=== PATIENT | female | born 1940 | race Caucasian/White ===

== ENCOUNTER 2017-10-24 15:51 | Observation (INO) | payer MEDICARE, OTHER, SELFPAY ==
[2017-10-24] VITALS (10 sets, daily range): BP systolic 126–168; BP diastolic 61–71; PULSE 57–72; RESP 14–22; TEMP 35.6–36.6; O2SAT 94–98; BMI 30.9; BMI 30.5
--- NOTE | 2017-10-24 16:08 | ED.VISSUMM ---
- ER Visit Summary Date of Service: 10/24/17 Chief Complaint: Chest pain History of Present Illness: The patient is a 76 F with left-sided chest pain. The pain has been going on for several days. It is associated with a backache. The patient thought this was her normal muscular pain, as she typically has back pain from time to time, but the chest pain is new. It feels like an ache. Nothing seems to make it worse. No change with exertion. No other associated symptoms like nausea, vomiting, shortness of breath. Patient has a history of hypertension, thyroid cancer, MVP, skipped heartbeats, and osteoarthritis. No history of heart disease, DVT, PE, or aortic disease. Physical Examination: Afebrile and vital signs unremarkable. Patient sitting upright and appears in no acute distress. Speaking in breathing comfortably. Skin is normal color without diaphoresis or pallor. Heart regular rate and rhythm. Lungs clear. Abdomen soft. Extremities unremarkable. Good pulses. Test Results: EKG shows sinus rhythm at a rate of 67. No sign of acute ischemia or infarction pattern. Laboratory studies and chest x-ray are pending. Emergency Department Course and Treatment: Patient treated with aspirin and placed on a monitor. Workup was unremarkable. The patient has a heart score of 4. She is currently pain-free. She was discussed with the hospitalist and will be admitted for observation in the PCU. Treatment Plan: As above Disposition: Admission Impression: 1. Chest pain This note was generated with [employer] dictation software. It may contain incorrect words, spelling, and punctuation that were not noted in review of the chart prior to signing ED Disposition - Plan for ED Patient: Chief Complaint: Chest Pain Referrals: Ly Ledbetter MD [Primary Care Provider] -
[2017-10-24] MEDS: Aspirin 81 MG TAB.CHEW 324 MG PO (16:12)
[2017-10-24 16:24] LABS: Absolute Lymphocyte Count 2.23 X10^3/ul (0.83-4.51); Absolute Neutrophil Count 2.6 X10^3/uL (2.0-7.7); Basophil# 0.02 X10^3/uL; Basophil% 0.3 % (0-1); Eosinophils% 3.4 % (0-5); Hematocrit 43.3 % (37-47); Lymphocyte # 2.23 X10^3/ul (4.0); Lymphocyte % 38.4 % (19-41); Mean Corp Hgb Conc 32.3 g/gl (32-36); Mean Corpuscular Hgb 32.3 pg (27.0-32.0); Mean Corpuscular Volume 99.8 fL (81-99); Mean Platelet Vol. 9.9 fl (6.2-12.0); Monocyte# 0.75 X10^3/uL; Monocyte% 12.9 % (0-10); Neutrophil % 44.8 % (47-70); POSITIVE COUNT NO; POSITIVE DIFFERENTIAL NO; POSITIVE MORPHOLOGY NO; Platelet Count 288 K/mm3 (150-450); RBC Distribution Width CV 12.9 % (11.6-14.6); RBC Distribution Width SD 47.6 fl (35.1-43.9); Red Blood Count 4.34 M/mm3 (4.2-5.4); White Blood Count 5.8 K/mm3 (4.4-11.0)
[2017-10-24 16:33] LABS: Anion Gap 7 (5-15); BUN 20 mg/dL (7-18); Calcium,Total 8.6 mg/dL (8.5-10.1); Chloride 107 mmol/L (98-107); EST Glomerular Filtration Rate 57 mL/min (>60); Est Glom Filt Rate - Afr Amer 69 mL/min (>60); Estimated Creatinine Clearance 40.04 ml/min; Glucose 114 mg/dL (74-106); Potassium 3.8 mmol/L (3.5-5.1); Sodium Level 140 mmol/L (136-145)
--- NOTE | 2017-10-24 19:21 | PCM.HP.STD ---
Problem List (1) Chest pain Status: Acute Qualifiers: Chest pain type: unspecified Qualified Code(s): R07.9 - Chest pain, unspecified (2) HTN (hypertension) Status: Chronic Qualifiers: Hypertension type: essential hypertension Qualified Code(s): I10 - Essential (primary) hypertension (3) Hypothyroidism Status: Chronic Qualifiers: Hypothyroidism type: unspecified Qualified Code(s): E03.9 - Hypothyroidism, unspecified (4) History of thyroid cancer Status: Chronic (5) Anxiety and depression Status: Chronic History of Present Illness Date of Admission: 10/24/17 Chief Complaint: Chest pain The patient is a 76 y/o F w/ PMHx: HTN, Hypothyroidism, Hx Thyroid CA s/p resection, Obesity, Anxiety and Depression, Chronic back discomfort who presents to the [facility] ED on 10/24/17 with history of onset chest pain, left sided, described as an ache, rated at its maximum discomfort 3/10, notes some radiation toward her right back however she does have chronic discomfort in the region and follows w/ massage therapies, noted to be intermittent without associated dyspnea, nausea, emesis, diaphoresis x 3 days. She denies any recent increased activity. She notes prior history of difficulty performing exercise stress testing secondary to her legs giving out but also notes severe anxiety with chemical stress testing. She denies any recent increased stress. She upon exam in the ED does have reproducible discomfort to the region she notes having chest discomfort. She does have a paternal family history of aortic aneurysm but states that she has been screened for this and testing has been unremarkable. In the ED work-up included AF, HR 62, BP 126/71, RR 14, 95% on RA, CBC w/ WBC 5.8, Hgb 14, Plts 288 without left shift, BMP with glucose 114, trop < 0.015, EKG with SR with no acute findings, CXR unremarkable. In the ED patient administered ASA 324 mg po x 1. Past Medical History Past Medical History (Chronic Problems): Chronic Problems HTN (hypertension) (Chronic) Hypothyroidism (Chronic) History of thyroid cancer (Chronic) Anxiety and depression (Chronic) Allergies lisinopril Allergy (Verified 10/24/17 16:06) Other COUGH morphine Allergy (Verified 10/24/17 16:06) Other DELIRIUM quinapril [From Accupril] Allergy (Verified 10/24/17 16:06) Other COUGH naproxen [From Naprosyn] Adverse Reaction (Verified 10/24/17 16:06) Nausea rofecoxib [From Vioxx] Adverse Reaction (Verified 10/24/17 16:06) Nausea Sulfa (Sulfonamide Antibiotics) Adverse Reaction (Verified 10/24/17 16:06) Nausea Home Medications: Ambulatory Orders Medication Instructions Recorded ALPRAZolam [Xanax] 0.125 mg PO BID PRN PRN 11/18/16 Cholecalciferol (Vitamin D3) 2,000 unit PO PETERSEN 11/18/16 [Vitamin D3] Diltiazem CD [Cardizem CD] 120 mg PO DAILY 11/18/16 Levothyroxine Sodium [Levoxyl] 100 mcg PO DAILY 11/18/16 Paroxetine HCl [Paxil] 20 mg PO DAILY 11/18/16 Spironolactone [Aldactone] 25 mg PO DAILY 11/18/16 Ibuprofen 400 mg PO PRN PRN 10/24/17 Optive 1 drop EACH EYE BID 10/24/17 Vitamin E 400 unit PO DAILY 10/24/17 Surgical History: - - Thyroid resection, cholecystectomy, hysterectomy, bilateral tubal ligation, bilateral partial knee replacement, bilateral carpal tunnel surgery, appendectomy, left foot surgery. 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 Tobacco Use: Non-smoker Alcohol: Occasional - Patient notes 1-2 glasses of white wine per day. Drugs: None - *Family History Maternal History Items: - - Patient notes a maternal family history of diabetes with mother passing at age 92. Paternal History Items: - - Patient notes a paternal family history of aortic aneurysm, passing in his 60s. Review of Systems Constitutional: Reports: Fatigue. Denies: Chills, Fever, Weight Change HEENT: Denies: Head Aches, Sinus Congestion, Sinus Drainage Cardiovascular: Reports: Chest Pain. Denies: Chest Pressure, Chest Tightness, Heaviness, Light Headedness, Orthopnea, Palpitations, Syncope Respiratory: Denies: Cough, Shortness of Breath, Shortness of breath at rest, Shortness of breath upon exertion, Sputum production Gastrointestinal: Denies: Abdominal Pain, Nausea, Vomiting Genitourinary: Denies: Dysuria Musculoskeletal: Reports: Back Pain. Denies: Joint Pain, Joint Tenderness Skin: Denies: Rash, Wounds Neurological: Denies: Numbness, Tingling, Focal weakness Psychiatric: Reports: Anxiety, Depression. Denies: Homicidal Ideations, Suicidal Ideations Hematologic/ Lymphatic: Denies: Easy Bruising, Easy Bleeding VTE Information - Inpt Only VTE Present on Admission: No VTE Mechan Device Prophylaxis: SCD's VTE Pharm Prophylaxis ordered?: Yes Patient Problems: Active and Suspected Problems Chest pain (Acute) Subjective: Seated upright in the ED bed, no acute distress, no current chest discomfort but is reproducible on examination. Objective: Physical Examination: General: awake, alert, oriented x 3 and cooperative, seated upright in the ED bed in no apparent distress. Skin: normal color, turgor, no icterus, cyanosis. HEENT: AT/NC, EOMI, PERRLA, MMM, no carotid bruits or JVD noted. Lungs: CTA bilaterally, moderate effort, mild decrease BL bases, no rales, ronchi or wheezing. Heart: Regular rate and rhythm; no gallop, rub audible, reproducible left-sided chest discomfort with palpation. Abdomen: soft, obese, NTTP, ND, normal BS, no HSM. Extremities: no cyanosis, clubbing, or edema. Neurological: patient awake, alert, oriented x 3; cognitive function intact; pupils equally reactive to light and accomodation; cranial nerves II-XII grossly normal, moving all 4 extremities, no focal deficits, strength globally decreased. Psychiatric: affect appears mildly anxious and asking several questions regarding stress testing, no acute evidence of depressive feelings. - Physical Exam Vital Signs Temp Pulse Resp BP Pulse Ox 96.1 F L 57 L 17 156/61 H 95 10/24/17 15:52 10/24/17 19:04 10/24/17 19:04 10/24/17 19:04 10/24/17 19:04 Oxygen Delivery Method Room Air Weight: 179 lb 14.355 oz Body Mass Index (BMI) 30.9 Laboratory Tests Past 24 Hrs 10/24/17 10/24/17 16:05 16:05 WBC 5.8 RBC 4.34 Hgb 14.0 Hct 43.3 MCV 99.8 H MCH 32.3 H MCHC 32.3 RDW 12.9 RDW Differential 47.6 H Plt Count 288 MPV 9.9 Immature Gran % (Auto) 0.200 Neut % (Auto) 44.8 L Lymph % (Auto) 38.4 [place] % (Auto) 12.9 H Eos % (Auto) 3.4 Baso % (Auto) 0.3 Absolute Neuts (auto) 2.6 Absolute Lymphs (auto) 2.23 Total Counted Not Reportable Sodium 140 Potassium 3.8 Chloride 107 Carbon Dioxide 26.0 Anion Gap 7 BUN 20 H Creatinine 1.00 Estim Creat Clear Calc 40.04 Est GFR (MDRD) Af Amer 69 Est GFR (MDRD) Non-Af 57 L BUN/Creatinine Ratio 20.0 Glucose 114 H Calcium 8.6 Troponin I < 0.015 Assessment/Plan All Active Problems Chest pain (Acute) The patient is a 76 y/o F w/ PMHx: HTN, Hypothyroidism, Hx Thyroid CA s/p resection, Obesity, Anxiety and Depression, Chronic back discomfort who presents to the [facility] ED on 10/24/17 with history of onset chest pain, left sided, described as an ache, rated at its maximum discomfort 3/10, notes some radiation toward her right back however she does have chronic discomfort in the region and follows w/ massage therapies, noted to be intermittent without associated dyspnea, nausea, emesis, diaphoresis x 3 days. (1) Atypical Chest Pain: Suspect likely musculoskeletal; however, not certain. EKG in ED SR without acute evidence of ischemia, CXR w/ no acute findings, initial trop <0.015. Will admit to PCU, place on a monitored bed to assure no acute myocardial infarction with serial cardiac enzymes and EKGs. Patient is unable to perform exercise thus will proceed with AM nuclear stress testing. ASA, NG, morphine. FLP in AM. Mag pending. (2) Hypothyroidism w/ Hx Thyroid CA: s/p resection. Continue home synthroid regimen, TSH and FT4 pending. (3) Anxiety and Depression: Likely contributing to acute presentation with prior history of unremarkable stress testing. Continue home low-dose Xanax and fluoxetine regimen. (4) Hypertension: Continue home regimen including Cardizem, spironolactone, PRN hydralazine. (5) Obesity: Weight loss and lifestyle changes encouraged. (6) DVT prophylaxis: SCD, Lovenox. Code Visit OBSV E&M: 29033 Initial observation care L3
--- NOTE | 2017-10-24 20:02 | NURSING ---
Called [facility] charge nur[facility]iel to send patient to the floor.
[2017-10-24 21:49] LABS: Magnesium 2.2 mg/dL (1.6-2.6); T4 Free Direct 1.26 ng/dL (0.76-1.46); Thyroid Stim Hormone (TSH) 0.78 uIU/mL (0.358-3.74)
[2017-10-24] MEDS: ALPRAZolam 0.25 MG Tablet 0.125 MG PO (22:36)
[2017-10-25] VITALS (7 sets, daily range): BP systolic 108–113; BP diastolic 57–78; PULSE 54–65; RESP 16–18; TEMP 36.2–36.6; O2SAT 94–97
[2017-10-25] MEDS: 0.9% Normal Saline 1,000 ML 100 ML IV (00:16)
[2017-10-25 02:24] LABS: Hematocrit 40.6 % (37-47); Hemoglobin 13.2 g/dl (12.0-15.0); Mean Corp Hgb Conc 32.5 g/gl (32-36); Mean Corpuscular Hgb 32.4 pg (27.0-32.0); Mean Corpuscular Volume 99.5 fL (81-99); Mean Platelet Vol. 10.1 fl (6.2-12.0); Platelet Count 275 K/mm3 (150-450); RBC Distribution Width CV 13.1 % (11.6-14.6); Red Blood Count 4.08 M/mm3 (4.2-5.4); White Blood Count 5.4 K/mm3 (4.4-11.0)
[2017-10-25 02:25] LABS: Scan Indicated on CBC? Y/N NO
[2017-10-25 02:29] LABS: Prothrombin Time (Protime)PT. 13.2 SECONDS (11.7-14.9)
[2017-10-25 02:30] LABS: Partial Thromboplast Time 31.2 Seconds (24.1-36.2)
[2017-10-25 02:42] LABS: ALB/GLOB Ratio 1.1 RATIO (0.9-2.4); AST(SGOT) 14 U/L (15-37); Alanine Aminotransfer ALT/SGPT 27 U/L (13-56); Albumin, Serum 3.4 g/dL (3.2-5.0); Alkaline Phosphatase 91 U/L (45-117); Anion Gap 7 (5-15); BUN 16 mg/dL (7-18); BUN/Creat Ratio 17.6 RATIO (10-20); Calcium,Total 8.6 mg/dL (8.5-10.1); Chloride 110 mmol/L (98-107); Cholesterol 180 mg/dL (200); Creatinine, Serum 0.91 mg/dL (0.55-1.02); EST Glomerular Filtration Rate 64 mL/min (>60); Est Glom Filt Rate - Afr Amer 77 mL/min (>60); Globulin 3.2 g/dL (2.2-4.2); Glucose 110 mg/dL (74-106); High Density Lipoprotein 52 mg/dL; Protein, Total 6.6 g/dL (6.4-8.2); Sodium Level 144 mmol/L (136-145); Triglycerides 101 mg/dL; Very Low Density Lipoprotein 20 mg/dL (5-40)
[2017-10-25] MEDS: Levothyroxine 100 MCG Tablet PO (06:11)
[2017-10-25] MEDS: Aspirin E.C. 81 MG Tablet PO (06:11)
[2017-10-25] MEDS: Spironolactone 25 MG Tablet PO (11:56)
[2017-10-25] MEDS: dilTIAZem CD 120 MG Capsule PO (11:56)
--- NOTE | 2017-10-25 13:13 | STRESSREP ---
Stress Test Report Pharmacologic myocardial perfusion stress test. 76-year-old lady with a history of chest pain. Medications aspirin, Cardizem, Pepcid. Stress protocol: Resting EKG demonstrates normal sinus rhythm with a rate of 63 bpm normal intervals and noted resting blood pressures 150/84 mmHg. 0.4 mg regadenoson was infused per usual protocol followed by Intravenous saline flush injection continuous EKG monitoring was performed. The maximum heart rate attained was 88 bpm which was 61% of maximum predicted heart rate maximum workload was 1 metabolic equivalent. Patient maintained sinus rhythm throughout the recording at rest were no ST or T-wave changes noted suggest abnormal flow reserve. Myocardial perfusion protocol. 11.6 mCi of technetium 99m sestamibi was injected at rest. 0.4 mg regadenoson was infused per usual protocol peak infusion 34.4 mCi of technetium 99m sestamibi was injected stress images were obtained stress and rest images were reconstructed and compared in the short axis vertical long and horizontal long axis. Gated images were also obtained Perfusion SPECT analysis: Review of the stress images demonstrate normal uptake of tracer noted in all areas of the myocardium. The resting images similarly demonstrate normal uptake of tracer noted in all areas of the myocardium. No areas of reversibility are noted suggest ischemia and no previous infarct is noted. Gated SPECT analysis: The gated ejection fraction is noted to be 83%. Conclusion: Normal pharmacologic myocardial perfusion stress test. Preserved ejection fraction.
--- NOTE | 2017-10-25 14:57 | PCM.DC ---
- Discharge Diagnoses Current Active Problems: Current Active and Chronic Problems HTN (hypertension) (Chronic) Hypothyroidism (Chronic) History of thyroid cancer (Chronic) Anxiety and depression (Chronic) Chest pain (Acute) You will use the following diet at home:: Cardiac Your food should be the consistency of: Regular Your liquids should be the consistency of: Regular/Thin Discharge Activity: Return to Normal Activity Allergies/Adverse Reactions: Allergies lisinopril Allergy (Verified 10/24/17 19:48) cough COUGH quinapril [From Accupril] Allergy (Verified 10/24/17 19:48) cough COUGH morphine Adverse Reaction (Verified 10/24/17 19:49) delirium DELIRIUM naproxen [From Naprosyn] Adverse Reaction (Verified 10/24/17 16:06) Nausea rofecoxib [From Vioxx] Adverse Reaction (Verified 10/24/17 16:06) Nausea Sulfa (Sulfonamide Antibiotics) Adverse Reaction (Verified 10/24/17 16:06) Nausea Medications to take at Discharge ALPRAZolam [Xanax] 0.125 mg PO BID PRN PRN 11/18/16 Cholecalciferol (Vitamin D3) [Vitamin D3] 2,000 unit PO PETRESEN 11/18/16 Diltiazem CD [Cardizem CD] 120 mg PO DAILY 11/18/16 Levothyroxine Sodium [Levoxyl] 100 mcg PO DAILY 11/18/16 Paroxetine HCl [Paxil] 20 mg PO DAILY 11/18/16 Spironolactone [Aldactone] 25 mg PO DAILY 11/18/16 Ibuprofen 400 mg PO PRN PRN 10/24/17 Optive 1 drop EACH EYE BID 10/24/17 Vitamin E 400 unit PO DAILY 10/24/17 Primary Care Physician: Ly Ledbetter MD [Primary Care Provider] - Please follow up with your Primary Care Physician in: 1-2 weeks Test Results: Test results from this visit will be discussed in further detail at your follow-up appointment, if applicable. Proposed Discharge Date: 10/25/17
--- NOTE | 2017-10-25 15:00 | PCM.DC.SUM ---
<Dima Gaines - Last Filed: 10/25/17 15:02> Discharge Date and Diagnosis - Problem List Patient Problems: Active and Suspected Problems Chest pain (Acute) Date of Admission: 10/24/17 Date of Discharge: 10/25/17 - Primary Discharge Diagnosis Active and Suspected Problems Chest pain (Acute), musculoskeletal HTN hypothyroidism obesity - Secondary Discharge Diagnosis Chronic Problems HTN (hypertension) (Chronic) Hypothyroidism (Chronic) History of thyroid cancer (Chronic) Anxiety and depression (Chronic) Hospital Course and Treatment Imaging Results: RAD/Chest 1 View (Portable) IMPRESSION: Normal x-ray examination of the chest. Stress test: Conclusion: Normal pharmacologic myocardial perfusion stress test. Preserved ejection fraction. Operations: None Procedures: Stress test Summary of Care Provided: Physical exam on day of discharge: General: Resting comfortably NAD Psych: A/Ox3 normal affect HEENT: PEARRLA AT NC Neck: Supple NT CV: RRR no m/t/r/g/h Resp: CTA Abd: [id number] Soft NT no guarding or rigidity Ext: DP2+= no edema Skin: W/D normal turgor Lymph/Heme: No active bleeding or adenopathy Neuro: CN2-12 intact Hospital course: The patient is a 76 year old F with a history of hypertension, anxiety depression, obesity, hypothyroidism, who presented to the emergency room with chief complaint of chest pain described as a 3 out of 10 left-sided achiness radiating towards her back with occasional palpitations. In the emergency room she had a negative chest x-ray, negative EKG, negative troponin. She was admitted to the PCU on telemetry for chest pain workup. She underwent a stress test following morning which was negative. She had negative troponin ?3, negative repeat EKGs, negative telemetry overnight. TSH and free T4 were normal. LDL was 108. Blood pressure was initially elevated at the time of admission however trended down without any further intervention. She is discharged home in stable condition and will need follow-up with her PCP in 1-2 weeks. This patient was seen by Dima Gaines PA-C under the supervision of Doctor Alvarez. [] Discharge Diet: Low fat/ Low Cholesterol, 2000 mg Sodium Diet Discharge Activity: Return to Normal Activity Home Medications: Medications to take at Discharge ALPRAZolam [Xanax] 0.125 mg PO BID PRN PRN 11/18/16 Cholecalciferol (Vitamin D3) [Vitamin D3] 2,000 unit PO PETERSEN 11/18/16 Diltiazem CD [Cardizem CD] 120 mg PO DAILY 11/18/16 Levothyroxine Sodium [Levoxyl] 100 mcg PO DAILY 11/18/16 Paroxetine HCl [Paxil] 20 mg PO DAILY 11/18/16 Spironolactone [Aldactone] 25 mg PO DAILY 11/18/16 Ibuprofen 400 mg PO PRN PRN 10/24/17 Optive 1 drop EACH EYE BID 10/24/17 Vitamin E 400 unit PO DAILY 10/24/17 Primary Care Physician: Ly Ledbetter MD [Primary Care Provider] - Please follow up with your Primary Care Physician in: 1-2 weeks Disposition: Home Minutes spent on discharge:: 35 Patient Condition:: Stable Medical Necessity - Tobacco Use Smoking Status: Never smoker - Did note history of secondhand smoke exposure from spouse but this was approximately 30 years prior. Tobacco Use: Non-smoker Meaningful Use Info Meaningful Use Diagnoses (Choose all that apply): None applicable <Lalito Alvarez - Last Filed: 10/25/17 15:16> Discharge Date and Diagnosis - Primary Discharge Diagnosis Active and Suspected Problems Chest pain (Acute) - Secondary Discharge Diagnosis Chronic Problems HTN (hypertension) (Chronic) Hypothyroidism (Chronic) History of thyroid cancer (Chronic) Anxiety and depression (Chronic) Hospital Course and Treatment Summary of Care Provided: The patient is a 76 year old F medical comorbidities include hypertension hypothyroidism obesity with BMI of 30.6 admitted with chest pain. Patient was placed on an monitored bed did rule out [place] with serial cardiac enzymes subsequently underwent a nuclear stress test which is negative for stress-induced ischemia. Patient was discharged and instructed to follow-up with PCP Hospital course: As elicited above by Dima Gaines Code Visit OBSV E&M: 65913 Observation care discharge
== END 2017-10-25 14:59 | disposition home or self-care (01) ==
LOC: ED 16:43 → PCU 19:54
PROVIDERS: Admitting Provider Family Medicine; Emergency Provider Emergency Medicine; Family Provider Internal Medicine; PCP Internal Medicine; Visit Provider Internal Medicine
DX: R07.89 Other chest pain (principal); M54.9 Dorsalgia, unspecified; I10 Essential (primary) hypertension; M19.90 Unspecified osteoarthritis, unspecified site; Z85.850 Personal history of malignant neoplasm of thyroid; E03.9 Hypothyroidism, unspecified; Z79.899 Other long term (current) drug therapy; F41.9 Anxiety disorder, unspecified; F32.9 Major depressive disorder, single episode, unspecified; E66.9 Obesity, unspecified; Z68.30 Body mass index [BMI] 30.0-30.9, adult; Z71.3 Dietary counseling and surveillance
CPT/HCPCS: 36415; 71045; 78452; 80048; 80053; 80061; 83735; 84439; 84443; 84484; 85025; 85027; 85610; 85730; 93005; 93017; 96360; 96361; 99218; 99283; A9500; J7030; A4216; G0378; J2785

== ENCOUNTER 2018-04-03 06:18 | Day surgery (SDC) | payer MEDICARE, OTHER, SELFPAY ==
[2018-04-03 06:40] VITALS: BP 147/66; PULSE 61; RESP 14; TEMP 36.4; O2SAT 96; BMI 30.7
--- NOTE | 2018-04-03 07:15 | GASB_PTH ---
PATIENT: RAYMOND LEDESMA LOC: EN U#:[id number] AGE/SX: 77/F ROOM: RE04/03/[address]: Dr. Kyle Roland MD : 1940 BED: DIS: 04/03/2018 SPEC #: [id number] RECD: 04/03/18 08:16 STATUS: KAREEN TOÑITO #: [id number] NEHEMIAS: 04/03/18 07:[address]: Kyle Roland DEPT: SURGICAL PATHOLOGY RECD BY: Cristofer James ENTERED: 04/03/18 10:27 SP TYPE: Gastric Bx OTHR DR: Dr. Ly Ledbetter MD Tissues: A - Gastric mucous membrane B - Gastric mucous membrane C - Esophagus, NOS Procedures: Special Stain Group II Surgery Specimen Level IV Alcian Blue/PAS (control) HEADER OPERATION: EGD (MOD) PRE-OP DIAGNOSIS: Abdominal pain TISSUE SUBMITTED: A - Duodenal biopsy, B - Antral biopsy for H. pylori and pathology, C - Distal esophageal biopsies MICROSCOPIC DIAGNOSIS A. Duodenum, biopsy: Focal nonspecific chronic inflammation. See comment. B. Gastric antrum, biopsy: Mild chronic gastritis. See comment. C. Distal esophagus, biopsy: Focal changes of reflux. Gastroesophageal junctional mucosa with chronic and mild acute inflammation. No evidence of intestinal metaplasia. See comment. AM:[email or web address] 04/04/18 COMMENT A. No significant flattening of villi is seen and the submucosa is not expanded by inflammatory cells. Clinical correlation is suggested. B. The results of immunohistochemistry for Helicobacter pylori will be reported separately ([id number]). C. Alcian blue/PAS stain with matched control supports the above diagnosis. MICROSCOPIC DESCRIPTION Slides are reviewed. GROSS DESCRIPTION A - Received in fixative is one container labeled with the patient's name and designated duodenal biopsy. The specimen consists of one irregular fragment of light desai soft tissue that measures 0.6 x 0.2 x 0.1 cm. The specimen is totally submitted in one cassette. B - Received in fixative is one container labeled with the patient's name and designated antral biopsy. The specimen consists of one irregular fragment of light desai soft tissue that measures 0.5 x 0.2 x 0.1 cm. The specimen is totally submitted in one cassette. C - Received in fixative is one container labeled with the patient's name and designated distal esophagus biopsy. The specimen consists of two irregular fragments of light desai soft tissue that in aggregate measure 0.5 x 0.3 x 0.1 cm. The specimen is totally submitted in one cassette. / AM:fabrizio 04/03/18 TC:3 CPT: 64620 x3, 41673
--- NOTE | 2018-04-03 07:15 | IMM_PTH ---
PATIENT: RAYMOND LEDESMA LOC: EN U#:[id number] AGE/SX: 77/F ROOM: RE04/03/[address]: Dr. Kyle Roland MD : 1940 BED: DIS: 04/03/2018 SPEC #: [id number] RECD: 04/03/18 10:39 STATUS: KAREEN REFlor #: [id number] NEHEMIAS: 04/03/18 07:[address]: Kyle Roland DEPT: IMMUNOHISTOCHEMISTRY RECD BY: Cassie Fuller ENTERED: 04/03/18 10:40 SP TYPE: IMMUNO OTHR DR: Dr. Ly Ledbetter MD Tissues: B - Stomach, NOS Procedures: H Pylori (initial) PHYSICIAN & INSTITUTION [place] [id number] SPECIMEN INFORMATION: Tissue Source: B - Antral biopsy Clinical Info: Abdominal pain Specimen Number: [id number] CPT code: 62317 METHODOLOGY: Deparaffinized sections of prefer/formalin-fixed tissue or PAP/DQ stained slides are incubated with monoclonal/polyclonal antibodies/oligonucleotide probes. Localization is made via biotin free immunoperoxidase method. Appropriate controls are performed and reacted as expected. Results on target cell population are indicated in the following table: RESULTS: ANTIBODY / CLONE RESULT Block B H Pylori (polyclonal) negative These tests were developed and their performance characteristics determined by [facility]. They may not have been cleared or approved by the [place]. Food and Drug Administration. The FDA has determined that such clearance or approval is not necessary. INTERPRETATION: B. Antral biopsy: Negative for Helicobacter pylori organisms. AM:fabrizio 04/04/18
[2018-04-03 07:45] VITALS: BP 126/59; BP 147/66; PULSE 63; RESP 16; TEMP 36.2; O2SAT 95
--- NOTE | 2018-04-03 07:48 | OP.ENDO_ITS ---
Patient Name: Evelyn Cintron Procedure Date: 04/03/2018 7:22 AM Date of : 1940 Age: 77 Procedure: Upper GI endoscopy Indications: Epigastric abdominal pain Providers: Kyle Roland MD Medicines: Midazolam 1.5 mg IV, Meperidine 50 mg IV Complications: No immediate complications. Procedure: Pre-Anesthesia Assessment: - Prior to the procedure, a History and Physical was performed, and patient medications and allergies were reviewed. The patient's tolerance of previous anesthesia was also reviewed. The risks and benefits of the procedure and the sedation options and risks were discussed with the patient. All questions were answered, and informed consent was obtained. Prior Anticoagulants: The patient has taken no previous anticoagulant or antiplatelet agents. ASA Grade Assessment: II - A patient with mild systemic disease. After reviewing the risks and benefits, the patient was deemed in satisfactory condition to undergo the procedure. After obtaining informed consent, the endoscope was passed under direct vision. Throughout the procedure, the patient's blood pressure, pulse, and oxygen saturations were monitored continuously. The gastroscope was introduced through the mouth, and advanced to the second part of duodenum. The upper GI endoscopy was accomplished without difficulty. The patient tolerated the procedure well. Moderate Sedation: Moderate (conscious) sedation was personally administered by the endoscopist. The following parameters were monitored: oxygen saturation, heart rate, blood pressure, and response to care. Total physician intraservice time was 10 minutes. Scope In: 7:36:36 AM Scope Out: 7:41:34 AM Total Procedure Duration Time 0 hours 4 minutes 58 seconds Findings: Esophagitis with no bleeding was found 40 cm from the incisors. Biopsies were taken with a cold forceps for histology. A 1 cm hiatal hernia was present. Diffuse mildly erythematous mucosa without bleeding was found in the gastric antrum. Biopsies were taken with a cold forceps for histology. Diffuse mildly erythematous mucosa without active bleeding and with no stigmata of bleeding was found in the duodenal bulb. Biopsies were taken with a cold forceps for histology. Impression: - Reflux esophagitis. Biopsied. - 1 cm hiatal hernia. - Erythematous mucosa in the antrum. Biopsied. - Erythematous duodenopathy. Biopsied. Findings would suggest that gastritis and reflux esophagitis are consistent with patient's complaint of epigastric pain and treatment has already been initiated with a proton pump inhibitor Recommendation: - Discharge patient to home. - Resume previous diet. - Continue present medications. - Telephone my office for pathology results in 1 week. Patient may travel as her plans are currently scheduled Procedure Code(s): --- Professional --- 55495, Esophagogastroduodenoscopy, flexible, transoral; with biopsy, single or multiple 19958, 59, Moderate sedation services provided by the same physician or other qualified health plant care worker performing the diagnostic or therapeutic service that the sedation supports, requiring the presence of an independent trained observer to assist in the monitoring of the patient's level of consciousness and physiological status; initial 15 minutes of intraservice time, patient age 5 years or older Diagnosis Code(s): --- Professional --- K21.0, Gastro-esophageal reflux disease with esophagitis K44.9, Diaphragmatic hernia without obstruction or gangrene K31.89, Other diseases of stomach and duodenum R10.13, Epigastric pain CPT copyright 2017 [employer]. All rights reserved. The codes documented in this report are preliminary and upon medical biller/coder review may be revised to meet current compliance requirements. Kyle Roland MD 04/03/2018 7:47:25 AM This report has been signed electronically. Number of Addenda: 0 Note Initiated On: 04/03/2018 7:22 AM
[2018-04-03 07:50] VITALS: BP 114/51; BP 136/62; BP 147/66; BP 149/63; BP 154/68; PULSE 58; RESP 16; O2SAT 95; O2SAT 97; O2SAT 98; O2SAT 99
[2018-04-03 07:55] VITALS: BP 127/56; BP 147/66; PULSE 59; RESP 16; O2SAT 93
[2018-04-03 08:00] VITALS: BP 124/57; BP 147/66; PULSE 59; RESP 16; TEMP 36.1; O2SAT 92
[2018-04-03 08:11] VITALS: BP 147/66
== END 2018-04-03 08:28 | disposition home or self-care (01) ==
LOC: EN 06:20 → AC 06:22
PROVIDERS: Family Provider Internal Medicine; PCP Internal Medicine; Referring Provider Surgery; Visit Provider Surgery
PROC: (CPT 43239; principal; 2018-04-03 07:10)
DX: K29.50 Unspecified chronic gastritis without bleeding (principal); K21.0 Gastro-esophageal reflux disease with esophagitis; K44.9 Diaphragmatic hernia without obstruction or gangrene; F34.1 Dysthymic disorder; R00.2 Palpitations; I05.9 Rheumatic mitral valve disease, unspecified; E66.3 Overweight; Z68.30 Body mass index [BMI] 30.0-30.9, adult; Z79.899 Other long term (current) drug therapy
CPT/HCPCS: 43239; 88305; 88313; 88342; 99152; J7120; J0290

== ENCOUNTER 2018-06-14 11:30 | Outpatient (RCR) | payer MEDICARE, OTHER, SELFPAY ==
--- NOTE | 2018-06-08 11:34 | HP.OTEVAL ---
Patient's Visit Information RAYMOND LEDESMA is a 77 year old F, referred to Occupational Therapy by Steve Ibanez MD, with a diagnosis of left trigger finger. Date of Evaluation: 06/08/18 Occupational Therapist: Ashlee Quevedo, CHRYSTAL/Nataly, CHT - Subjective Subjective: This 77 year old female was seen for initital OT eval following a left MF trigger finger sx. pt states she had sx in Feb and then was out ot town for 5 weeks. pt states she is having pain and difficulty with straightening her left MF. pt states she would like to know what she can do to make it feel better and not umcomfortable to use. - Pain left MF 5 Pain Intensity Range: 0, 5 - ROM PIP: left MF 0/95 right 0/95 DIP: left MF 0/60 right 0/50 ROM Comments: pt demo - Strength Cone Tender: left 25# right 33# Tripod Pinch: left 12# right 12# - Hand/Wrist Evaluation Total Score of Pain & Functional Sections: 31 - Goals Goal:: pt will demo ROM full functional ROM with no pain greater than 1/10 by d/c Goal:: pt will demo understanding of scar mtg by end of 2nd session to decrease scar adhesions and improve pts ROM by d/c - Rehabilitation General Assessment: pt demo with scar adhesion to left FDP/FDS limiting pts ext of lef MF- pt demo multiplue OA deformities 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 pt has pain with AROM. pt would benefit from skilled OT services 1-2x week for 3-4 weeks. today pt ed. on scar mtg, ROM and ice prn. pt demo understanding and agrees to POC Rehabilitation Potential: Excellent - Anticipated Interventions Anticipated Interventions: A/AAROM/PROM, Scar Care, Triggerpoint Release, Modalities, Orthoses - Visit Plan Frequency: 1-2x /Week Duration: 4 Weeks TEXT: Thank you for the opportunity to evaluate your patient. For Medicare and Medicare HMO plans, please review the plan of care and approve it. It will need to be FAXED BACK to us at [phone] for Medicare purposes. Please let me know if there are questions or concerns regarding this plan of care. Physician Signature: Date:
--- NOTE | 2018-06-11 08:58 | HP.OTEVAL ---
Patient's Visit Information RAYMOND LEDESMA is a 77 year old F, referred to Occupational Therapy by Steve Ibanez MD, with a diagnosis of left trigger finger. Date of Evaluation: 06/08/18 Occupational Therapist: Ashlee Quevedo, CHRYSTAL/Nataly, CHT - Subjective Subjective: This 77 year old female was seen for initital OT eval following a left MF trigger finger sx. pt states she had sx in Feb and then was out ot town for 5 weeks. pt states she is having pain and difficulty with straightening her left MF. pt states she would like to know what she can do to make it feel better and not umcomfortable to use. - Pain left MF 5 Pain Intensity Range: 0, 5 - ROM PIP: left MF 0/95 right 0/95 DIP: left MF 0/60 right 0/50 ROM Comments: pt demo - Strength Surface Plate Inspector: left 25# right 33# Tripod Pinch: left 12# right 12# - Hand/Wrist Evaluation Total Score of Pain & Functional Sections: 31 - Goals Goal:: pt will demo ROM full functional ROM with no pain greater than 1/10 by d/c Goal:: pt will demo understanding of scar mtg by end of 2nd session to decrease scar adhesions and improve pts ROM by d/c Goal:: Pt will demo understanding of joint protection and ergonomics when performing BADLs and IADLs by d/c. Pt will demo understanding of adaptive Equipment use to decrease stress on joints to allow pt to perform BADSL and IADLS at ROBB level. 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 pt has pain with AROM. pt would benefit from skilled OT services 1-2x week for 3-4 weeks. today pt ed. on scar mtg, ROM and ice prn. pt demo understanding and agrees to POC Rehabilitation Potential: Excellent - Anticipated Interventions Anticipated Interventions: A/AAROM/PROM, Scar Care, Triggerpoint Release, Modalities, Orthoses - Visit Plan Frequency: 1-2x /Week Duration: 4 Weeks TEXT: Thank you for the opportunity to evaluate your patient. For Medicare and Medicare HMO plans, please review the plan of care and approve it. It will need to be FAXED BACK to us at [phone] for Medicare purposes. Please let me know if there are questions or concerns regarding this plan of care. Physician Signature: Date:
--- NOTE | 2018-09-26 16:25 | HP.OT.NRP ---
HP - Discharge Summary - Patient Information RAYMOND LEDESMA was seen in my office for initial evaluation on 06/08/18. The following Plan of Care was established for this patient: Initial Frequency: 1-2x /Week Initial Duration: 4 Weeks - Anticipated Interventions Anticipated Interventions: A/AAROM/PROM, Scar Care, Triggerpoint Release, Modalities, Orthoses This patient was last seen in our office 06/18/18. Pertinent comments regarding their Occupational therapy will appear below: Pt was seen for 2 therapy visits due to trigger finger- pt's last visit she reported no pain- pt has not returned at this time and is D/C from OT services due to time lapse in tx. At this point I will be discontinuing this patient from occupational therapy. I would be happy to see this patient again in the future if found appropriate by the physician. Thank you! Ashlee Quevedo, OTR/L, CHT
== END 2018-06-14 19:00 | disposition home or self-care (01) ==
LOC: OT 11:30
PROVIDERS: Family Provider Internal Medicine; PCP Internal Medicine; Referring Provider Orthopaedic Surgery; Visit Provider Orthopaedic Surgery
DX: M65.332 Trigger finger, left middle finger (principal); M19.042 Primary osteoarthritis, left hand
CPT/HCPCS: 97035; 97140; 97166

== ENCOUNTER 2019-01-29 07:13 | Day surgery (SDC) | payer MEDICARE, OTHER, SELFPAY ==
--- NOTE | 2019-01-15 03:50 | HP_ITS ---
Intake Vital Signs 01/15/19 Body Mass Index (BMI) 30.9 01/15/19 Height 5 ft 3.5 in 01/15/19 Weight: 175 lb 01/15/19 Body Mass Index (BMI) 30.5 01/15/19 Blood Pressure 158/81 H 01/15/19 Blood Pressure Location Rt brachial 01/15/19 Blood Pressure Position Sitting 01/15/19 Respiratory Rate 18 Intake Visit Reasons: cscope Chief Complaint: Chest Pain Regional Airline Pilot Required: No Is patient in pain?: No Allergies lisinopril Allergy (Verified 01/15/19 15:33) cough quinapril [From Accupril] Allergy (Verified 01/15/19 15:33) cough morphine Adverse Reaction (Verified 01/15/19 15:33) delirium naproxen [From Naprosyn] Adverse Reaction (Verified 01/15/19 15:33) Nausea rofecoxib [From Vioxx] Adverse Reaction (Verified 01/15/19 15:33) Nausea Sulfa (Sulfonamide Antibiotics) Adverse Reaction (Verified 01/15/19 15:33) Nausea Medications ALPRAZolam [Xanax] 0.125 mg PO BID PRN PRN 11/18/16 [History Confirmed 01/15/19] Cholecalciferol (Vitamin D3) [Vitamin D3] 2,000 unit PO PETERSEN 11/18/16 [History Confirmed 01/15/19] Levothyroxine Sodium [Levoxyl] 100 mcg PO DAILY 11/18/16 [History Confirmed 01/15/19] Paroxetine [Paxil] 20 mg PO DAILY 11/18/16 [History Confirmed 01/15/19] Spironolactone [Aldactone] 25 mg PO DAILY 11/18/16 [History Confirmed 01/15/19] Optive 1 drp EACH EYE BID 10/24/17 [History Confirmed 01/15/19] melatonin 3 mg tablet 3 mg PO HS PRN 11/21/18 [History Confirmed 01/15/19] diltiazem CD 120 mg capsule,extended release 24 hr 120 mg PO DAILY #90 cap 12/04/18 [Rx Confirmed 01/15/19] PFSH Medical History Paroxysmal supraventricular tachycardia (Chronic) Hyperlipidemia (Chronic) Essential (primary) hypertension (Chronic) History of thyroid cancer (Chronic) Anxiety and depression (Chronic) Diverticulosis (Chronic) Dysmetabolic syndrome X (Chronic) Hemorrhoids (Chronic) Hypothyroidism (Chronic) Obesity (Chronic) Diarrhea (Resolved) Epigastric pain (Resolved) Surgical History Hx of appendectomy (Resolved) Hx of arthroscopic knee surgery (Resolved) Hx of carpal tunnel repair (Resolved) Hx of cataract extraction (Resolved) Hx of cholecystectomy (Resolved) Hx of colonoscopy (Resolved) Hx of foot surgery (Resolved) Hx of hysterectomy (Resolved) Hx of thyroidectomy (Resolved) Family History Mother Hypertension Diabetes Arthritis Father Arthritis Seizures Sister Arthritis Social History (Updated 01/15/19 @ 15:50 by Kyle Roland MD) Smoking Status: Never smoker second hand exposure: No alcohol intake: current alcohol intake frequency: a few times a week Alcohol type: wine substance use type: does not use caffeine: Yes frequency: does not exercise HPI HPI HPI: RAYMOND LEDESMA, is a 78 F who presents to the office today for HPI HPI Surgical H&P: Yes HPI: RAYMOND LEDESMA, is a 78 F who presents to the office today for surgical consultation regarding a personal history of colon polyps. The patient's most recent colonoscopy was January 2016. At that point she had 3 polyps identified. 2 were in the descending colon. One was in the sigmoid colon. Final pathology all consistent with tubular adenomas. The patient denies any bright red blood per rectum or melena. She does have some intermittent constipation and irregular bowel habit. No unexpected weight loss. She is now 3 years since the loss of her . She tries to stay reasonably active. ROS General General: No weight change, appetite, fatigue, colon cancer, breast cancer or weakness HEENT HEENT: Yes eye surgery; no difficulty swallowing, eye injury, swollen glands or hoarseness Endo Endocrine: Yes thyroid disease and thyroid cancer; no diabetes mellitus, Hair loss, heat intolerance or cold intolerance Skin Skin: No rash or changing moles Musc Musculoskeletal: Yes arthritis and rheumatoid arthritis; no back problems, gout or joint pain Cardio Cardiovascular: Yes high blood pressure; no murmur, pacemaker, heart disease, atrial fibrillation, heart attack, heart stent, palpitations, shortness of breat with exertion or chest pain Psych Psychiatric: Yes depression and anxiety; no hearing voices Resp Respiratory: No shortness of breath, No sleep apnea, No cough, No COPD, No asthma, No emphysema, No wheezing Gastro Gastrointestinal: Yes abdominal pain, No nausea or vomiting, No diarrhea, No constipation, No blood in stool, Yes acid reflux, No hemorrhoids, No ulcers, Yes gallbladder problem, No black,tarry stools Erick Hematologic: No blood thinners, No blood disorders, No bleeding, No anemia, No blood clots Neuro Neurologic: No weakness Exam Const General: cooperative, comfortable, no acute distress Nutritional Appearance: obese Orientation: alert, awake HENMO Head: normal to inspection Chest Chest palpation & inspection: normal inspection of the chest Resp Effort & Inspection: normal respiratory effort Auscultation: clear to auscultation bilaterally Cardio Rate: regular rate Rhythm: regular rhythm Heart Sounds: no murmurs GI Palpation: soft, no hepatosplenomegaly Auscultation: normal bowel sounds Skin General: no rashes or lesions noted Neuro Cognition: normal cognition Extrem General: no calf tenderness bilaterally Psych Affect: normal affect Assessment & Plan Problems 1. Personal history of colonic polyps Z86.010 Plan I recommend the patient a colonoscopy with possible biopsy or polypectomy as indicated. She is aware of the technique, benefits, risks, alternatives. She has had an opportunity to ask and have questions answered. We will schedule and proceed at her discretion. Because of the constipation we will provide magnesium citrate on day 1 and then MiraLAX split prep on day 2. I appreciate the ongoing opportunity of assisting with her surgical care CC: Dr. Ly Roland M.D., F.A.C.S. Coding Level of Care Code Off vis,est,level 2 Diagnoses Personal history of colonic polyps Z86.010 01/15/19 6060 <Electronically signed by Kyle huggins MD> Date _ Kyle Roland MD I have re-examined the patient. There are no clinical changes since date of exam.
[2019-01-15 15:33] VITALS: BMI 30.9
[2019-01-29] VITALS (8 sets, daily range): BP systolic 111–151; BP diastolic 55–81; PULSE 55–57; RESP 16–18; TEMP 36.2–36.3; O2SAT 91–98; BMI 30.4
[2019-01-29] MEDS: Lactated Ringers 1,000 ML 100 ML IV (07:53)
--- NOTE | 2019-01-29 08:15 | COLBX_PTH ---
PATIENT: RAYMOND LEDESMA LOC: EN U#:[id number] AGE/SX: 78/F ROOM: RE01/29/[address]: Dr. Kyle Roland MD : 1940 BED: DIS: 01/29/2019 SPEC #: [id number] RECD: 01/29/19 09:30 STATUS: KAREEN TOÑITO #: [id number] NEHEMIAS: 01/29/19 08:[address]: Kyle Roland DEPT: SURGICAL PATHOLOGY RECD BY: Alphonso Fulton ENTERED: 01/29/19 11:03 SP TYPE: COLON BX JIMENEZ DR: Dr. Ly Ledbetter MD Tissues: A - Ascending colon B - Ascending colon C - Sigmoid colon biopsy Procedures: Surgery Specimen Level IV HEADER OPERATION: Colonoscopy (MOD) PRE-OP DIAGNOSIS: Polyp history TISSUE SUBMITTED: A - Mid ascending colon polyp by cold snare, B - Biopsy of distal ascending colon polyp, C - Biopsy of proximal sigmoid biopsy MICROSCOPIC DIAGNOSIS A. Mid ascending colon polyp, biopsy: Tubular adenoma. B. Distal ascending colon polyp, biopsy: Fragments of tubular adenoma. C. Proximal sigmoid polyp, biopsy: Fragments of hyperplastic polyp. BRANDI:fabrizio 01/30/19 MICROSCOPIC DESCRIPTION Slides are reviewed. GROSS DESCRIPTION A - Received in fixative is one container labeled with the patient's name and designated mid ascending colon polyp. The specimen consists of multiple irregular fragments of light desai soft tissue that in aggregate measure 1.5 x 0.3 x 0.1 cm. The specimen is totally submitted in one cassette. B - Received in fixative is one container labeled with the patient's name and designated biopsy of distal ascending colon polyp. The specimen consists of multiple irregular fragments of light desai soft tissue that in aggregate measure 1 x 0.3 x 0.1 cm. The specimen is totally submitted in one cassette. C - Received in fixative is one container labeled with the patient's name and designated biopsy of proximal sigmoid polyp. The specimen consists of two irregular fragments of light desai soft tissue that in aggregate measure 0.5 x 0.4 x 0.1 cm. The specimen is totally submitted in one cassette. / BRANDI:fabrizio 01/29/19 TC:1 CPT: 49812 x3
--- NOTE | 2019-01-29 08:58 | OP.COLON_ITS ---
Patient Name: Evelyn Cintron Procedure Date: 01/29/2019 8:27 AM Date of : 1940 Age: 78 Procedure: Colonoscopy Indications: High risk colon cancer surveillance: Personal history of colonic polyps Providers: Kyle Roland MD Referring MD: Kyle Roland MD Medicines: Midazolam 3 mg IV, Meperidine 75 mg IV Patient Profile: Last Colonoscopy: January 2016. Complications: No immediate complications. Procedure: Pre-Anesthesia Assessment: - Prior to the procedure, a History and Physical was performed, and patient medications and allergies were reviewed. The patient's tolerance of previous anesthesia was also reviewed. The risks and benefits of the procedure and the sedation options and risks were discussed with the patient. All questions were answered, and informed consent was obtained. Prior Anticoagulants: The patient has taken no previous anticoagulant or antiplatelet agents. ASA Grade Assessment: II - A patient with mild systemic disease. After reviewing the risks and benefits, the patient was deemed in satisfactory condition to undergo the procedure. After I obtained informed consent, the scope was passed under direct vision. Throughout the procedure, the patient's blood pressure, pulse, and oxygen saturations were monitored continuously. The Duodenoscope was introduced through the anus and advanced to the cecum, identified by appendiceal orifice and ileocecal valve. The colonoscopy was performed without difficulty. The patient tolerated the procedure well. The quality of the bowel preparation was good. The ileocecal valve and the appendiceal orifice were photographed. Moderate Sedation: Moderate (conscious) sedation was personally administered by the endoscopist. The following parameters were monitored: oxygen saturation, heart rate, blood pressure, and response to care. Total physician intraservice time was 15 minutes. Scope In: 8:34:14 AM Scope Withdrawal Time 0 hours 13 minutes 35 seconds Scope Out: 8:51:29 AM Total Procedure Duration Time 0 hours 17 minutes 15 seconds Findings: The digital rectal exam findings include non-thrombosed external hemorrhoids, non-thrombosed internal hemorrhoids and internal hemorrhoids that prolapse with straining, but spontaneously regress to the resting position (Grade II). Pertinent negatives include {skip} . A 7 mm polyp was found in the mid ascending colon. The polyp was sessile. The polyp was removed with a cold snare. Resection and retrieval were complete. A 5 mm polyp was found in the distal ascending colon. The polyp was sessile. The polyp was removed with a cold biopsy forceps. Resection and retrieval were complete. A 4 mm polyp was found in the proximal sigmoid colon. The polyp was sessile. The polyp was removed with a cold biopsy forceps. Resection and retrieval were complete. Scattered diverticula were found in the sigmoid colon. Impression: - Non-thrombosed external hemorrhoids, non-thrombosed internal hemorrhoids and internal hemorrhoids that prolapse with straining, but spontaneously regress to the resting position (Grade II) found on digital rectal exam. - One 7 mm polyp in the mid ascending colon, removed with a cold snare. Resected and retrieved. - One 5 mm polyp in the distal ascending colon, removed with a cold biopsy forceps. Resected and retrieved. - One 4 mm polyp in the proximal sigmoid colon, removed with a cold biopsy forceps. Resected and retrieved. - Diverticulosis in the sigmoid colon. Recommendation: - Discharge patient to home. - Resume previous diet. - Continue present medications. - Repeat colonoscopy is not recommended due to current age (66 years or older) for screening purposes. - Telephone my office for pathology results in 1 week. Procedure Code(s): --- Professional --- 96491, Colonoscopy, flexible; with removal of tumor(s), polyp(s), or other lesion(s) by snare technique 92203, 59, Colonoscopy, flexible; with biopsy, single or multiple 79103, 59, Moderate sedation services provided by the same physician or other qualified health direct care specialist performing the diagnostic or therapeutic service that the sedation supports, requiring the presence of an independent trained observer to assist in the monitoring of the patient's level of consciousness and physiological status; initial 15 minutes of intraservice time, patient age 5 years or older Diagnosis Code(s): --- Professional --- Z86.010, Personal history of colonic polyps K64.1, Second degree hemorrhoids K64.4, Residual hemorrhoidal skin tags D12.2, Benign neoplasm of ascending colon D12.5, Benign neoplasm of sigmoid colon K57.30, Diverticulosis of large intestine without perforation or abscess without bleeding CPT copyright 2017 [employer]. All rights reserved. The codes documented in this report are preliminary and upon remote medical coder review may be revised to meet current compliance requirements. Kyle Roland MD 01/29/2019 8:57:49 AM This report has been signed electronically. Number of Addenda: 0 Note Initiated On: 01/29/2019 8:27 AM
== END 2019-01-29 10:08 | disposition home or self-care (01) ==
LOC: EN 07:13 → AC 07:15
PROVIDERS: Family Provider Internal Medicine; PCP Internal Medicine; Referring Provider Surgery; Visit Provider Surgery
PROC: 0DJD8ZZ Inspection of Lower Intestinal Tract, Via Natural or Artificial Opening Endoscopic (ICD-10-PCS; CPT 45378; principal; 2019-01-29 08:10)
DX: D12.2 Benign neoplasm of ascending colon (principal); K64.1 Second degree hemorrhoids; K57.30 Diverticulosis of large intestine without perforation or abscess without bleeding; Z86.010 Personal history of colon polyps; F41.9 Anxiety disorder, unspecified; F32.9 Major depressive disorder, single episode, unspecified; E03.9 Hypothyroidism, unspecified; E66.9 Obesity, unspecified; Z68.30 Body mass index [BMI] 30.0-30.9, adult; Z85.850 Personal history of malignant neoplasm of thyroid
CPT/HCPCS: 45380; 88305; 99152; 99153; J7120

== ENCOUNTER 2020-03-20 14:13 | Outpatient (RCR) | payer MEDICARE, OTHER, SELFPAY ==
[2019-11-21 13:43] VITALS: BMI 31.0
== END 2020-03-20 23:59 ==
LOC: IMMUN 14:13
PROVIDERS: PCP Internal Medicine; Visit Provider Family Medicine
DX: Z23 Encounter for immunization (principal)
CPT/HCPCS: 0011A; 0012A; 91301

== ENCOUNTER → 2020-04-16 14:56 | Outpatient (CLI) | payer MEDICARE, OTHER, SELFPAY ==
[2019-11-21 13:43] VITALS: BMI 31.0
--- NOTE | 2020-04-16 15:15 | MRI_ITS ---
STUDY: MRA OF THE HEAD WITHOUT CONTRAST REASON FOR EXAM: Female, 79 years old. Pulsatile tinnitus mostly left ear TECHNIQUE: 3-D bjaw-rl-[id number] (TOF) imaging was performed with MIPs. The study was performed unenhanced. COMPARISON: 10/26/2007 FINDINGS: Normal bilateral petrous carotid arteries. Normal right cavernous carotid artery with a normal supraclinoid bifurcation. Normal left cavernous carotid artery with a normal supraclinoid bifurcation. Normal right A1 segments of the anterior cerebral artery. Normal left A1 segments of the anterior cerebral artery. Normal intact anterior communicating artery (ACOM). Normal bilateral A2 segments of the anterior cerebral arteries. Normal right M1 and M2 segments of the middle cerebral arteries, with a normal M1 bifurcation. Normal left M1 and M2 segments of the middle cerebral arteries, with a normal M1 bifurcation. Normal right posterior communicating artery (PCOM). Left posterior communicating artery not visualized consistent with normal variant Diffusely narrowed distal right vertebral. Normal left vertebral. Normal basilar artery with a normal basilar bifurcation. The visualized bilateral superior cerebellar (SCA) arteries are normal. Normal bilateral P1, P2 and visualized P3 segments of the posterior cerebral arteries. There is no demonstrated aneurysm of the [place]. There is no major vessel occlusion or hemodynamically significant stenosis. There is no demonstrated abnormality of the visualized brain. MRI/MRA Head ONLY without Contrast IMPRESSION: Diffusely narrowed distal right vertebral artery. No other significant atherosclerotic disease Electronically Signed: Albert White MD at 15:59 EST , Service support ,
== END ==
PROVIDERS: PCP Internal Medicine; Referring Provider Otolaryngology Otolaryngology/Facial Plastic Surgery; Visit Provider Otolaryngology Otolaryngology/Facial Plastic Surgery
DX: H93.A9 Pulsatile tinnitus, unspecified ear (principal)
CPT/HCPCS: 70544

== ENCOUNTER → 2020-05-06 12:57 | Outpatient (CLI) | payer MEDICARE, OTHER, SELFPAY ==
[2019-11-21 13:43] VITALS: BMI 31.0
--- NOTE | 2020-05-06 13:01 | CDU_ITS ---
Reason For Study: Bilateral pulsatile tinnitus Rt. Velocities/BP Lt. Velocities/BP Prox CCA 74.7/12.1 cm/sec. Prox CCA 72.8/9.1 cm/sec. Mid CCA 64.3/10.8 cm/sec. Mid CCA 76.1/10.2 cm/sec. Dist CCA 64.3/12.1 cm/sec. Dist CCA 52.2/7.8 cm/sec. Prox ICA 49.9/9.5 cm/sec. Prox ICA 48.5/10.7 cm/sec. Mid ICA 60.4/12.1 cm/sec. Mid ICA 77.8/15.4 cm/sec. Dist ICA 83.8/16 cm/sec. Dist ICA 104.7/14.6 cm/sec. Rt. ICA/CCA = 1.3. Lt. ICA/CCA = 1.4. Prox ECA 100.8/6.9 cm/sec. Prox ECA 75.9/4.1 cm/sec. Rt. Vert. 66.2/9.1 cm/sec. Lt. Vert. 54.1/12.6 cm/sec. Right Extracranial There is intimal thickening but no significant atherosclerotic plaque noted in the right common carotid artery. There is intimal thickening but no significant atherosclerotic plaque noted in the right internal carotid artery. There is intimal thickening but no significant atherosclerotic plaque noted in the right external carotid artery. Antegrade flow is noted in the right vertebral artery. Left Extracranial There is intimal thickening but no significant atherosclerotic plaque noted in the left common carotid artery. There is intimal thickening but no significant atherosclerotic plaque noted in the left internal carotid artery. There is intimal thickening but no significant atherosclerotic plaque noted in the left external carotid artery. Antegrade flow is noted in the left vertebral artery. Procedure Carotid Duplex 13680. This is a Carotid Duplex examination using B-mode, color flow and specral Doppler. Exam performed in department. Interpretation Summary Intimal thickening without hemodynamically significant plaque proximal right internal carotid artery with less than 50% stenosis Intimal thickening with no hemodynamically significant plaque proximal left internal carotid artery with less than 50% stenosis Less than 50% stenosis bilateral external carotid arteries Patent and antegrade vertebral arteries bilaterally Ordering Physician: Patricio Hirsch Referring Physician: Ly Ledbetter M.D. Performed By: Davida Mcclure RVT
== END ==
PROVIDERS: PCP Internal Medicine; Referring Provider Otolaryngology Otolaryngology/Facial Plastic Surgery; Visit Provider Otolaryngology Otolaryngology/Facial Plastic Surgery
DX: R42 Dizziness and giddiness (principal); H93.13 Tinnitus, bilateral
CPT/HCPCS: 93880

== ENCOUNTER → 2020-05-07 08:57 | Outpatient (CLI) | payer MEDICARE, OTHER, SELFPAY ==
[2019-11-21 13:43] VITALS: BMI 31.0
--- NOTE | 2020-05-07 08:59 | NM_ITS ---
CLINICAL: 79-year-old female with reported history of painful partial left knee arthroplasty operated approximately 12 years previous. LIMITED 99m Tc MDP THREE PHASE BONE SCINTIGRAPHY COMPARISON: None available FINDINGS: Following the intravenous administration of 25.6 mCi of 99m Tc MDP, three-phase bone acquisitions of the knee articulations reveal: 1. The flow and immediate static blood pool acquisitions demonstrate normal arterial phase distribution of the radiopharmaceutical to the bilateral knee arthroplasties. Venous hyperemia is demonstrated in the region of the femoral component of the painful left knee prosthetic device. 2. Delayed images depict persistent increased radiopharmaceutical concentration observed in the femoral and newly defined in the tibial components of the symptomatic left knee prosthesis corresponding in part to the blood pool changes. 3. An increase in tracer distribution is visualized in the femoral and tibial components of the asymptomatic right knee arthroplasty most consistent with normal postsurgical change. Facilitated uptake is manifest in the patellofemoral compartment of the right knee. 4. The remaining limited skeletal structures are scintigraphically unremarkable. NM/Bone Scan Three Phase IMPRESSION: 1. The increase in radiopharmaceutical concentration observed in the tibial-femoral components of the partial left knee prosthesis is consistent with a high likelihood of loosening in the setting of operative intervention > 2 years prior to the current presentation. If infection is a diagnostic consideration, correlation with labeled leukocyte imaging is recommended. 2. Enhanced radiotracer uptake observed in the patellofemoral compartment of the right knee is most consistent with degenerative arthritis. Electronically Signed: Yahir Mejia DO at 23:14 EST Tel , Service support ,
== END ==
PROVIDERS: PCP Internal Medicine; Visit Provider Physician Assistant
DX: Z96.652 Presence of left artificial knee joint (principal)
CPT/HCPCS: 78315

== ENCOUNTER → 2020-05-26 12:21 | Outpatient (CLI) | payer MEDICARE, OTHER, SELFPAY ==
[2019-11-21 13:43] VITALS: BMI 31.0
[2020-05-26 12:40] LABS: CREATININE FINGERSTICK 1.1 mg/dL (0.55-1.02)
--- NOTE | 2020-05-26 13:00 | MRI_ITS ---
STUDY: MRI BRAIN WITH AND WITHOUT CONTRAST (ATTENTION INTERNAL AUDITORY CANALS - I.A.C.''s) REASON FOR EXAM: Female, 79 years old. Hearing loss, tinnitus-LEFT EAR TECHNIQUE: Standardized multiplanar fat and water weighted pulse sequences were obtained. IV 17ml Dotarem was administered for the contrast portion of the examination. COMPARISON: None. FINDINGS: Normal bilateral temporal bones. Normal bilateral internal auditory canals. There is no demonstrated intracanalicular or cisternal vestibular schwannoma (acoustic neuroma). There is no enhancement of the bilateral VIIth or VIIIth cranial nerves. Normal bilateral cochlea, vestibules and semicircular canals. Normal size of the ventricles and extra-axial spaces for the patient''s age. There are a limited number of small white matter hyperintensities, distributed throughout the deep white matter tracts of the cerebral hemispheres, consistent with mild chronic white matter ischemic changes. Normal bilateral basal ganglia. Normal flow voids within the major intracranial circulation suggesting patency by spin echo criteria. Normal venous enhancement. There is no enhancing intra-axial or extra-axial abnormality. There is no extra-axial fluid accumulation. Normal sella turcica, pituitary gland, infundibular stalk, optic chiasm and hypothalamus. Normal tectal plate and pineal gland. Normal midbrain, diana and medulla. Normal cerebellum. Normal basal cisterns. MRI/Brain W/WO Contrast IMPRESSION: There is no demonstrated intracanalicular or cisternal vestibular schwannoma (acoustic neuroma). No acute intracranial abnormality or masses. Electronically Signed: [place] Diane MD at 8:59 EDT Tel , Service support ,
== END ==
PROVIDERS: PCP Internal Medicine; Referring Provider Otolaryngology Otolaryngology/Facial Plastic Surgery; Visit Provider Otolaryngology Otolaryngology/Facial Plastic Surgery
DX: H93.13 Tinnitus, bilateral (principal); H90.3 Sensorineural hearing loss, bilateral
CPT/HCPCS: 70553; A9575

== ENCOUNTER 2021-09-08 14:00 | Outpatient (RCR) | payer MEDICARE, OTHER, SELFPAY ==
--- NOTE | 2021-08-05 16:56 | HP.PTEVAL_ITS ---
Patient's Visit Information RAYMOND LEDESMA is a 80 year old F referred to Physical Therapy by Dr. Andrea Grullon MD with a diagnosis of Lumbar Pain. Date of Evaluation: 08/05/21 Physical Therapist: Giseslle Keith DPT - Visit Plan Frequency: 2x /Week Duration: 4 Weeks Plan: Focus on core s/s. HEP Given IE: Postural education, TA contraction, glut set, hip abd, hip add - Subjective Patient reports that she has had back pain on/off the past several years- but its getting worse. Patient reports that she has pain in the lumbar spine and radiates to the thoracic pain- its the muscles on the outside. Agg: bending forwards, walking or standing for long periods of time (about 30 min), going shopping. Worst: 9/10. Eases: sitting Best: 0/10. Pain goes away instantly. Describes the pain as dull and achy. No N/T in LE. No change or loss of bowel or bladder. Sleep: not disturbed- side sleeper. She is not very active- No exercise routine. Did have a membership [employer] but she has not been here in a few years. She has a recumbent bike at home but she does not use it. No trauma events. X-ray and MRI both show OA. She has had 2 injections in her back- they don't last- last one was [address] Grullon wants her to do therapy and then come back for injections. PMHx/Meds: losartan, pravastatin only changes since saw Dr. Roland - Objective Posture: FH, RS- can correct but does not maintain. Gait: no deviation noted- good arm swing and trunk rotation. HR/TR: able with UE A. SLS: weight shift. Sensation: WNL. Reflex: WNL. ROM: WFL in all planes- stiffness with lumbar flexion. Strength: Core: fair minus, Hip: 4/5 throughout, Knee: 5/5 Ankle: 5/5. Flex: HS: moderate, Gastroc: moderate. Palpation: not tender to touch - Special Tests L/S Slump test left side: Negative L/S Slump test right side: Negative L/S Left Straight Leg Raise: Negative L/S Right Straight Leg Raise: Negative - Balance/Special Test Scores Oswestry Low Back Score: 11 - Goals Goal 1:: Patient will be I with HEP and progression Goal Time Frame: 4-6 Weeks Goal 2:: Patient will maintain proper posture t/o tx session to demo increased core s.s Goal Time Frame: 4-6 Weeks Goal 3:: Patient will report 80% improvement Goal Time Frame: 4-6 Weeks - Rehabilitation Potential Physical Therapy Diagnosis: Patient presents with hypomobility- she has decreased LE and core s/s leading to poor posture and increased pain with ADL's. Rehabilitation Potential: Good - Anticipated Interventions Patient/Client Instruction: Educate patient on: Benefits of Fitness Program Therapeutic Exercise to Include: Strength training, Endurance training, Balance training, Coordination, Agility training, Body mechanics, Postural training, Flexibilty training, Neuromotor development, Dynamic Lumbar Stabilization, Scapular Strength/Stabilization TENS: Yes Cryotherapy (ice pack, ice massage): Yes Thermo therapy (hot pack): Yes Ultrasound (thermal/non thermal): Yes Thank you for the opportunity to evaluate your patient. For Medicare and Medicare HMO plans, please review the plan of care and approve it. It will need to be FAXED BACK to us at [phone] for Medicare purposes. For Medicare only, by signing this I certify the plan of care. Please let me know if there are questions or concerns regarding this plan of care. Physician Signature: Date:
== END 2021-09-08 19:00 | disposition home or self-care (01) ==
LOC: PT 14:00
PROVIDERS: PCP Internal Medicine; Referring Provider Anesthesiology Pain Medicine; Visit Provider Anesthesiology Pain Medicine
DX: M54.9 Dorsalgia, unspecified (principal); M79.606 Pain in leg, unspecified
CPT/HCPCS: 97035; 97110; 97162

== ENCOUNTER 2023-01-23 16:15 | Emergency (ER) | payer MEDICARE, OTHER, SELFPAY ==
[2023-01-23 16:16] VITALS: BP 118/33; PULSE 63; RESP 18; TEMP 36.1; O2SAT 100; BMI 30.9
--- NOTE | 2023-01-23 16:30 | EKG12_ITS ---
Test Reason : weakness Blood Pressure : / mmHG Vent. Rate : 063 BPM Atrial Rate : 000 BPM P-R Int : 000 ms QRS Dur : 092 ms QT Int : 420 ms P-R-T Axes : 000 069 069 degrees QTc Int : 429 ms Normal sinus rhythm Abnormal ECG Confirmed by JADE LUCAS, DONYA ([id number]), energy analyst MICHELLE ARMENDRAIZ ([id number]) on 01/24/2023 10:52:46 AM Referred By: Confirmed By:DONYA HANSEN MD
--- NOTE | 2023-01-23 16:36 | RAD_ITS ---
INDICATION: weakness s/p covid EXAMINATION/TECHNIQUE: X-RAY - XR Chest 1 View COMPARISON: FINDINGS: LINES/DEVICES: None. LUNGS: No consolidation, edema or effusion. No pneumothorax. MEDIASTINUM AND CARDIOVASCULAR STRUCTURES: Cardiac silhouette not enlarged. Central airways and mediastinal contour are unremarkable. BONES AND SOFT TISSUES: Unremarkable. RAD/Chest 1 View (Portable) IMPRESSION: No radiographic evidence of acute cardiopulmonary disease. Electronically Signed: Molly Villareal MD at 17:53 EST Reading Location ID and State: [id number] / Tel , Service support ,
--- NOTE | 2023-01-23 17:20 | CT_ITS ---
STUDY: CT BRAIN WITHOUT CONTRAST REASON FOR EXAM: Female, 82 years old. Altered Mental Status RADIATION DOSAGE (If Supplied By Facility): CTDIvol = ( 44.99 ) mGy, DLP = ( 745.49 ) mGycm TECHNIQUE: Transaxial CT imaging of the brain was performed without administration of intravenous contrast material. Individualized dose optimization techniques were used for this CT. COMPARISON: MRI 05/26/2020. FINDINGS: Normal soft tissue structures. Normal calvarium. Normal size ventricles and extra-axial spaces for the patient''s age. Normal white matter tracts of the cerebral hemispheres. Normal basal ganglia and thalami. Normal brainstem. Normal cerebellum. There is no intracranial hemorrhage. There are no findings of an acute ischemic infarction. Normal visualized paranasal sinuses. CT/Brain/Head without Contrast IMPRESSION: Normal unenhanced CT scan of the brain. Electronically Signed: Molly Villareal MD at 18:54 EST Reading Location ID and State: [id number] / Tel , Service support ,
[2023-01-23 17:22] LABS: Absolute Lymphocyte Count 0.92 X10^3/uL (0.83-4.51); Absolute Neutrophil Count 7.8 X10^3/uL (2.0-7.7); Basophil# 0.05 X10^3/uL; Basophil% 0.5 % (0-1); Eosinophil# 0.12 X10^3/uL; Eosinophils% 1.2 % (0-5); Hematocrit 43.2 % (37-47); Lymphocyte # 0.92 X10^3/ul (0.83-4.51); Lymphocyte % 9.5 % (19-41); Mean Corp Hgb Conc 32.4 g/dL (32-36); Mean Corpuscular Hgb 32.2 pg (27.0-32.0); Mean Corpuscular Volume 99.3 fL (81-99); Mean Platelet Vol. 9.3 fl (6.2-12.0); Monocyte# 0.72 X10^3/uL; Monocyte% 7.5 % (0-10); NRBC Flagged by Analyzer 0 % (0-5); Neutrophil % 80.8 % (47-70); Platelet Count 262 K/mm3 (150-450); RBC Distribution Width CV 12.8 % (11.6-14.6); RBC Distribution Width SD 46.9 fl (35.1-43.9); Red Blood Count 4.35 M/mm3 (4.2-5.4); White Blood Count 9.7 K/mm3 (4.4-11.0)
[2023-01-23 17:23] LABS: Anion Gap 4 (5-15); BUN 39 mg/dL (7-18); BUN/Creat Ratio 27.7 RATIO (10-20); Calcium,Total 8.6 mg/dL (8.5-10.1); Chloride 106 mmol/L (98-107); Creatinine, Serum 1.41 mg/dL (0.55-1.02); EST Glomerular Filtration Rate 38 mL/min (>60); Est Glom Filt Rate - Afr Amer 46 mL/min (>60); Estimated Creatinine Clearance 25.65 ml/min; Glucose 171 mg/dL (74-106); Sodium Level 135 mmol/L (136-145)
[2023-01-23 17:24] LABS: Mucous, Urine 0 SEEN /hpf (<or=2+)
[2023-01-23 17:34] LABS: Color, Urine Yellow (Yellow); Glucose, Dipstick Normal (Normal); Ketone-Dipstick 5 mg/dl (Negative); Leukocyte Esterase-Dipstick 500 /ul (Negative); Nitrite-Dipstick Negative (Negative); Occult Blood-Urine 10 /ul (Negative); Protein-Dipstick 30 mg/dl (Negative); Specific Gravity, Urine 1.025 (1.002-1.030); Urine Clarity Sl. Cloudy (Clear); Urine Urobilinogen 1 mg/dl (Normal)
[2023-01-23 17:47] LABS: Urine Bilirubin Dipstick 1 mg/dL (Negative)
[2023-01-23 17:48] LABS: Red Blood Cells-Urine 0-5 SEEN /hpf (0-5); White Blood Cells 5-10 SEEN /hpf (0-5)
[2023-01-23 17:49] LABS: Hyaline Cast 10-25 SEEN /lpf (0-5); Squamous Epithelial Cells - UA 0-5 SEEN /hpf (5-10)
[2023-01-23 17:50] LABS: Bacteria 1+ /hpf (None Seen)
[2023-01-23] MEDS: 0.9% Normal Saline (1000mL) 1,000 ML 999 ML IV (17:51)
--- NOTE | 2023-01-23 17:53 | EX.ED.DYSGE1 ---
HPI <NUSRAT Harper - Last Filed: 01/23/23 19:47> History of Present Illness Chief Complaint: Weakness Narrative Narrative: Patient is an 82-year-old female with history of chronic back pain, hypertension who presents to the emergency department with weakness. Patient was diagnosed with COVID-19 January 12, 2023, patient states she did have a cough at that time. For the last 6 days, the patient states has been having ongoing weakness. Patient states he had several episodes of leg weakness when she felt like she could not carry herself. She feels full body weakness, she also states that she felt slightly confused whenever she was feeling his episodes. She is asymptomatic at this time, at rest she is asymptomatic. She denies any chest pain, shortness of breath. Denies any significant injury with falls. PFS <NUSRAT Harper - Last Filed: 01/23/23 19:47> [facility] Medical History (Updated 01/23/23 @ 22:[address] Robert Norman, DO) Anxiety and depression Diarrhea Diverticulosis Dysmetabolic syndrome X Epigastric pain Essential (primary) hypertension Hemorrhoids History of thyroid cancer Hyperlipidemia Hypothyroidism Obesity Paroxysmal supraventricular tachycardia Personal history of colonic polyps Premature ventricular contractions Home Medications alprazolam 0.25 mg tablet 0.125 mg PO BID PRN PRN Anxiety 11/18/16 [History Last Taken 10/23/17] cholecalciferol (vitamin D3) 50 mcg (2,000 unit) capsule 2,000 unit PO PETERSEN supplement 11/18/16 [History Last Taken 10/22/17] levothyroxine 100 mcg tablet 100 mcg PO DAILY thyroid 11/18/16 [History Last Taken 10/24/17] paroxetine HCl 20 mg tablet 20 mg PO DAILY depression 11/18/16 [History Last Taken 10/24/17] spironolactone 25 mg tablet 25 mg PO DAILY diuretic 11/18/16 [History Last Taken 01/29/19 06:00] Optive 1 drp BID dry eye 10/24/17 [History Last Taken 10/22/17] diltiazem HCl 120 mg capsule,extended release 24 hr 120 mg PO DAILY heart rate #90 caps 02/17/20 [Rx Last Taken Unknown] benzonatate 100 mg capsule 100 mg PO Q8H 01/23/23 [History Last Taken Unknown] losartan 25 mg tablet 25 mg PO DAILY 01/23/23 [History Last Taken Unknown] rosuvastatin 5 mg tablet 2.5 mg PO .4x/week 01/23/23 [History Last Taken Unknown] Allergy/AdvReac Type Severity Reaction Status Date / Time lisinopril Allergy cough Verified 01/23/23 16:16 quinapril [From Accupril] Allergy cough Verified 01/23/23 16:16 morphine AdvReac delirium Verified 01/23/23 16:16 naproxen [From Naprosyn] AdvReac Nausea Verified 01/23/23 16:16 rofecoxib [From Vioxx] AdvReac Nausea Verified 01/23/23 16:16 Sulfa (Sulfonamide AdvReac Nausea Verified 01/23/23 16:16 Antibiotics) Family History Mother Hypertension Diabetes Arthritis Father Arthritis Seizures Sister Arthritis Surgical History Hx of appendectomy Hx of arthroscopic knee surgery Hx of carpal tunnel repair Hx of cataract extraction Hx of cholecystectomy Hx of colonoscopy Hx of foot surgery Hx of hysterectomy Hx of thyroidectomy Social History Smoking Status: Never smoker second hand exposure: No alcohol intake: current alcohol intake frequency: a few times a week Alcohol type: wine substance use type: does not use caffeine: Yes frequency: does not exercise ROS <NUSRAT Harper - Last Filed: 01/23/23 19:47> ROS ED ROS Narrative Constitutional: Negative for fever, chills, weight loss. Positive for weakness Eyes: Negative for vision loss, vision change, double vision ENT: Negative for any sore throat, ear pain, congestion Cardiovascular: Negative for any chest pain, tightness, palpitations Respiratory: Negative for any cough, sputum production, hemoptysis, dyspnea, dyspnea on exertion, orthopnea Gastrointestinal: Negative for any abdominal pain, nausea, vomiting, diarrhea, constipation, blood in stool, blood in vomit : Negative for any urinary frequency, dysuria, retention, blood in urine Muscle skeletal: Negative for any myalgias, arthralgias, neck pain. Positive for acute on chronic back pain Neurological: Negative for any headache, syncope, numbness or tingling, dizziness Skin: Negative for any rashes, lumps, itching, abrasions, lacerations Psychiatric: Negative for any depression, anxiety, stress, suicidal ideation, homicidal ideation Hematologic: Negative for any easy bruising, excessive bruising, easy bleeding Allergies: Negative for any eczema, hives, rash EXAM <NUSRAT Harper - Last Filed: 01/23/23 19:47> Physical Exam Narrative Exam Narrative: Vital signs reviewed. HEET: Head normocephalic atraumatic, TMs clear bilaterally. Posterior pharynx is clear, dry mucous membranes. Nares clear bilaterally. Neck: Supple with no lymphadenopathy or tenderness. No signs of meningismus. Cardiac: Regular rate and rhythm no murmurs gallops or rubs, equal peripheral pulses bilaterally. Respiratory: Lungs clear to auscultation bilaterally. No chest tenderness. Abdomen: Soft, nontender, nondistended. No abdominal bruit or pulsatile masses. No hepatosplenomegaly Extremities: No peripheral edema, no signs of gross trauma or deformity. Active full range of motion of all extremities. Neuro: Cranial nerves II through XII intact, no focal neurological deficits. Skin: Clean dry and intact with no rash, purpura, petechiae, vesicles or pustules. Backs/flank: No CVA tenderness, no midline spinal tenderness, no deformity. Psych: Normal mood and affect. No SI, HI or acute psychosis. Const Vital Signs: 01/23/23 16:16 01/23/23 16:15 01/23/23 19:52 Temperature 96.9 F L Temperature Source Temporal Pulse Rate 63 60 Respiratory Rate 18 Respiratory Pattern Normal Blood Pressure 118/33 L 120/70 Blood Pressure Mean 61 86 Pulse Ox 100 100 Oxygen Delivery Method Room Air Positive well nourished and well developed General Appearance ED: well developed <Dr. Robert Norman DO - Last Filed: 01/23/23 22:46> Physical Exam Const Vital Signs: 01/23/23 16:16 01/23/23 16:15 01/23/23 19:52 Temperature 96.9 F L Temperature Source Temporal Pulse Rate 63 60 Respiratory Rate 18 Respiratory Pattern Normal Blood Pressure 118/33 L 120/70 Blood Pressure Mean 61 86 Pulse Ox 100 100 Oxygen Delivery Method Room Air MDM <NUSRAT Harper - Last Filed: 01/23/23 19:47> MDM Lab Data Labs: Laboratory Results - last 24 hr 01/23/23 01/23/23 16:58 17:20 WBC 9.7 RBC 4.35 Hgb 14.0 Hct 43.2 MCV 99.3 H MCH 32.2 H MCHC 32.4 RDW Std Deviation 46.9 H RDW Coeff of Jackie 12.8 Plt Count 262 MPV 9.3 Immature Gran % (Auto) 0.500 Neut % (Auto) 80.8 H Lymph % (Auto) 9.5 L [place] % (Auto) 7.5 Eos % (Auto) 1.2 Baso % (Auto) 0.5 Absolute Neuts (auto) 7.8 H Absolute Lymphs (auto) 0.92 Nucleated RBC % 0 Sodium 135 L Potassium 4.0 Chloride 106 Carbon Dioxide 25.0 Anion Gap 4 L BUN 39 H Creatinine 1.41 H Estim Creat Clear Calc 25.65 Est GFR (MDRD) Af Amer 46 L Est GFR (MDRD) Non-Af 38 L BUN/Creatinine Ratio 27.7 H Glucose 171 H Calcium 8.6 Urine Color Yellow Urine Clarity Sl. Cloudy Urine pH 5.0 Ur Specific [place] 1.025 Urine Protein 30 H Urine Glucose (UA) Normal Urine Ketones 5 H Urine Occult Blood 10 H Urine Nitrite Negative Urine Bilirubin 1 H Urine Urobilinogen 1 H Ur Leukocyte Esterase 500 H Urine RBC 0-5 SEEN Urine WBC 5-10 SEEN Ur Squamous Epith Cells 0-5 SEEN Urine Bacteria 1+ Hyaline Casts 10-25 SEEN Urine Mucus 0 SEEN Radiography Diagnostic Testing: Clinical Impression(s) from Imaging Studies Chest X-Ray 01/23/23 16:36 IMPRESSION: No radiographic evidence of acute cardiopulmonary disease. Electronically Signed: Molly Villareal MD at 17:53 EST Reading Location ID and State: Mahin Bloom MD Tel , Service support , Brain CT 01/23/23 17:20 IMPRESSION: Normal unenhanced CT scan of the brain. Electronically Signed: Molly Villareal MD at 18:54 EST Reading Location ID and State: Mahin Bloom MD Tel , Service support , Treatment and Re-Evaluation :: Patient is in no obvious distress, vital signs are stable, patient looks nontoxic. Presenting to the emergency department for 6 days of worsening weakness. Patient multiple episodes of not being able to hold herself up with her legs, as well as feeling slightly altered. Differential diagnosis includes dehydration, TIA/CVA, infectious process. Patient will receive laboratory values. Patient's CBC was unremarkable, patient's chemistries showed a slight bump in the creatinine at 1.41, GFR 46 with a BUN of 39. This is slightly elevated, patient is usually around 0.9?1.0. Patient will be given 1 L of normal saline. Patient's chest x-ray was grossly unremarked for any acute process. EKG was unremarkable. Urinalysis did show 1+ bacteria negative nitrates, 500 leukocyte esterase, this will be sent for culture, CT scan of the brain was obtained. Concerning for any acute or cranial pathology. At this time, patient was ambulated, patient did well ambulating, felt strong, she not use a walker, patient is stable for discharge. Spoke with the patient, the patient's daughter, they feel comfortable taking her home, they will follow with the PCP. They will return here for any worsening symptoms all questions answered, stable for discharge. <Dr. Robert Norman, DO - Last Filed: 01/23/23 22:46> [facility] Lab Data Attestation: I reviewed the patient's lab results. Labs: Laboratory Results - last 24 hr 01/23/23 01/23/23 16:58 17:20 WBC 9.7 RBC 4.35 Hgb 14.0 Hct 43.2 MCV 99.3 H MCH 32.2 H MCHC 32.4 RDW Std Deviation 46.9 H RDW Coeff of Jackie 12.8 Plt Count 262 MPV 9.3 Immature Gran % (Auto) 0.500 Neut % (Auto) 80.8 H Lymph % (Auto) 9.5 L [place] % (Auto) 7.5 Eos % (Auto) 1.2 Baso % (Auto) 0.5 Absolute Neuts (auto) 7.8 H Absolute Lymphs (auto) 0.92 Nucleated RBC % 0 Sodium 135 L Potassium 4.0 Chloride 106 Carbon Dioxide 25.0 Anion Gap 4 L BUN 39 H Creatinine 1.41 H Estim Creat Clear Calc 25.65 Est GFR (MDRD) Af Amer 46 L Est GFR (MDRD) Non-Af 38 L BUN/Creatinine Ratio 27.7 H Glucose 171 H Calcium 8.6 Urine Color Yellow Urine Clarity Sl. Cloudy Urine pH 5.0 Ur Specific [place] 1.025 Urine Protein 30 H Urine Glucose (UA) Normal Urine Ketones 5 H Urine Occult Blood 10 H Urine Nitrite Negative Urine Bilirubin 1 H Urine Urobilinogen 1 H Ur Leukocyte Esterase 500 H Urine RBC 0-5 SEEN Urine WBC 5-10 SEEN Ur Squamous Epith Cells 0-5 SEEN Urine Bacteria 1+ Hyaline Casts 10-25 SEEN Urine Mucus 0 SEEN Radiography Diagnostic Testing: Clinical Impression(s) from Imaging Studies Chest X-Ray 01/23/23 16:36 IMPRESSION: No radiographic evidence of acute cardiopulmonary disease. Electronically Signed: Molly Villareal MD at 17:53 EST Reading Location ID and State: Mahin Bloom MD Tel , Service support , Brain CT 01/23/23 17:20 IMPRESSION: Normal unenhanced CT scan of the brain. Electronically Signed: Molly Villareal MD at 18:54 EST Reading Location ID and State: Mahin Bloom MD Tel , Service support , Treatment and Re-Evaluation :: Patient is in no obvious distress, vital signs are stable, patient looks nontoxic. Presenting to the emergency department for 6 days of worsening weakness. Patient multiple episodes of not being able to hold herself up with her legs, as well as feeling slightly altered. Differential diagnosis includes dehydration, TIA/CVA, infectious process. Patient will receive laboratory values. Patient's CBC was unremarkable, patient's chemistries showed a slight bump in the creatinine at 1.41, GFR 46 with a BUN of 39. This is slightly elevated, patient is usually around 0.9?1.0. Patient will be given 1 L of normal saline. Patient's chest x-ray was grossly unremarked for any acute process. EKG was unremarkable. Urinalysis did show 1+ bacteria negative nitrates, 500 leukocyte esterase, this will be sent for culture, CT scan of the brain was obtained. Concerning for any acute or cranial pathology. At this time, patient was ambulated, patient did well ambulating, felt strong, she not use a walker, patient is stable for discharge. Spoke with the patient, the patient's daughter, they feel comfortable taking her home, they will follow with the PCP. They will return here for any worsening symptoms all questions answered, stable for discharge. Attending note: Patient seen and evaluated with cable puller. I perform my own [id number] evaluation. I agree with the plan of work-up. COVID infection 11 days ago with a cough. States mild cough lingering however not significant. Increasing weakness in the legs gave out a few days ago causing her to go down. No significant injuries. States intermittent confusion but none currently. Denies urinary symptoms. Denies fevers. Exam nontoxic vital signs stable. There is no focal neurological deficits. Alert and orient x 3. Workup labs with renal insufficiency creatinine 1.4 she was given IV fluids. CT brain negative. Chest x-ray interpreted myself and read by radiology shows no acute process. Urine noted some bacteria and leukocytes however she is asymptomatic urine culture sent. Will not treat unless culture is positive. She was ambulated without any assistive no difficulties. Was discharged outpatient follow-up with her PCP. Discharge Plan Triage Chief Complaint: Weakness ED Midlevel Provider: Singh Geiger ED Provider: Robert Norman Dx/Rx/DC Orders Clinical Impression: Weakness, Fall, Bacteriuria, asymptomatic, Acute renal insufficiency Instructions: ED Weakness (Uncertain Cause) Prescriptions: No Action spironolactone 25 MG tablet 25 mg PO DAILY levothyroxine 100 MCG tablet 100 mcg PO DAILY paroxetine HCl 20 MG tablet 20 mg PO DAILY cholecalciferol (vitamin D3) 2,000 UNIT capsule 2,000 unit PO PETERSEN alprazolam 0.25 MG tablet 0.125 mg PO BID PRN PRN (Reason: Anxiety) Optive 1 drp Each Eye BID benzonatate 100 mg capsule 100 mg PO Q8H Patient Comments: take 2 capsules by mouth three times a day if needed for cough losartan 25 mg tablet 25 mg PO DAILY rosuvastatin 5 mg tablet 2.5 mg PO .4x/week diltiazem HCl 120 mg capsule,extended release 24hr 120 mg PO DAILY Qty: 90 3RF Primary Care Provider: Ly Ledbetter Referrals: Ly Ledbetter MD [Primary Care Provider] - Activity Restrictions/Additional Instructions: Please follow-up outpatient. Ensure that you maintain hydration return for any worsening symptoms. Disposition Disposition: Home, Self Care Discharge Date/Time: 01/23/23 19:56
[2023-01-23 19:11] VITALS: O2SAT 93
[2023-01-23 19:52] VITALS: BP 120/70; PULSE 60; O2SAT 100
== END 2023-01-23 19:56 | disposition home or self-care (01) ==
PROVIDERS: Emergency Medicine; Emergency Provider Emergency Medicine; PCP Internal Medicine; Visit Provider Emergency Medicine
DX: R53.1 Weakness (principal); M54.9 Dorsalgia, unspecified; N28.9 Disorder of kidney and ureter, unspecified; I10 Essential (primary) hypertension; R82.71 Bacteriuria; E78.5 Hyperlipidemia, unspecified; G89.29 Other chronic pain; Z79.899 Other long term (current) drug therapy; W19.XXXA Unspecified fall, initial encounter
CPT/HCPCS: 70450; 71045; 80048; 81001; 85025; 87086; 87088; 93005; 96360; 96361; 99283; J7030

== ENCOUNTER 2023-03-06 20:50 | Emergency (ER) | payer MEDICARE, OTHER, SELFPAY ==
[2023-03-06 20:51] VITALS: BP 142/67; PULSE 68; RESP 18; TEMP 35.5; O2SAT 98
--- NOTE | 2023-03-06 21:24 | CT_ITS ---
INDICATION: trauma EXAMINATION: CT BRAIN - CT Head or Brain W/O Contrast Injection TECHNIQUE: Serial CT axial images were obtained of the head without intravenous contrast. A radiation dose optimization technique was used for this scan. COMPARISON: 01/23/[address] Findings: Serial CT axial images of the head without contrast. BRAIN PARENCHYMA: Diffuse periventricular hypoattenuation likely chronic white matter ischemic changes. Moderate diffuse volume loss. No evidence of intraparenchymal hemorrhage or hyperattenuating extra-axial fluid collection. VASCULAR STRUCTURES: Atherosclerotic vascular calcifications. BONES: Pansinus mucosal thickening with scattered air-fluid levels and retention cysts. SCALP/REMAINING SOFT TISSUES: Bilateral drusen. ASPECTS Score for Acute Strokes, if applicable: 10 CT/Brain/Head without Contrast IMPRESSION: Age-related changes as above, without evidence of acute intracranial hemorrhage in this noncontrast head CT. Pansinus disease. Electronically Signed: Jamison White MD at 22:50 EST ,
--- NOTE | 2023-03-06 21:24 | CT_ITS ---
INDICATION: trauma EXAMINATION/TECHNIQUE: X-RAY - CT Maxillofacial W/O Contrast Injection A radiation dose optimization technique was used for this scan. COMPARISON: Head CT same day. Findings: Noncontrast serial CT axial images of the facial bones without reformatted series provided. OSSEOUS STRUCTURES: No facial fracture. No TMJ subluxation. Pansinus mucosal thickening with scattered air-fluid levels and retention cysts. Neuroforaminal narrowing and central bony spinal canal stenosis better described on cervical spine CT same day. ORBITS: No obvious acute globe abnormality. No infiltration the orbital fat. REMAINING SOFT TISSUES: Thyroidectomy with surgical clips in the thyroidectomy bed. CT/Sinus/Facial Bone IMPRESSION: No facial fracture. Pansinus disease. Electronically Signed: Jamison White MD at 23:12 EST ,
--- NOTE | 2023-03-06 21:24 | CT_ITS ---
INDICATION: trauma EXAMINATION: CT SPINE - CT Spine Cervical W/O Contrast Injection COMPARISON: None. A radiation dose optimization technique was used for this scan. Findings: Serial CT axial images through the cervical spine, with coronal and sagittal reformatted series. BONES: No evidence of cervical spine fracture or subluxation. No concerning bony lesion or abnormal sclerosis to suggest lesion. DISCS/JOINTS: Moderate to severe multilevel bilateral neuroforaminal narrowing. There is also at least moderate central bony spinal canal stenosis at the C4-C5 and C5-C6 levels. SOFT TISSUES: Thyroidectomy with surgical clips in surgical bed. CT/Spine Cervical without Contras IMPRESSION: Cervical spine without evidence of acute fracture. Neuroforaminal narrowing and central bony spinal canal stenosis. Electronically Signed: Jamison White MD at 22:57 EST ,
--- NOTE | 2023-03-06 21:27 | EDS_ITS ---
HPI History of Present Illness Chief Complaint: Fall Informant: patient and family Narrative Narrative: 82-year-old female presenting to the emergency room following a fall. Patient states that tonight she was hurrying to the bathroom and she tripped over a rug. She states that she face planted into the ground resulting in a bloody nose. She states that her arms were up against her chest. She states that after she fell she could not move her bilateral arms for period of time. She states that they are burning and now she states that the bilateral thumbs hurt and she is unable to really move them. Now she is currently denying any headache. She notes that she has some discomfort in her neck but mostly in the trapezius region. She denies any facial pain. There is an abrasion to the bridge of her nose. She denies any restricted painful movements at the shoulder or elbow or wrist joints. She is able to hold her fingers in extension with the exception of her thumbs. She reports tenderness along the bilateral thumbs. Family states that she is being worked up for adrenal insufficiency and supposed to have blood work done (cortisol level and CMP) tomorrow. She had COVID around gi and has had 4 rounds of steroids. She has had near syncopal/syncopal episodes since then. She states that this was not 1 of those episodes she does notes a continued cough and is worried about pneumonia [facility] Medical History (Updated 03/07/23 @ 00:[address] Evaristo Valdes, ) Anxiety and depression Diarrhea Diverticulosis Dysmetabolic syndrome X Epigastric pain Essential (primary) hypertension Hemorrhoids History of thyroid cancer Hyperlipidemia Hypothyroidism Obesity Paroxysmal supraventricular tachycardia Personal history of colonic polyps Premature ventricular contractions Home Medications alprazolam 0.25 mg tablet 0.125 mg PO BID PRN PRN Anxiety 11/18/16 [History Last Taken 10/23/17] cholecalciferol (vitamin D3) 50 mcg (2,000 unit) capsule 2,000 unit PO PETERSEN supplement 11/18/16 [History Last Taken 10/22/17] levothyroxine 100 mcg tablet 100 mcg PO DAILY thyroid 11/18/16 [History Last Taken 10/24/17] paroxetine HCl 20 mg tablet 20 mg PO DAILY depression 11/18/16 [History Last Taken 10/24/17] spironolactone 25 mg tablet 25 mg PO DAILY diuretic 11/18/16 [History Last Taken 01/29/19 06:00] Optive 1 drp BID dry eye 10/24/17 [History Last Taken 10/22/17] diltiazem HCl 120 mg capsule,extended release 24 hr 120 mg PO DAILY heart rate #90 caps 02/17/20 [Rx Last Taken Unknown] benzonatate 100 mg capsule 100 mg PO Q8H 01/23/23 [History Last Taken Unknown] losartan 25 mg tablet 25 mg PO DAILY 01/23/23 [History Last Taken Unknown] rosuvastatin 5 mg tablet 2.5 mg PO .4x/week 01/23/23 [History Last Taken Unknown] oxycodone-acetaminophen 5 mg-325 mg tablet 1 tab PO Q6H PRN PRN Pain 3 days #12 TABLETS 03/07/23 [Rx Last Taken Unknown] Allergy/AdvReac Type Severity Reaction Status Date / Time lisinopril Allergy cough Verified 01/23/23 16:16 quinapril [From Accupril] Allergy cough Verified 01/23/23 16:16 morphine AdvReac delirium Verified 01/23/23 16:16 naproxen [From Naprosyn] AdvReac Nausea Verified 01/23/23 16:16 rofecoxib [From Vioxx] AdvReac Nausea Verified 01/23/23 16:16 Sulfa (Sulfonamide AdvReac Nausea Verified 01/23/23 16:16 Antibiotics) Family History Mother Hypertension Diabetes Arthritis Father Arthritis Seizures Sister Arthritis Surgical History Hx of appendectomy Hx of arthroscopic knee surgery Hx of carpal tunnel repair Hx of cataract extraction Hx of cholecystectomy Hx of colonoscopy Hx of foot surgery Hx of hysterectomy Hx of thyroidectomy Social History Smoking Status: Never smoker second hand exposure: No alcohol intake: current alcohol intake frequency: a few times a week Alcohol type: wine substance use type: does not use caffeine: Yes frequency: does not exercise ROS ROS ED Constitutional Constitutional ED: Denies chills, fever(s) or weight loss Eyes Eyes: Denies change in vision or diplopia ENT ENT ED: Denies ear pain, rhinorrhea or sore throat Cardiovascular Cardiovascular: Reports other Details: Near syncope/syncope episodes ; Denies chest pain, orthopnea, palpitations or racing heartbeat Respiratory/Chest Respiratory/Chest: Denies cough, dyspnea or orthopnea Gastrointestinal Gastrointestinal: Denies abdominal pain, diarrhea, nausea or vomiting Genitourinary Genitourinary ED: Denies dysuria, hematuria or urinary frequency Musculoskeletal Musculoskeletal: Denies arthralgias or myalgias Integumentary Denies abscess or rash Neurologic Neurologic: Reports paresthesias and weakness; Denies headache(s) Psychiatric Psychiatric: Denies anxiety, depression, suicidal ideation or suicidal thoughts Endocrine Endocrinology: Denies polydipsia, polyphagia or polyuria Allergic/Immunologic Allergic/Immunologic ED: Denies mouth swelling, tongue swelling or urticaria EXAM Physical Exam Const Vital Signs: 03/06/23 20:51 03/06/23 21:28 Temperature 96 F L Temperature Source Temporal Pulse Rate 68 Respiratory Rate 18 Respiratory Effort Normal Respiratory Depth Normal Respiratory Pattern Normal Blood Pressure 142/67 H Blood Pressure Mean 92 Pulse Ox 98 Oxygen Delivery Method Room Air Room Air Positive well nourished, well developed and obese General Appearance ED: well developed Nutritional Appearance: obese HEENT Reports normocephalic, TM's clear and moist mucous membranes HEENT Narrative: Superficial abrasion to the bridge of the nose. No septal hematoma. No midface oral trauma noted or instability. No dental trauma. Nose: Negative for septum abnormal Tympanic Membrane ED: Yes TM's clear Eyes PERRL and EOMs intact bilaterally Neck full ROM, no lymphadenopathy, supple and no JVD Neck Narrative: Tender to palpation in the bilateral trapezius region Resp normal respiratory effort and clear to auscultation bilaterally Cardio regular rate, regular rhythm and no murmurs GI normal to inspection, nondistended, normoactive bowel sounds and non-tender Palpation: soft Back/Spine no CVA tenderness and normal ROM Extremity Extremity Narrative: Patient can easily move the shoulder elbow and wrist joints. She is able to extend index long ring and little fingers. She is not able to give me a thumbs up bilaterally. She is able to flex them. She notes tenderness along the first metacarpals. Neurovascular appears intact General Extremety ED: Negative for edema General Extremity: Negative for edema Neuro oriented x3 and CN's II-XII intact bilaterally Sensorium / Orientation: alert Motor Exam: strength 5/5 throughout Psych mental status grossly normal Mood & Affect: depressed, anxious and tearful Skin no rashes or lesions noted MDM MDM MDM Narrative Medical decision making narrative: CT of the brain and facial bones and cervical spine were negative for hemorrhage fracture or obvious acute injury. My independent interpretation of the chest x- ray is no acute consolidation pleural effusion or overt failure. My independent interpretation of the plain films of the bilateral hands is CMC arthritis no acute fracture. Patient received Tylenol and oxycodone for pain. Her description of this burning pain in her thumbs is variable. Now it is only involving the DIP P joint along the dorsum up onto the forearm approximately 2 inches below the elbow joint. The distal tip is not involved. It does not burn on the volar aspect. It is bilateral. Does not involve index or ring finger. Difficult to say exactly what this was. In the setting of trauma where she hit her face and the fact that she stated initially that she could move her bilateral arms but now she stating that she could not move her entire body I do not know if it is a neuropraxia. I do suspect that conservative treatment is most likely going to resolve the issue. We can try a thumb spica splints but she is not sure she can tolerate the touching of her skin. Patient has an appointment to see her doctor tomorrow. She is supposed to have a cortisol level drawn between 6 and 9. It is almost 0100 in the morning. The patient does not believe she is going to be able to sleep tonight. I advised her she may not wish to have her cortisol level drawn if she is not going to get any sleep I advised her to go ahead and keep her appointment with primary care tomorrow. History & Record Review Discussion w/independent historian: Patient and Family Radiography Diagnostic Testing: Clinical Impression(s) from Imaging Studies Brain CT 03/06/23 21:24 IMPRESSION: Age-related changes as above, without evidence of acute intracranial hemorrhage in this noncontrast head CT. Pansinus disease. Electronically Signed: Jamison White MD at 22:50 EST , Cervical Spine CT 03/06/23 21:24 IMPRESSION: Cervical spine without evidence of acute fracture. Neuroforaminal narrowing and central bony spinal canal stenosis. Electronically Signed: Jamison White MD at 22:57 EST , Facial/Sinus 03/06/23 21:24 IMPRESSION: No facial fracture. Pansinus disease. Electronically Signed: Jamison White MD at 23:12 EST , Chest X-Ray 03/06/23 21:55 IMPRESSION: Minimal bibasilar atelectasis versus scarring. No significant acute focal airspace disease. Electronically Signed: Jamison White MD at 23:41 EST , Hand X-Ray 03/06/23 21:55 IMPRESSION: Proximal phalanx of the left ring finger suboptimally visualized secondary to ring left in place. Severe left hand degenerative change without acute osseous abnormality. Electronically Signed: Jamison White MD at 23:45 EST , Hand X-Ray 03/06/23 21:55 IMPRESSION: Severe right hand degenerative change without acute osseous abnormality. Electronically Signed: Jamison White MD at 23:34 EST , Discharge Plan Triage Chief Complaint: Fall ED Provider: Evaristo Valdes Dx/Rx/DC Orders Clinical Impression: Arthritis of carpometacarpal (CMC) joint of both thumbs, Paresthesia and pain of both upper extremities, Acute cervical myofascial strain, Head injury, Contusion of nose, Fall Prescriptions: New oxycodone-acetaminophen [oxycodone-acetaminophen] 5-325 mg tablet 1 tab PO Q6H PRN PRN (Reason: Pain) 3 Days Qty: 12 0RF No Action spironolactone 25 MG tablet 25 mg PO DAILY levothyroxine 100 MCG tablet 100 mcg PO DAILY paroxetine HCl 20 MG tablet 20 mg PO DAILY cholecalciferol (vitamin D3) 2,000 UNIT capsule 2,000 unit PO PETERSEN alprazolam 0.25 MG tablet 0.125 mg PO BID PRN PRN (Reason: Anxiety) Optive 1 drp Each Eye BID benzonatate 100 mg capsule 100 mg PO Q8H Patient Comments: take 2 capsules by mouth three times a day if needed for cough losartan 25 mg tablet 25 mg PO DAILY rosuvastatin 5 mg tablet 2.5 mg PO .4x/week diltiazem HCl 120 mg capsule,extended release 24hr 120 mg PO DAILY Qty: 90 3RF Primary Care Provider: Ly Ledbetter Referrals: Ly Ledbetter MD [Primary Care Provider] - [facility] appointment Disposition Disposition: Home, Self Care
[2023-03-06 21:28] VITALS: BMI 31.0
--- OUTSIDE RECORDS SUMMARY | 2023-03-06 21:38 | XMS RPT_ITS | CCD ---
Author Name Unknown Address [address] [place] [address] Organization [facility] Care Team Providers [employer] Name Role Phone BRAYAN MATTHEW Unavailable Unavailable [facility] Unavailable Unavailable TALAMPAS, PHILIPPE Unavailable Unavailable BRAYAN MATTHEW Unavailable Unavailable BRAYAN MATTHEW Unavailable Unavailable TALAMPAS, PHILIPPE Unavailable Unavailable BRAYAN MATTHEW Unavailable Unavailable Philippe Ledbetter MD Primary Care Provider Philippe Ledbetter MD Primary Care Provider Philippe Ledbetter MD Primary Care Provider Philippe Ledbetter MD Primary Care Provider Philippe Ledbetter MD Primary Care Provider TALAMPLIZA PHILIPPE D Primary Care Unavailable TALAMPAS, PHILIPPE D Attending Unavailable TALAMPAS, PHILIPPE D Primary Care Unavailable CARDONA, COLLEEN Attending Unavailable TALAMPAS, PHILIPPE D Primary Care Unavailable TALAMPAS, PHILIPPE D Referring Unavailable TALAMPAS, PHILIPPE D Primary Care Unavailable TALAMPAS, PHILIPPE D Primary Care Unavailable TALAMPAS, PHILIPPE D Attending Unavailable TALAMPAS, PHILIPPE D Primary Care Unavailable TALAMPAS, PHILIPPE D Primary Care Unavailable CARDONA, COLLEEN Referring Unavailable O'GIL, SELMA Attending Unavailable TALAMPAS, PHILIPPE D Primary Care Unavailable O'GIL, SELMA Attending Unavailable O'GIL, SELMA Referring Unavailable TALAMPAS, PHILIPPE D Primary Care Unavailable O'GIL, SELMA Attending Unavailable O'GIL, SELMA Referring Unavailable TALAMPAS, PHILIPPE D Primary Care Unavailable O'GIL, SELMA Attending Unavailable O'GIL, SELMA Referring Unavailable DAVID CANTU Attending Unavailable DAVID CANTU Referring Unavailable TALAMPAS, PHILIPPE D Primary Care Unavailable TALAMPAS, PHILIPPE D Primary Care Unavailable TALAMPAS, PHILIPPE D Referring Unavailable CARDONA, COLLEEN Referring Unavailable TALAMPAS, PHILIPPE D Primary Care Unavailable TALAMPAS, PHILIPPE D Primary Care Unavailable TALAMPAS, PHILIPPE D Referring Unavailable TALAMPAS, PHILIPPE D Primary Care Unavailable ROLANDO, COLLEEN Attending Unavailable DAVID CANTU Attending Unavailable DAVID CANTU Referring Unavailable TALAMPAS, PHILIPPE D Primary Care Unavailable TALAMPAS, PHILIPPE D Primary Care Unavailable Allergies Allergy Classification Reported Allergen(s) Allergy Type Date of Onset Reaction(s) Facility (20 sources) lisinopril; Translations: [LISINOPRIL] Drug Allergy 8 Cough [facility] Repository (20 sources) morphine; Translations: [MORPHINE] Drug Allergy 5 Mental Status Change [facility] Repository (20 sources) naproxen; Translations: [NAPROXEN] Drug Allergy 5 Other: See Comments, GI Upset [facility] Repository (20 sources) quinapril; Translations: [QUINAPRIL] Drug Allergy 9 Cough [facility] Repository (20 sources) rofecoxib; Translations: [ROFECOXIB] Drug Allergy 5 GI Upset [facility] Repository (20 sources) Sulfonamides (Antibiotic); Translations: [SULFA (SULFONAMIDE ANTIBIOTICS)] Propensity to adverse reactions (disorder) 5 Other: See Comments [facility] Repository (20 sources) rosuvastatin; Translations: [ROSUVASTATIN] Drug Allergy 2 Myalgia [facility] Work Phone: Medications Current Medications Medication Drug Class(es) Dates Sig (Normalized) Sig (Original) mupirocin 0.02 mg/mg topical ointment (2 sources) RNA Synthetase Inhibitor Antibacterial Start: 09-04-2021 End: 09-14-2021 mupirocin (BACTROBAN) 2 % ointment Indications: Skin infection Apply to affected area three times daily for 10 days. 22 g 0 09/04/2021 09/14/2021 Active Completed/Discontinued Medications Medication Drug Class(es) Dates Sig (Normalized) Sig (Original) ALPRAZolam 0.25 mg oral tablet (20 sources) Benzodiazepine Start: 12-15-2020 End: 08-08-2022 take 1 tablet by mouth once daily as needed ALPRAZolam (XANAX) 0.25 mg tablet Indications: Anxiety and depression Take 1 tablet by mouth once daily as needed for up to 90 days. 10 tablet 0 05/10/2022 Active Problems Active Problems Problem Classification Problem Date Documented Da te Episodic/Chronic Anxiety disorders (20 sources) Mixed anxiety and depressive disorder; Translations: [Anxiety disorder, unspecified] Onset: 2 05-16-2021 Chronic Cardiac dysrhythmias (20 sources) Supraventricular tachycardia; Translations: [Supraventricular tachycardia] Onset: 8 11-09-2017 Chronic Chronic kidney disease (20 sources) Chronic kidney disease stage 3A ; Translations: [Stage 3a chronic kidney disease] Onset: 2 05-16-2021 Chronic Chronic kidney disease (1 source) Chronic kidney disease; Translations: [Stage 3a chronic kidney disease (HCC)] Onset: 2 Chronic obstructive pulmonary disease and bronchiectasis (1 source) Bronchitis, not specified as acute or chronic; Translations: [Sinobronchitis] Onset: 3 Episodic Complications of surgical procedures or medical care (20 sources) Postablative hypothyroidism; Translations: [Postprocedural hypothyroidism] Onset: 9 03-31-2015 Chronic Disorders of lipid metabolism (20 sources) Mixed hyperlipidemia; Translations: [Mixed hyperlipidemia] Onset: 8 03-31-2015 Chronic Diverticulosis and diverticulitis (20 sources) Diverticulosis of colon; Translations: [Diverticulosis of large intestine without perforation or abscess without bleeding] 11-25-2004 Chronic Essential hypertension (20 sources) Essential hypertension; Translations: [Essential (primary) hypertension] Onset: 6 03-31-2015 Chronic Fracture of upper limb (1 source) Closed fracture thumb distal phalanx ; Translations: [Nondisplaced fracture of distal phalanx of left thumb, initial encounter for closed fracture] Episodic Genitourinary symptoms and ill-defined conditions (2 sources) Genuine stress incontinence; Translations: [Stress incontinence (female) (male)] Onset: 3 Chronic Heart valve disorders (6 sources) Rheumatic mitral valve disease, unspecified; Translations: [Mitral valve disorders] 11-25-2004 Chronic Hemorrhoids (20 sources) Hemorrhoids; Translations: [Unspecified hemorrhoids] Onset: 8 11-25-2004 Episodic Immunizations and screening for infectious disease (1 source) Requires a tetanus booster; Translations: [Encounter for immunization] Episodic Malaise and fatigue (1 source) Weakness; Translations: [Weakness] Onset: 3 Episodic Mood disorders (20 sources) Dysthymia; Translations: [Dysthymic disorder] 11-25-2004 Chronic Nutritional deficiencies (20 sources) Vitamin D deficiency; Translations: [Vitamin D deficiency, unspecified] Onset: 0 03-11-2009 Chronic Osteoarthritis (20 sources) Degenerative joint disease involving multiple joints; Translations: [Polyosteoarthritis, unspecified] 11-25-2004 Chronic Other and unspecified benign neoplasm (20 sources) History of polyp of colon; Translations: [Personal history of colonic polyps] 11-25-2004 Episodic Other connective tissue disease (1 source) Other symptoms and signs involving the musculoskeletal system; Translations: [Weakness of both lower extremities] Onset: 3 Episodic Other gastrointestinal disorders (1 source) Loose stool; Translations: [Other fecal abnormalities] Episodic Other gastrointestinal disorders (1 source) Constipation alternates with diarrhea; Translations: [Other specified symptoms and signs involving the digestive system and abdomen] 11-07-2022 Episodic Other hematologic conditions (1 source) Macrocytosis - no anemia; Translations: [Other specified diseases of blood and blood-forming organs] Chronic Other nervous system disorders (20 sources) Carpal tunnel syndrome of right wrist; Translations: [Carpal tunnel syndrome, right upper limb] Onset: 6 09-07-2015 Chronic Other nervous system disorders (1 source) Other chronic pain; Translations: [Chronic bilateral low back pain with bilateral sciatica] Onset: 3 Chronic Other nutritional; endocrine; and metabolic disorders (20 sources) Metabolic syndrome X; Translations: [Metabolic syndrome] 11-25-2004 Chronic Other nutritional; endocrine; and metabolic disorders (20 sources) Obesity; Translations: [Obesity, unspecified] 11-25-2004 Chronic Other upper respiratory disease (20 sources) Allergic rhinitis; Translations: [Allergic rhinitis, unspecified] 11-25-2004 Chronic Other upper respiratory infections (1 source) Chronic sinusitis, unspecified; Translations: [Sinobronchitis] Onset: 3 Chronic Other upper respiratory infections (1 source) Acute upper respiratory infection; Translations: [Acute upper respiratory infection, unspecified] 12-17-2022 Episodic Skin and subcutaneous tissue infections (1 source) Infection of skin; Translations: [Local infection of the skin and subcutaneous tissue, unspecified] Episodic Spondylosis; intervertebral disc disorders; other back problems (20 sources) Degeneration of cervical intervertebral disc; Translations: [Other cervical disc degeneration, unspecified cervical region] Onset: 0 11-19-2009 Chronic Spondylosis; intervertebral disc disorders; other back problems (2 sources) Lumbago with sciatica, left side; Translations: [Lumbago with sciatica, right side] Onset: 3 Episodic Unclassified (1 source) Unknown / UNK(Unknown) Onset: 8 Viral infection (1 source) COVID-19; Translations: [COVID-19 virus infection] Onset: 3 Past or Other Problems Problem Classification Problem Date Documented Da te Episodic/Chronic Cancer of thyroid (20 sources) History of malignant neoplasm of thyroid; Translations: [Personal history of malignant neoplasm of thyroid] Onset: 06-08-2006 06-08-2006 Episodic Cardiac dysrhythmias (20 sources) Palpitations; Translations: [Palpitations] Onset: 2011 2011 Episodic Diabetes mellitus without complication (20 sources) Impaired fasting glycemia; Translations: [Impaired fasting glucose] Onset: 03-31-2015 03-31-2015 Episodic Other connective tissue disease (20 sources) Nontraumatic compartment syndrome of left lower extremity; Translations: [Nontraumatic compartment syndrome of lower extremity] Onset: 03-25-2011 02-22-2021 Episodic Other gastrointestinal disorders (20 sources) Diarrhea; Translations: [Diarrhea, unspecified] Onset: 11-14-2007 11-14-2007 Episodic Other gastrointestinal disorders (1 source) Other specified symptoms and signs involving the digestive system and abdomen; Translations: [Alternating constipation and diarrhea] Onset: 10-07-2022 Episodic Other gastrointestinal disorders (1 source) Other fecal abnormalities; Translations: [Loose stools] Onset: 04-08-2022 Episodic Other screening for suspected conditions (not mental disorders or infectious disease) (5 sources) Patient encounter status; Translations: [Encounter for screening mammogram for malignant neoplasm of breast] Onset: 10-07-2022 Episodic Results Test Name Value Interpretation Reference Range Facil ity Vital Signs Date Time Vital Sign Value Performing Clinician Dimitris toledo 01-30-2023 15:33-0500 Body weight 83.01 kg David Cantu MD Work Phone: [facility] 01-30-2023 15:33-0500 Diastolic blood pressure 65 mm[Hg] David Cantu MD Work Phone: [facility] 01-30-2023 15:33-0500 Heart rate 63 /min David Cantu MD Work Phone: [facility] 01-30-2023 15:33-0500 SaO2% (BldA) [Mass fraction] 94 % David Cantu MD Work Phone: [facility] 01-30-2023 15:33-0500 Systolic blood pressure 132 mm[Hg] David Cantu MD Work Phone: [facility] 12-17-2022 09:26-0400 Body temperature 97.7 [degF] Jordon Horvath GLYCERINE PLANT OPERATOR.LEAK INSPECTOR Work Phone: [facility] 12-17-2022 09:26-0400 Body weight 83.92 kg Jordon Horvath APRN.LEAK INSPECTOR Work Phone: [facility] 12-17-2022 09:26-0400 Diastolic blood pressure 72 mm[Hg] Jordon Horvath APRN.LEAK INSPECTOR Work Phone: [facility] 12-17-2022 09:26-0400 Heart rate 70 /min Jordon Horvath APRN.LEAK INSPECTOR Work Phone: [facility] 12-17-2022 09:26-0400 Respiratory rate 16 /min Jordon Horvath APRN.LEAK INSPECTOR Work Phone: [facility] 12-17-2022 09:26-0400 SaO2% (BldA) [Mass fraction] 96 % Jordon King GLYCERINE PLANT OPERATOR.LEAK INSPECTOR Work Phone: [facility] 12-17-2022 09:26-0400 Systolic blood pressure 128 mm[Hg] Jordon Alexandru GLYCERINE PLANT OPERATOR.LEAK INSPECTOR Work Phone: [facility] 10-07-2022 13:55-0400 Body temperature 97.5 [degF] Philippe Ledbetter MD Work Phone: [facility] 10-07-2022 13:55-0400 Body weight 83.28 kg Philippe Ledbetter MD Work Phone: [facility] 10-07-2022 13:55-0400 Diastolic blood pressure 62 mm[Hg] Philippe Ledbetter MD Work Phone: [facility] 10-07-2022 13:55-0400 Heart rate 66 /min Philippe Ledbetter MD Work Phone: [facility] 10-07-2022 13:55-0400 Respiratory rate 18 /min Philippe Ledbetter MD Work Phone: [facility] 10-07-2022 13:55-0400 SaO2% (BldA) [Mass fraction] 96 % Philippe Ledbetter MD Work Phone: [facility] 10-07-2022 13:55-0400 Systolic blood pressure 122 mm[Hg] Philippe Ledbetter MD Work Phone: [facility] 06-06-2022 15:28-0400 Body weight 85.28 kg David Cantu MD Work Phone: [facility] 06-06-2022 15:28-0400 Diastolic blood pressure 64 mm[Hg] David Cantu MD Work Phone: [facility] 06-06-2022 15:28-0400 Heart rate 60 /min David Cantu MD Work Phone: [facility] 06-06-2022 15:28-0400 Systolic blood pressure 128 mm[Hg] David Cantu MD Work Phone: [facility] 04-08-2022 13:22-0500 Body weight 84.82 kg Colleen Cardona GLYCERINE PLANT OPERATOR.CORRECTIONS LIEUTENANT Work Phone: [facility] 04-08-2022 13:22-0500 Diastolic blood pressure 68 mm[Hg] Colleen Cardona GLYCERINE PLANT OPERATOR.CORRECTIONS LIEUTENANT Work Phone: [facility] 04-08-2022 13:22-0500 Heart rate 60 /min Colleen Cardona GLYCERINE PLANT OPERATOR.CORRECTIONS LIEUTENANT Work Phone: [facility] 04-08-2022 13:22-0500 Respiratory rate 16 /min Colleen Cardona GLYCERINE PLANT OPERATOR.CORRECTIONS LIEUTENANT Work Phone: [facility] 04-08-2022 13:22-0500 Systolic blood pressure 138 mm[Hg] Colleen Cardona GLYCERINE PLANT OPERATOR.CORRECTIONS LIEUTENANT Work Phone: [facility] 11-08-2021 15:16-0400 Body weight 85.28 kg David Cantu MD Work Phone: [facility] 11-08-2021 15:16-0400 Diastolic blood pressure 64 mm[Hg] David Cantu MD Work Phone: [facility] 11-08-2021 15:16-0400 Heart rate 68 /min David Cantu MD Work Phone: [facility] 11-08-2021 15:16-0400 Systolic blood pressure 118 mm[Hg] David Cantu MD Work Phone: [facility] 10-25-2021 11:25-0400 Body height 161.9 cm Ari Araujo MD Work Phone: [facility] 10-25-2021 11:25-0400 Body weight 85.73 kg Ari Araujo MD Work Phone: [facility] 10-06-2021 14:10-0400 Body weight 84.82 kg Philippe Ledbetter MD Work Phone: [facility] 10-06-2021 14:10-0400 Diastolic blood pressure 68 mm[Hg] Philippe Ledbetter MD Work Phone: [facility] 10-06-2021 14:10-0400 Heart rate 59 /min Philippe Ledbetter MD Work Phone: [facility] 10-06-2021 14:10-0400 SaO2% (BldA) [Mass fraction] 98 % Philippe Ledbetter MD Work Phone: [facility] 10-06-2021 14:10-0400 Systolic blood pressure 122 mm[Hg] Philippe Ledbetter MD Work Phone: [facility] 09-04-2021 13:27-0400 Body temperature 98.6 [degF] Jordon Alexandru GLYCERINE PLANT OPERATOR.LEAK INSPECTOR Work Phone: [facility] 09-04-2021 13:27-0400 Body weight 84.82 kg Jordon Alexandru GLYCERINE PLANT OPERATOR.LEAK INSPECTOR Work Phone: [facility] 09-04-2021 13:27-0400 Diastolic blood pressure 66 mm[Hg] Jordon Alexandru GLYCERINE PLANT OPERATOR.LEAK INSPECTOR Work Phone: [facility] 09-04-2021 13:27-0400 Heart rate 66 /min Jordon Alexandru GLYCERINE PLANT OPERATOR.LEAK INSPECTOR Work Phone: [facility] 09-04-2021 13:27-0400 Respiratory rate 16 /min Jordon Alexandru GLYCERINE PLANT OPERATOR.LEAK INSPECTOR Work Phone: [facility] 09-04-2021 13:27-0400 Systolic blood pressure 118 mm[Hg] Jordon Alexandru GLYCERINE PLANT OPERATOR.LEAK INSPECTOR Work Phone: [facility] Encounters Encounter Date Encounter Type Care Provider Facility Start: 02-14-2023 End: 02-15-2023 ambulatory PHILIPPE LEDBETTER Facility:[facility] Start: 02-03-2023 End: 02-04-2023 ambulatory PHILIPPE LEDBETTER Facility:[facility] Start: 02-02-2023 Documentation procedure Mammog maliha Coordinator [facility] Start: 02-02-2023 Letter encounter Mammography Coordinator [facility] Department Start: 02-01-2023 End: 02-01-2023 ambulatory PHILIPPE LEDBETTER Facility:[facility] Start: 02-01-2023 End: 02-01-2023 Subsequent hospital visit by physician Screen Mammo [facility] Mammogram Procedures Date Procedure Procedure Detail Performing Clinician Start: 01-28-2022 Screening mammograph y bi 2-view breast inc cad Colleen Cardona GLYCERINE PLANT OPERATOR.CORRECTIONS LIEUTENANT Work Phone: Plan of Treatment Date Care Activity Detail Author Start: 09-05-2031 Urine microalbumin profile [facility] Start: 02-03-2026 Diabetes Screening Diabetes Screenin g [facility] Start: 10-04-2025 DIABETES SCREEN DIABETES SCREEN [facility] Start: 10-04-2025 Diabetes Screening Diabetes Screenin g [facility] Start: 04-05-2025 DIABETES SCREEN DIABETES SCREEN [facility] Start: 09-30-2024 DIABETES SCREEN DIABETES SCREEN [facility] Start: 03-18-2024 DIABETES SCREEN DIABETES SCREEN [facility] Start: 04-09-2023 End: 06-09-2023 25-hydroxyvitamin D3 [Mass/volume] in Serum or Plasma VITAMIN D 25 HYDROXY Lab Routine Vitamin D deficiency Expected: 04/09/2023 (Approximate), Expires: 06/09/2023 [facility] Work Phone: Immunizations Immunization Date Immunization Notes Care Provider Juan segal 12-30-2022 respiratory syncytia l virus (RSV) vaccine, bivalent (ABRYSVO) Kelle Pak GLYCERINE PLANT OPERATOR.LEAK INSPECTOR Work Phone: [facility] 11-30-2022 influenza, high dose seasonal, preservative-free David Cantu MD Work Phone: [facility] 12-20-2021 COVID-19 booster vaccine, age 12+ yr, bivalent (PFIZER-BIONTECH) David Cantu MD Work Phone: [facility] Work Phone: 12-01-2021 influenza (aIIV4) vaccine, age 65+ yr, quadrivalent, PF (FLUAD QUADRIVALENT) Shari Head GLYCERINE PLANT OPERATOR.LEAK INSPECTOR Work Phone: [facility] Work Phone: 12-01-2021 influenza, injectabl e, quadrivalent, contains preservative David Cantu MD Work Phone: [facility] Work Phone: 12-01-2021 influenza virus vacc ine, unspecified formulation Jordon Horvath APRN.LEAK INSPECTOR Work Phone: [facility] 09-04-2021 tetanus and diphther ia toxoids, adsorbed, preservative free, for adult use (2 Lf of tetanus toxoid and 2 Lf of diphtheria toxoid) Jordon Horvath APRN.LEAK INSPECTOR Work Phone: [facility] Work Phone: 09-04-2021 tetanus toxoid, redu cesar diphtheria toxoid, and acellular pertussis vaccine, adsorbed Philippe Ledbetter MD Work Phone: [facility] Work Phone: 11-26-2020 influenza, high dose seasonal, preservative-free Jordon Horvath APRN.LEAK INSPECTOR Work Phone: [facility] Work Phone: 04-17-2020 COVID-19 vaccine, fu ll dose (MODERNA) Jordon Horvath APRN.LEAK INSPECTOR Work Phone: [facility] Work Phone: 03-20-2020 COVID-19 vaccine, fu ll dose (MODERNA) Jordon Horvath APRN.LEAK INSPECTOR Work Phone: [facility] Work Phone: 11-27-2019 influenza, high-dose , quadrivalent vaccine (FLUZONE HIGH DOSE QUADRIVALENT) Jordon Horvath APRN.LEAK INSPECTOR Work Phone: [facility] 02-04-2019 zoster vaccine recombinant Jordon Horvath APRN.LEAK INSPECTOR Work Phone: [facility] 11-23-2018 zoster vaccine recombinant Jordon Horvath APRN.LEAK INSPECTOR Work Phone: [facility] 11-20-2018 influenza, high dose seasonal, preservative-free Jordon Alexandru GLYCERINE PLANT OPERATOR.LEAK INSPECTOR Work Phone: [facility] Work Phone: 12-06-2017 influenza, high dose seasonal, preservative-free Jordon King GLYCERINE PLANT OPERATOR.LEAK INSPECTOR Work Phone: [facility] Work Phone: 12-06-2017 Seasonal trivalent influenza vaccine, adjuvanted, preservative free Jordon Alexandru GLYCERINE PLANT OPERATOR.LEAK INSPECTOR Work Phone: [facility] 11-28-2016 influenza, high dose seasonal, preservative-free Jordon Alexandru GLYCERINE PLANT OPERATOR.LEAK INSPECTOR Work Phone: [facility] Work Phone: 12-14-2015 influenza, high dose seasonal, preservative-free Jordon Alexandru GLYCERINE PLANT OPERATOR.LEAK INSPECTOR Work Phone: [facility] Work Phone: 11-27-2014 influenza, high dose seasonal, preservative-free Jordon Alexandru GLYCERINE PLANT OPERATOR.LEAK INSPECTOR Work Phone: [facility] 10-08-2014 pneumococcal conjuga te vaccine, 13 valent Jordon Alexandru GLYCERINE PLANT OPERATOR.LEAK INSPECTOR Work Phone: [facility] 12-03-2013 influenza, seasonal, injectable Jordon Alexandru GLYCERINE PLANT OPERATOR.LEAK INSPECTOR Work Phone: [facility] 11-27-2012 influenza virus vacc ine, unspecified formulation Jordon Alexandru GLYCERINE PLANT OPERATOR.LEAK INSPECTOR Work Phone: [facility] 12-31-2011 zoster vaccine, live Sue Horvath GLYCERINE PLANT OPERATOR.LEAK INSPECTOR Work Phone: [facility] Work Phone: 12-22-2011 influenza virus vacc ine, unspecified formulation Jordon Alexandru GLYCERINE PLANT OPERATOR.LEAK INSPECTOR Work Phone: [facility] 12-18-2010 influenza virus vacc ine, unspecified formulation Jordon King GLYCERINE PLANT OPERATOR.LEAK INSPECTOR Work Phone: [facility] Work Phone: 01-02-2010 influenza virus vacc ine, unspecified formulation Jordongeoffrey Horvath GLYCERINE PLANT OPERATOR.LEAK INSPECTOR Work Phone: [facility] Work Phone: 11-17-2008 influenza virus vacc ine, unspecified formulation Jordon Horvath GLYCERINE PLANT OPERATOR.LEAK INSPECTOR Work Phone: [facility] Work Phone: 09-24-2008 pneumococcal polysaccharide vaccine, 23 valent Jordon Horvath GLYCERINE PLANT OPERATOR.LEAK INSPECTOR Work Phone: [facility] 01-04-2008 influenza virus vacc ine, unspecified formulation Jordon Horvath GLYCERINE PLANT OPERATOR.LEAK INSPECTOR Work Phone: [facility] 01-02-2007 influenza virus vacc ine, unspecified formulation Jordon Horvath GLYCERINE PLANT OPERATOR.LEAK INSPECTOR Work Phone: [facility] [facility] 01-05-2006 influenza virus vacc ine, unspecified formulation Jordon Horvath GLYCERINE PLANT OPERATOR.LEAK INSPECTOR Work Phone: [facility] Work Phone: 01-12-2005 influenza virus vacc ine, unspecified formulation Jordon Horvath GLYCERINE PLANT OPERATOR.LEAK INSPECTOR Work Phone: [facility] Work Phone: 11-28-2003 tetanus and diphther ia toxoids, adsorbed, preservative free, for adult use (2 Lf of tetanus toxoid and 2 Lf of diphtheria toxoid) Jordon Horvath DEYSI.LEAK INSPECTOR Work Phone: [facility] Work Phone: Payers Date Payer Category Payer Medicare MEDICARE MEDICAR E A AND B [id number] 2015-Present [phone] [place] [address] Medicare [id number] 2015 Medicare MEDICARE MEDICAR E A AND B [id number] 2015-Present [phone] [place] [address] Medicare [id number] 2015 Medicare [id number] 2015 Medicare [id number] 2015 Private Health Insurance HUMANA HUMANA MEDICARE SUPPLEMENT [id number] 2015-Present [phone] [address] [address] [place] [address] Indemnity [id number] 2015 Private Health Insurance HUMANA HUMANA MEDICARE SUPPLEMENT [id number] 2015-Present [phone] [address] [address] [place] [address] Indemnity [id number] Medicare [id number] Social History Date Type Detail Facility Start: 06-21-2011 Tobacco smoking status NHIS Never smoked tobacco [facility] Work Phone: Start: 04-12-2021 End: 01-30-2023 Alcohol intake Current drinker of alcohol (finding) [facility] Start: 04-12-2021 End: 03-17-2022 Alcohol intake [facility] Start: 08-04-2020 End: 09-30-2021 History SDOH Alcohol Frequency 5 [facility] Start: 08-04-2020 End: 04-03-2022 History SDOH Alcohol Std Drinks 1 [facility] Start: 08-04-2020 End: 04-03-2022 History SDOH Social Connections Get Together 4 [facility] Start: 08-04-2020 End: 04-03-2022 History SDOH Social Connections Baptism 98 [facility] Start: 08-04-2020 End: 04-03-2022 History SDOH Social Connections Meetings 3 [facility] Start: 08-04-2020 End: 04-03-2022 History SDOH Transport Med 2 [facility] Start: 08-04-2020 Education 15 [facility] Start: 1940 Sex Assigned At Female [facility] Start: 08-25-2021 End: 11-08-2021 Exposure to SARS-CoV-2 (event) Not sure [facility] Work Phone: Start: 06-21-2011 Tobacco use and exposure Smokeless tobacco non-user [facility] Work Phone: Start: 09-30-2021 End: 04-03-2022 History SDOH Physical Activity DPW 0 [facility] Start: 03-17-2022 End: 04-03-2022 Social connection and isolation panel [facility] How often do you att end mandaeism or catholic services? Patient refused [facility] Do you belong to any clubs or organizations such as mandaeism groups, [employer], [employer] or athletic groups, or school groups? Yes [facility] Are you now , , , , never or living with a partner? [facility] How often to you hav e a drink containing alcohol? 4 or more times a week [facility] How many standard dr inks containing alcohol do you have on a typical day? 1 or 2 [facility] How often do you hav e 6 or more drinks on 1 occasion? Never [facility] Do you feel stress - tense, restless, nervous, or anxious, or unable to sleep at night because your mind is troubled all the time - these days [OSQ] Not at all [facility] (I/We) worried wheth er (my/our) food would run out before (I/we) got money to buy more. Never true [facility] In the past 12 month s, was there a time when you were not able to pay the mortgage or rent on time? No [facility] Start: 09-14-2019 Gender identity Identifies as female gender (finding) [facility] Start: 09-14-2019 Sexual orientation Heterosexual (finding) [facility] Do you feel stress - tense, restless, nervous, or anxious, or unable to sleep at night because your mind is troubled all the time - these days [OSQ] Only a little [facility] Clinical Notes 02-15-2006 to 02-14-2023 Telephone Encounter - Souleymane Kevin RN - 02/03/2023 9:03 AM ESTTelephone Encounter - Philippe Ledbetter MD - 02/03/2023 1:22 AM ESTLetter - Dick Calvin - 02/02/2023 11:55 AM EST Note Date & Type Note Facility 02-14-2023 Note HNO ID: [id number] Author: Colleen Cardona APRN.CORRECTIONS LIEUTENANT Service: ? Author Type: Nurse Specialist Type: Progress Notes Filed: 02/14/2023 3:29 PM Note Text: SUBJECTIVE: Covid-19 Vaccine( season) due on 2022 MATEO Ledesma is a 82 year old female. 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 Presents today regarding back pain. She was seen by Philippe Ledbetter MD February 24, 2023. Noted weakness bilateral lower extremities. Treated with tapering dose of prednisone. Today reports she has seen Dr. Mendoza at [facility], states he declines to treat back pain, states he only treats pain after surgery. She reports imaging has been completed at his office, last MRI 2020. No outside hospital records/office visit notes are available at her visit today. Planned surgery: no Reports spine injection in a couple of weeks. Reports lots of coughing with back pain much worse afterwards. Injury: Reports fell in December x 4 due to leg weakness Imaging: at [facility] Character: reports right, left and middle low back pain, sharp with movement, bad ache all the time now unless sitting or laying Aggravate: Prolonged standing Current treatment:ibuprofen helped, prednisone also helped Creatinine Date Value Ref Range Status 02/03/2023 1.36 (H) 0.58 - 0.96 mg/dL Final 10/04/2022 1.06 (H) 0.58 - 0.96 mg/dL Final 04/05/2022 0.96 0.58 - 0.96 mg/dL Final 09/30/2021 0.92 0.58 - 0.96 mg/dL Final Hemoglobin A1C (%) Date Value 10/04/2022 5.9 04/05/2022 5.8 03/18/2021 5.8 11/30/2020 6.0 ) Notes typically drinking 2 glasses of wine per day. Review of Systems Constitutional: Negative. Musculoskeletal: Positive for arthralgias and neck pain. Objective BP 111/73 Pulse 63 Resp 16 Wt 83 kg (183 lb) BMI 31.66 kg/m? Physical Exam Vitals and nursing note reviewed. Constitutional: Appearance: Normal appearance. HENT: Head: Normocephalic and atraumatic. Eyes: Conjunctiva/sclera: Conjunctivae normal. Neck: Thyroid: No thyromegaly or thyroid tenderness. Vascular: No carotid bruit. Cardiovascular: Rate and Rhythm: Normal rate and regular rhythm. Pulses: Carotid pulses are 2+ on the right side and 2+ on the left side. Radial pulses are 2+ on the right side and 2+ on the left side. Heart sounds: Normal heart sounds. Pulmonary: Effort: Pulmonary effort is normal. Breath sounds: Normal breath sounds. Abdominal: General: Bowel sounds are normal. Palpations: Abdomen is soft. Musculoskeletal: Lumbar back: Tenderness and bony tenderness present. Decreased range of motion. Scoliosis present. Right lower leg: No edema. Left lower leg: No edema. Skin: General: Skin is warm. Neurological: General: No focal deficit present. Mental Status: She is alert and oriented to person, place, and time. Psychiatric: Mood and Affect: Mood normal. Behavior: Behavior normal. ALLERGIES Allergen Reactions Crestor [Rosuvastat* Myalgia muscle aches. Tolerates pravastatin every other day Lisinopril Cough Morphine Mental Status Change Naproxen Other: See Comments, GI Upset nausea Quinapril Cough Rofecoxib GI Upset Sulfa (Sulfonamide * Other: See Comments nausea rosuvastatin (CRESTOR) 5 mg tablet Take 1 tablet by mouth daily at bedtime. As directed levothyroxine (SYNTHROID) 100 mcg tablet Take 1 tablet by mouth once daily. losartan (COZAAR) 25 mg tablet Take 1 tablet by mouth once daily. dilTIAZem CD (CARTIA XT) 180 mg 24 hr capsule Take 1 capsule by mouth once daily. PARoxetine (PAXIL) 20 mg tablet Take 1 tablet by mouth once daily. spironolactone (ALDACTONE) 25 mg tablet Take 1 tablet by mouth once daily. ibuprofen 200 mg ORAL tablet Take 1-2 tablet's) every four(4) to six(6) hours as needed for pain with food predniSONE (DELTASONE) 10 mg tablet Take 4 tabs daily x 3 days, then 3 tabs x 3 days, 2 tabs x 3 days, then 1 tab x3 days with food. gabapentin (NEURONTIN) 100 mg capsule Take 1 capsule by mouth daily at bedtime for 90 days. benzonatate (TESSALON PERLE) 100 mg capsule Take 2 capsules by mouth three times a day as needed. (Patient not taking: Reported on 02/14/2023) ALPRAZolam (XANAX) 0.25 mg tablet Take 1 tablet by mouth once daily as needed for up to 90 days. Cholecalciferol, Vitamin D3, 50 mcg (2,000 unit) cap Take 1 capsule by mouth one time a week. (Patient taking differently: Take 2,000 Units by mouth every other day in the morning.) PAST MEDICAL HISTORY Diagnosis Date Allergic rhinitis, cause unspecified Allergic rhinitis Diarrhea Diverticulosis of colon (without mention of hemorrhage) Diverticulosis Diverticulosis of colon (without mention of hemorrhage) Dysmetabolic syndrome X Dysthymic disorder Depression (non-psychotic) External hemorrhoids without mention of complication Generalized oste (more content not included)... [facility] 02-03-2023 Miscellaneous Notes Phoned patient and given provider's message below with verbalized understanding. Reports she is having labs done today. Reports she is doing better, the cough is gone, and she is running around as usual. Reports she is stronger, but still having problems with her legs, and will be seeing Ortho on Monday for this. Reports she has had no falls since she had covid. Patient agreeable to call back with any concerns. Sorry for delay--was addressed on the lab form and not in telephone encounter No significant growth was seen on the urine culture. How is she doing? Lab obtained for [facility] and at nurse pod for review Patient calls to request results from urine culture completed at [facility] ER on 01/23/2023. Patient was instructed to contact PCP for results if hadn't heard anything by 01/30/2023 at follow up OV. Not able to see urine culture results to review with patient. Rhea Lang, RN documented in this encounter [facility] 02-02-2023 Miscellaneous Notes February 03, 2023 PID: [id number] Evelyn Ledesma [address] [place] [address] Dear Ms. Ledesma, We are pleased to inform you that the results of your recent breast imaging exam on 02/01/2023 are normal. Early detection of cancer is very important. We also understand recommendations regarding breast cancer screening are controversial. Please discuss with your primary care provider which strategy is best for you and whether a mammogram is right for you. Your imaging studies and report will be kept on file at [facility] as part of your permanent medical record and are available for your continuing care. Thank you for allowing us to help in meeting your health care needs. Sincerely, Dr. Murdock Interpreting Radiologist [facility] (Normal over 40) documented in this encounter [facility] 02-01-2023 Note HNO ID: [id number] Author: Shereen Lott Mammo Tech Service: ? Author Type: Finisher Screwdown Type: Progress Notes Filed: 02/01/2023 1:48 PM Note Text: Radiology Service Progress Note PATIENT NAME: Evelyn Ledesma DATE OF SERVICE: February 01, 2023 TIME: 1:30 PM PATIENT IDENTITY VERIFICATION COMPLETED USING TWO (2) IDENTIFIERS: Name and Date of confirmed by patient verbally. FALL SCREENING: Has the patient had 2 falls in the last year or 1 fall with injury or currently using an Ambulatory Assistive Device (Walker, Cane, Wheelchair, Crutches, etc.)? No PATIENT GENDER DATA: Female. status: : No status: NO. PATIENT RELEVANT IMPLANT DATA REVIEWED: Not Applicable RADIOLOGY DEPARTMENT: Mammography PERIPHERAL IV DATA: Not applicable SIGNED BY: Tamia Harris February 01, 2023 1:30 PM [facility] 02-01-2023 History of Present illness Narrative Radiology Service Progress Note PATIENT NAME: Evelyn Ledesma DATE OF SERVICE: February 01, 2023 TIME: 1:30 PM PATIENT IDENTITY VERIFICATION COMPLETED USING TWO (2) IDENTIFIERS: Name and Date of confirmed by patient verbally. FALL SCREENING: Has the patient had 2 falls in the last year or 1 fall with injury or currently using an Ambulatory Assistive Device (Walker, Cane, Wheelchair, Crutches, etc.)? No PATIENT GENDER DATA: Female. status: : No status: NO. PATIENT RELEVANT IMPLANT DATA REVIEWED: Not Applicable RADIOLOGY DEPARTMENT: Mammography PERIPHERAL IV DATA: Not applicable SIGNED BY: Tamia Harris February 01, 2023 1:30 PM documented in this encounter [facility] 01-30-2023 Note HNO ID: [id number] Author: David Cantu MD Service: ? Author Type: Physician Type: Progress Notes Filed: 01/30/2023 4:52 PM Note Text: [facility] CARDIOLOGY Cardiology ([facility]) [address] [facility] [address] OUTPATIENT VISIT DATE 01/30/2023 PRIMARY CARE PHYSICIAN: Pihlippe Ledbetter [address] [place] [address] HISTORY OF PRESENT ILLNESS: Ms. Ledesma is a 82 year old woman with a history of hypertension, dyslipidemia and palpitations secondary to frequent PVCs who presents for routine follow-up. Patient reports having COVID just before Thanksgi. She has had some shortness of breath and wheezing since her infection. She is currently on steroids. She has been doing a little bit better. She has not had chest pain or pressure. She has not had symptoms concerning for CHF including PND, orthopnea, or lower extremity edema. PAST MEDICAL HISTORY Diagnosis Date Allergic rhinitis, cause unspecified Allergic rhinitis Diarrhea Diverticulosis of colon (without mention of hemorrhage) Diverticulosis Diverticulosis of colon (without mention of hemorrhage) Dysmetabolic syndrome X Dysthymic disorder Depression (non-psychotic) External hemorrhoids without mention of complication Generalized osteoarthrosis, unspecified site Heart palpitations HTN (hypertension) Internal hemorrhoids without mention of complication Mitral valve disorders Mild leaking Obesity, unspecified Osteopenia Personal history of colonic polyps Colon polyps Personal history of 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 for papillary; radioactive iodine treatment X 2 in 2001 (for follicular) Snoring Unspecified essential hypertension Unspecified hemorrhoids without mention of complication Hemorrhoids PAST SURGICAL HISTORY Procedure Laterality Date APPENDECTOMY CARPAL TUNNEL Left long ago Dr. Oakley COLONOSCOPY FLX DX W/COLLJ SPEC WHEN PFRMD 01/29/16 COLONOSCOPY W/BIOPSY SINGLE/MULTIPLE 11/14/07 LAPAROSCOPY SURG CHOLECYSTECTOMY 2003 Cholecystectomy, lap PAST SURGICAL HISTORY OF foot surgery left foot PAST SURGICAL HISTORY OF 2010 partial knee arthroplasty, right PAST SURGICAL HISTORY OF Left partial knee arthroplasty PAST SURGICAL HISTORY OF Bilateral cataract surgery THYROIDECTOMY TOTAL/COMPLETE 2001 history of thyroid cancer--follicular and papillary TOTAL ABDOMINAL HYSTERECT W/WO RMVL TUBE OVARY 1988 Hysterectomy, ROSS SOCIAL HISTORY Social History Tobacco Use Smoking status: Never Smokeless tobacco: Never Vaping Use Vaping Use: Never used Substance Use Topics Alcohol use: Yes Comment: two glasses wine a day Drug use: No FAMILY HISTORY Problem Relation Age of Onset Diabetes Mother Hypertension Mother Arthritis Sister osteo Arthritis Mother osteo other (abdominal aortic aneurysm [Other]) Father 64 Hypertension Sister ALLERGIES: ALLERGIES Allergen Reactions Crestor [Rosuvastat* Myalgia muscle aches. Tolerates pravastatin every other day Lisinopril Cough Morphine Mental Status Change Naproxen Other: See Comments, GI Upset nausea Quinapril Cough Rofecoxib GI Upset Sulfa (Sulfonamide * Other: See Comments nausea MEDICATIONS: predniSONE (DELTASONE) 10 mg tabletTake 4 tabs daily x 3 days, then 3 tabs x 3 days, 2 tabs x 3 days, then 1 tab x3 days with food.Disp: 30 tabletRfl: 0 benzonatate (TESSALON PERLE) 100 mg capsuleTake 2 capsules by mouth three times a day as needed.Disp: 30 capsuleRfl: 0 rosuvastatin (CRESTOR) 5 mg tabletTake 1 tablet by mouth daily at bedtime. As directedDisp: 30 tabletRfl: 1 levothyroxine (SYNTHROID) 100 mcg tabletTake 1 tablet by mouth once daily.Disp: 90 tabletRfl: 3 losartan (COZAAR) 25 mg tabletTake 1 tablet by mouth once daily.Disp: 90 tabletRfl: 3 dilTIAZem CD (CARTIA XT) 180 mg 24 hr capsuleTake 1 capsule by mouth once daily.Disp: 90 capsuleRfl: 3 PARoxetine (PAXIL) 20 mg tabletTake 1 tablet by mouth once daily.Disp: 90 tabletRfl: 3 spironolactone (ALDACTONE) 25 mg tabletTake 1 tablet by mouth once daily.Disp: 90 tabletRfl: 3 ibuprofen 200 mg ORAL tabletTake 1-2 tablet's) every four(4) to six(6) hours as needed for pain with foodDisp: Rfl: 0 ALPRAZolam (XANAX) 0.25 mg tabletTake 1 tablet by mouth once daily as needed for up to 90 days.Disp: 10 tabletRfl: 0 Cholecalciferol, Vitamin D3, 50 mcg (2,000 unit) capTake 1 capsule by mouth one time a week.Disp: Rfl: (Patient taking differently: Take 2,000 Units by mouth every other day in the morning.) REVIEW OF SYSTEMS: Review of Systems Constitutional: Negative for chills, fever, malaise/fatigue and weight loss. HENT: Negative for hearing loss and sore throat. Eyes: Negative for blurred vision and double vision. Respiratory: Negative. Cardiovascular: Posi (more content not included)... [facility] 01-30-2023 History of Present illness Narrative Images from the original note were not included. [facility] CARDIOLOGY Cardiology ([facility]) [address] [facility] [address] OUTPATIENT VISIT DATE 01/30/2023 PRIMARY CARE PHYSICIAN: Philippe Ledbetter [address] [place] [address] HISTORY OF PRESENT ILLNESS: Ms. Ledesma is a 82 year old woman with a history of hypertension, dyslipidemia and palpitations secondary to frequent PVCs who presents for routine follow-up. Patient reports having COVID just before Thanksgiving. She has had some shortness of breath and wheezing since her infection. She is currently on steroids. She has been doing a little bit better. She has not had chest pain or pressure. She has not had symptoms concerning for CHF including PND, orthopnea, or lower extremity edema. PAST MEDICAL HISTORY Diagnosis Date Allergic rhinitis, cause unspecified Allergic rhinitis Diarrhea Diverticulosis of colon (without mention of hemorrhage) Diverticulosis Diverticulosis of colon (without mention of hemorrhage) Dysmetabolic syndrome X Dysthymic disorder Depression (non-psychotic) External hemorrhoids without mention of complication Generalized osteoarthrosis, unspecified site Heart palpitations HTN (hypertension) Internal hemorrhoids without mention of complication Mitral valve disorders Mild leaking Obesity, unspecified Osteopenia Personal history of colonic polyps Colon polyps Personal history of malignant neoplasm of thyroid 06/08/2001 s/p thyroidectomy 1961 for papillary; radioactive iodine treatment X 2 in 2001 (for follicular) Snoring Unspecified essential hypertension Unspecified hemorrhoids without mention of complication Hemorrhoids PAST SURGICAL HISTORY Procedure Laterality Date APPENDECTOMY CARPAL TUNNEL Left long ago Dr. Oakley COLONOSCOPY FLX DX W/COLLJ SPEC WHEN PFRMD 01/29/16 COLONOSCOPY W/BIOPSY SINGLE/MULTIPLE 11/14/07 LAPAROSCOPY SURG CHOLECYSTECTOMY 2003 Cholecystectomy, lap PAST SURGICAL HISTORY OF foot surgery left foot PAST SURGICAL HISTORY OF 2010 partial knee arthroplasty, right PAST SURGICAL HISTORY OF Left partial knee arthroplasty PAST SURGICAL HISTORY OF Bilateral cataract surgery THYROIDECTOMY TOTAL/COMPLETE 2001 history of thyroid cancer--follicular and papillary TOTAL ABDOMINAL HYSTERECT W/WO RMVL TUBE OVARY 1988 Hysterectomy, ROSS SOCIAL HISTORY Social History Tobacco Use Smoking status: Never Smokeless tobacco: Never Vaping Use Vaping Use: Never used Substance Use Topics Alcohol use: Yes Comment: two glasses wine a day Drug use: No FAMILY HISTORY Problem Relation Age of Onset Diabetes Mother Hypertension Mother Arthritis Sister osteo Arthritis Mother osteo other (abdominal aortic aneurysm [Other]) Father 64 Hypertension Sister ALLERGIES: ALLERGIES Allergen Reactions Crestor [Rosuvastat* Myalgia muscle aches. Tolerates pravastatin every other day Lisinopril Cough Morphine Mental Status Change Naproxen Other: See Comments, GI Upset nausea Quinapril Cough Rofecoxib GI Upset Sulfa (Sulfonamide * Other: See Comments nausea MEDICATIONS: predniSONE (DELTASONE) 10 mg tablet^Take 4 tabs daily x 3 days, then 3 tabs x 3 days, 2 tabs x 3 days, then 1 tab x3 days with food.^Disp: 30 tablet^Rfl: 0 benzonatate (TESSALON PERLE) 100 mg capsule^Take 2 capsules by mouth three times a day as needed.^Disp: 30 capsule^Rfl: 0 rosuvastatin (CRESTOR) 5 mg tablet^Take 1 tablet by mouth daily at bedtime. As directed^Disp: 30 tablet^Rfl: 1 levothyroxine (SYNTHROID) 100 mcg tablet^Take 1 tablet by mouth once daily.^Disp: 90 tablet^Rfl: 3 losartan (COZAAR) 25 mg tablet^Take 1 tablet by mouth once daily.^Disp: 90 tablet^Rfl: 3 dilTIAZem CD (CARTIA XT) 180 mg 24 hr capsule^Take 1 capsule by mouth once daily.^Disp: 90 capsule^Rfl: 3 PARoxetine (PAXIL) 20 mg tablet^Take 1 tablet by mouth once daily.^Disp: 90 tablet^Rfl: 3 spironolactone (ALDACTONE) 25 mg tablet^Take 1 tablet by mouth once daily.^Disp: 90 tablet^Rfl: 3 ibuprofen 200 mg ORAL tablet^Take 1-2 tablet's) every four(4) to six(6) hours as needed for pain with food^Disp: ^Rfl: 0 ALPRAZolam (XANAX) 0.25 mg tablet^Take 1 tablet by mouth once daily as needed for up to 90 days.^Disp: 10 tablet^Rfl: 0 Cholecalciferol, Vitamin D3, 50 mcg (2,000 unit) cap^Take 1 capsule by mouth one time a week.^Disp: ^Rfl: (Patient taking differently: Take 2,000 Units by mouth every other day in the morning.) REVIEW OF SYSTEMS: Review of Systems Constitutional: Negative for chills, fever, malaise/fatigue and weight loss. HENT: Negative for hearing loss and sore throat. Eyes: Negative for blurred vision and double vision. Respiratory: Negative. Cardiovascular: Positive for palpitations. Gastrointestinal: Negative. Genitourinary: Negative for dysuria, frequency, hematuria and urgency. Musculoskeletal: Positive for joint pain. Skin: Negative. Neurological: Negative for dizziness, seizures, loss of consciousness, weakness and headaches. Endo/Heme/Allergies: Negative for environmental allergies. Does not bruise/bleed easily. Psychiatric/Behavioral: Negative for depression. PHYSICAL EXAMINATION: BP 132/65 (BP Site: Right Arm, BP Position: Sitting, BP Cuff Size: Large Adult) Pulse 63 Wt 83 kg (183 lb) SpO2 94% BMI 31.66 kg/m General: Pleasant elderly woman sitting appears comfortable in no apparent distress. She is alert and oriented x3 HEENT: Carotid upstrokes are brisk bilaterally without bruits. No JVD appreciated. Pulmonary: Lungs are clear no rales, wheezes, rhonchi Cardiovascular: Normal S1, S2 with regular rate and rhythm. No murmurs, rubs, or gallops appreciated. Extremities: Warm, well-perfused, no lower extremity edema. 2+ distal pulses. CARDIOVASCULAR MEDICINE TESTING: ECG in the office 07/06/2020: Sinus rhythm normal axis and intervals. No significant ST or T wave changes; normal ECG Echocardiogram 11/25/2021: - Exam indication: Palpitations - The left ventricle is normal in size. Left ventricular systolic function is normal. EF = 66 5% (2D biplane) Indeterminate left ventricular diastolic dysfunction. - The right ventricle is normal in size. Right ventricular systolic function is normal. - The left atrial cavity is mildly dilated. - There are no significant valvular abnormalities. - Exam was compared with the prior echocardiographic exam performed on 05/21/2018, no significant change. Echocardiogram 05/21/2018: - Exam indication: SVT - The left ventricle is normal in size. Left ventricular systolic function is normal. EF = 68 5% (2D biplane) Grade I left ventricular diastolic dysfunction. - The right ventricle is normal in size. Right ventricular systolic function is normal. - The left atrial cavity is mildly dilated. - No apparent valvular heart disease by limitations of this study. 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 IMPRESSION: Ms. Ledesma is a 82 year old woman with a history of hypertension, dyslipidemia, palpitations secondary to PVCs who presents for routine cardiology follow-up. PLAN AND RECOMMENDATIONS: 1. SVT (supraventricular tachycardia) - ICD9: 427.89, ICD10: I47.10 (primary diagnosis) Minimal symptoms despite recent episode of COVID. Currently maintained on diltiazem. 2. Palpitations - ICD9: 785.1, ICD10: R00.2 3. Essential hypertension - ICD9: 401.9, ICD10: I10 Adequately controlled on current regimen. 4. Mixed hyperlipidemia - ICD9: 272.2, ICD10: E78.2 Currently taking Crestor 2.5 mg 4 days a week. Fasting blood work from November 2022 was reviewed. LDL cholesterol 74 mg/dL David Cantu MD documented in this encounter [facility] 01-25-2023 Note HNO ID: [id number] Author: hPilippe Ledbetter MD Service: ? Author Type: Physician Type: Progress Notes Filed: 03/01/2023 12:37 AM Note Text: This note was created using ePrepriter. Subjective Evelyn Ledesma is a 82 year old female. Patient presents with: ED Follow-up: and [facility] ER follow up SUBJECTIVE: Evelyn Ledesma is a 82 year old year old lady here today for and [facility] ER follow up appointment and for review of medical conditions. Noted that was + for COVID through [facility] 01/11. Treated with Paxlovid. Bronchitis signs and symptoms. Steroid did help with the cough. Just loose cough but cannot expectorate. Sinuses draining now. Gets sinus congestion but not nasal congestion. Lost taste and smell. Also diarrhea--once daily (not severe). Loose to watery. Awful weakness since COVID. Some mild weakness prior and feel like needed to sit down or hang on to something. Worse after COVID and fell at least 3 times. No injury. Monday before fell twice. Several days gets weak and legs give out and has to sit down or leans on something till strength comes back. Can feel the weakness starting. Went to ER for the frequent falls. Was set for injection of spine by Dr. Mendoza because of back pain--lumbar. Arthritis on Xray. Not leg weakness. When cancelled. Dr. Mendoza told her to go to ER. Was not drinking much before ER visit.. Pushing fluids too. Gets 1 or 2 bad episodes and has to sit or hang onto something. No falls but 2 episodes yesterday and 2 today of the terrible weakness and had to sit. No confusion with the last 4 episodes. Had confusion with 2 prior episodes. Confusion with episodes: forgot was there at fridge to get when felt like episode was happening. 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 PAST MEDICAL HISTORY Diagnosis Date Allergic rhinitis, cause unspecified Allergic rhinitis Diarrhea Diverticulosis of colon (without mention of hemorrhage) Diverticulosis Diverticulosis of colon (without mention of hemorrhage) Dysmetabolic syndrome X Dysthymic disorder Depression (non-psychotic) External hemorrhoids without mention of complication Generalized osteoarthrosis, unspecified site Heart palpitations HTN (hypertension) Internal hemorrhoids without mention of complication Mitral valve disorders Mild leaking Obesity, unspecified Osteopenia Personal history of colonic polyps Colon polyps Personal history of 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 for papillary; radioactive iodine treatment X 2 in 2001 (for follicular) Snoring Unspecified essential hypertension Unspecified hemorrhoids without mention of complication Hemorrhoids Current Outpatient Medications Medication Sig benzonatate (TESSALON PERLE) 100 mg capsule Take 2 capsules by mouth three times a day as needed. rosuvastatin (CRESTOR) 5 mg tablet Take 1 tablet by mouth daily at bedtime. As directed levothyroxine (SYNTHROID) 100 mcg tablet Take 1 tablet by mouth once daily. losartan (COZAAR) 25 mg tablet Take 1 tablet by mouth once daily. dilTIAZem CD (CARTIA XT) 180 mg 24 hr capsule Take 1 capsule by mouth once daily. ALPRAZolam (XANAX) 0.25 mg tablet Take 1 tablet by mouth once daily as needed for up to 90 days. PARoxetine (PAXIL) 20 mg tablet Take 1 tablet by mouth once daily. spironolactone (ALDACTONE) 25 mg tablet Take 1 tablet by mouth once daily. Cholecalciferol, Vitamin D3, 50 mcg (2,000 unit) cap Take 1 capsule by mouth one time a week. (Patient taking differently: Take 2,000 Units by mouth every other day in the morning.) ibuprofen 200 mg ORAL tablet Take 1-2 tablet's) every four(4) to six(6) hours as needed for pain with food Current Facility-Administered Medications Medication Dose Route Frequency perflutren lipid microspheres 1.3 mL in NaCl (PF) 0.9% 10 mL injection (DEFINITY) INTRAVENOUS DIRECTED PRN sodium chloride 0.9 % (flush) 10 mL (BD POSIFLUSH) 10 mL INTRAVENOUS DIRECTED PRN Review of Systems Neurological: Positive for weakness (Legs get weak while walking and feel like blocks of cement). Negative for dizziness, light-headedness, numbness and headaches. Muscles shake while sitting or standing sometimes and that is when feels like legs are getting weak Objective BP 94/62 Pulse 66 Temp (!) 35.9 ?C (96.7 ?F) Resp 18 Wt 81.2 kg (179 lb) SpO2 97% BMI 30.97 kg/m? Physical Exam Constitutional: Appearance: Normal appearance. HENT: Head: Normocephalic. Eyes: Conjunctiva/sclera: Conjunctivae normal. Cardiovascular: Rate and Rhythm: Normal rate and regular rhythm. Heart sounds: Normal heart sounds. Pulmonary: Effort: Pulmonary effort is normal. Breath sounds: Normal breath sounds. Musculoskeletal: Right lower leg: No edema. Left lower leg: No edema. Skin: General: Skin is warm and dry. Neurological: Gen (more content not included)... [facility] 01-12-2023 Miscellaneous Notes Patient identified by name and date of . Patient advised of positive COVID test; Paxlovid was discussed. Patient is agreeable to taking this medication. Rx sent to [facility]. She is advised to hold crestor and xanax while taking Paxlovid. Last labs for kidney function: Component Latest Ref Rng & Units 10/04/2022 Protein, Total 6.3 - 8.0 g/dL 7.2 Albumin 3.9 - 4.9 g/dL 4.4 Calcium 8.5 - 10.2 mg/dL 9.4 Bilirubin, Total 0.2 - 1.3 mg/dL 0.9 Alkaline Phosphatase 34 - 123 U/L 115 AST 13 - 35 U/L 26 ALT 7 - 38 U/L 26 Glucose 74 - 99 mg/dL 118 (H) BUN 7 - 21 mg/dL 20 Creatinine 0.58 - 0.96 mg/dL 1.06 (H) Sodium 136 - 144 mmol/L 140 Potassium 3.7 - 5.1 mmol/L 4.4 Chloride 97 - 105 mmol/L 103 CO2 22 - 30 mmol/L 24 Anion Gap 9 - 18 mmol/L 13 eGFR >=60 mL/min/1.73m 52 (L) Kelle Pak APRN.LEAK INSPECTOR documented in this encounter [facility] 01-11-2023 Note HNO ID: [id number] Author: Kelle Pak APRN.LEAK INSPECTOR Service: ? Author Type: Nurse Practitioner Type: Progress Notes Filed: 01/11/2023 1:12 PM Note Text: Subjective Cough Associated symptoms include chest pain (burning with cough). Pertinent negatives include no chills, no ear pain, no headaches, no sore throat, no myalgias and no shortness of breath. Evelyn Ledesma is a 82 year old female who presents with a cough since last night. Cough is dry, she has had some chest congestion and burning in her chest when she coughs. She has taken tessalon perles at home for cough. She has not had a fever. No known sick contacts. Review of Systems Constitutional: Negative for chills and fever. HENT: Positive for congestion. Negative for ear pain and sore throat. Respiratory: Positive for cough. Negative for sputum production and shortness of breath. Cardiovascular: Positive for chest pain (burning with cough). Musculoskeletal: Negative for myalgias. Neurological: Negative for dizziness and headaches. BP 116/62 Pulse 68 Temp 37.5 ?C (99.5 ?F) Resp 16 Wt 84.2 kg (185 lb 9.6 oz) SpO2 98% BMI 32.11 kg/m? PAST MEDICAL HISTORY Diagnosis Date Allergic rhinitis, cause unspecified Allergic rhinitis Diarrhea Diverticulosis of colon (without mention of hemorrhage) Diverticulosis Diverticulosis of colon (without mention of hemorrhage) Dysmetabolic syndrome X Dysthymic disorder Depression (non-psychotic) External hemorrhoids without mention of complication Generalized osteoarthrosis, unspecified site Heart palpitations HTN (hypertension) Internal hemorrhoids without mention of complication Mitral valve disorders Mild leaking Obesity, unspecified Osteopenia Personal history of colonic polyps Colon polyps Personal history of 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 for papillary; radioactive iodine treatment X 2 in 2001 (for follicular) Snoring Unspecified essential hypertension Unspecified hemorrhoids without mention of complication Hemorrhoids PAST SURGICAL HISTORY Procedure Laterality Date APPENDECTOMY CARPAL TUNNEL Left long ago Dr. Oakley COLONOSCOPY FLX DX W/COLLJ SPEC WHEN PFRMD 01/29/16 COLONOSCOPY W/BIOPSY SINGLE/MULTIPLE 11/14/07 LAPAROSCOPY SURG CHOLECYSTECTOMY 2003 Cholecystectomy, lap PAST SURGICAL HISTORY OF foot surgery left foot PAST SURGICAL HISTORY OF 2010 partial knee arthroplasty, right PAST SURGICAL HISTORY OF Left partial knee arthroplasty PAST SURGICAL HISTORY OF Bilateral cataract surgery THYROIDECTOMY TOTAL/COMPLETE 2001 history of thyroid cancer--follicular and papillary TOTAL ABDOMINAL HYSTERECT W/WO RMVL TUBE OVARY 1988 Hysterectomy, ROSS ALLERGIES Crestor [Rosuvastatin], Lisinopril, Morphine, Naproxen, Quinapril, Rofecoxib, and Sulfa (Sulfonamide Antibiotics) MEDICATIONS benzonatate (TESSALON PERLE) 100 mg capsuleTake 2 capsules by mouth three times a day as needed.Disp: 30 capsuleRfl: 0 rosuvastatin (CRESTOR) 5 mg tabletTake 1 tablet by mouth daily at bedtime. As directedDisp: 30 tabletRfl: 1 levothyroxine (SYNTHROID) 100 mcg tabletTake 1 tablet by mouth once daily.Disp: 90 tabletRfl: 3 losartan (COZAAR) 25 mg tabletTake 1 tablet by mouth once daily.Disp: 90 tabletRfl: 3 dilTIAZem CD (CARTIA XT) 180 mg 24 hr capsuleTake 1 capsule by mouth once daily.Disp: 90 capsuleRfl: 3 PARoxetine (PAXIL) 20 mg tabletTake 1 tablet by mouth once daily.Disp: 90 tabletRfl: 3 spironolactone (ALDACTONE) 25 mg tabletTake 1 tablet by mouth once daily.Disp: 90 tabletRfl: 3 ibuprofen 200 mg ORAL tabletTake 1-2 tablet's) every four(4) to six(6) hours as needed for pain with foodDisp: Rfl: 0 predniSONE (DELTASONE) 20 mg tabletTake 2 tablets by mouth once daily for 5 days.Disp: 10 tabletRfl: 0 ALPRAZolam (XANAX) 0.25 mg tabletTake 1 tablet by mouth once daily as needed for up to 90 days.Disp: 10 tabletRfl: 0 Cholecalciferol, Vitamin D3, 50 mcg (2,000 unit) capTake 1 capsule by mouth one time a week.Disp: Rfl: (Patient taking differently: Take 2,000 Units by mouth every other day in the morning.) FAMILY HISTORY Problem Relation Age of Onset Diabetes Mother Hypertension Mother Arthritis Sister osteo Arthritis Mother osteo other (abdominal aortic aneurysm [Other]) Father 64 Hypertension Sister Social History Tobacco Use Smoking status: Never Smokeless tobacco: Never Vaping Use Vaping Use: Never used Substance Use Topics Alcohol use: Yes Alcohol/week: 60.0 standard drinks of alcohol Comment: two glasses wine a day Drug use: No Objective Physical Exam Vitals and nursing note reviewed. Constitutional: General: She is not in acute distress. Appearance: Normal appearance. She is not ill-appearing. Cardiovascular: Rate and Rhythm: Normal rate and regular rhythm. Heart sounds: Normal heart sounds. Pulmonary: Effort: Pulmonary effort is nor (more content not included)... [facility] 12-17-2022 Note HNO ID: [id number] Author: Jordon Horvath APRN.LEAK INSPECTOR Service: ? Author Type: Nurse Practitioner Type: Progress Notes Filed: 12/17/2022 10:02 AM Note Text: Subjective HPI HPI Evelyn Ledesma is a 82 year old female who presents today for CC of scratchy throat, cough, congestion. This started 3 days ago. Has tried otc medication for relief. Symptoms are worsened by nothing. Risk factors, no known sick exposures. .Patient presents with: Cough: chest congestion, nasal drainage, throat burning x 3 days PAST MEDICAL HISTORY Diagnosis Date Allergic rhinitis, cause unspecified Allergic rhinitis Diarrhea Diverticulosis of colon (without mention of hemorrhage) Diverticulosis Diverticulosis of colon (without mention of hemorrhage) Dysmetabolic syndrome X Dysthymic disorder Depression (non-psychotic) External hemorrhoids without mention of complication Generalized osteoarthrosis, unspecified site Heart palpitations HTN (hypertension) Internal hemorrhoids without mention of complication Mitral valve disorders Mild leaking Obesity, unspecified Osteopenia Personal history of colonic polyps Colon polyps Personal history of 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 for papillary; radioactive iodine treatment X 2 in 2001 (for follicular) Snoring Unspecified essential hypertension Unspecified hemorrhoids without mention of complication Hemorrhoids PAST SURGICAL HISTORY Procedure Laterality Date APPENDECTOMY CARPAL TUNNEL Left long ago Dr. Oakley COLONOSCOPY FLX DX W/COLLJ SPEC WHEN PFRMD 01/29/16 COLONOSCOPY W/BIOPSY SINGLE/MULTIPLE 11/14/07 LAPAROSCOPY SURG CHOLECYSTECTOMY 2002 Cholecystectomy, lap PAST SURGICAL HISTORY OF foot surgery left foot PAST SURGICAL HISTORY OF 2010 partial knee arthroplasty, right PAST SURGICAL HISTORY OF Left partial knee arthroplasty PAST SURGICAL HISTORY OF Bilateral cataract surgery THYROIDECTOMY TOTAL/COMPLETE 2001 history of thyroid cancer--follicular and papillary TOTAL ABDOMINAL HYSTERECT W/WO RMVL TUBE OVARY 1989 Hysterectomy, ROSS ALLERGIES Crestor [Rosuvastatin], Lisinopril, Morphine, Naproxen, Quinapril, Rofecoxib, and Sulfa (Sulfonamide Antibiotics) MEDICATIONS rosuvastatin (CRESTOR) 5 mg tabletTake 1 tablet by mouth daily at bedtime. As directedDisp: 30 tabletRfl: 1 levothyroxine (SYNTHROID) 100 mcg tabletTake 1 tablet by mouth once daily.Disp: 90 tabletRfl: 3 losartan (COZAAR) 25 mg tabletTake 1 tablet by mouth once daily.Disp: 90 tabletRfl: 3 dilTIAZem CD (CARTIA XT) 180 mg 24 hr capsuleTake 1 capsule by mouth once daily.Disp: 90 capsuleRfl: 3 PARoxetine (PAXIL) 20 mg tabletTake 1 tablet by mouth once daily.Disp: 90 tabletRfl: 3 spironolactone (ALDACTONE) 25 mg tabletTake 1 tablet by mouth once daily.Disp: 90 tabletRfl: 3 ibuprofen 200 mg ORAL tabletTake 1-2 tablet's) every four(4) to six(6) hours as needed for pain with foodDisp: Rfl: 0 ALPRAZolam (XANAX) 0.25 mg tabletTake 1 tablet by mouth once daily as needed for up to 90 days.Disp: 10 tabletRfl: 0 Cholecalciferol, Vitamin D3, 50 mcg (2,000 unit) capTake 1 capsule by mouth one time a week.Disp: Rfl: (Patient taking differently: Take 2,000 Units by mouth every other day in the morning.) FAMILY HISTORY Problem Relation Age of Onset Diabetes Mother Hypertension Mother Arthritis Sister osteo Arthritis Mother osteo other (abdominal aortic aneurysm [Other]) Father 64 Hypertension Sister Social History Tobacco Use Smoking status: Never Smokeless tobacco: Never Vaping Use Vaping Use: Never used Substance Use Topics Alcohol use: Yes Alcohol/week: 60.0 standard drinks of alcohol Comment: two glasses wine a day Drug use: No Review of Systems Constitutional: Negative for fever. HENT: Positive for congestion and sore throat. Negative for ear pain and nosebleeds. Respiratory: Positive for cough. Negative for shortness of breath and wheezing. Gastrointestinal: Negative for diarrhea and vomiting. Musculoskeletal: Negative for neck pain. Skin: Negative for itching and rash. Objective Blood pressure 128/72, pulse 70, temperature 36.5 ?C (97.7 ?F), resp. rate 16, weight 83.9 kg (185 lb), SpO2 96 %. Physical Exam Constitutional: General: She is not in acute distress. Appearance: She is not toxic-appearing or diaphoretic. HENT: Head: Normocephalic and atraumatic. Nose: Nose normal. Mouth/Throat: Pharynx: Uvula midline. No pharyngeal swelling, oropharyngeal exudate, posterior oropharyngeal erythema or uvula swelling. Eyes: General: Lids are normal. No scleral icterus. Right eye: No discharge. Left eye: No discharge. Conjunctiva/sclera: Conjunctivae normal. Pupils: Pupils are equal, round, and reactive to light. Neck: Trachea: Trachea normal. Cardiovascular: Rate and Rhythm: Normal rate and regular rhythm. Heart sounds: Normal heart sounds. Pulmonary: (more content not included)... [facility] 12-17-2022 History of Present illness Narrative Subjective HPI HPI Evelyn Ledesma is a 82 year old female who presents today for CC of scratchy throat, cough, congestion. This started 3 days ago. Has tried otc medication for relief. Symptoms are worsened by nothing. Risk factors, no known sick exposures. .Patient presents with: Cough: chest congestion, nasal drainage, throat burning x 3 days PAST MEDICAL HISTORY Diagnosis Date Allergic rhinitis, cause unspecified Allergic rhinitis Diarrhea Diverticulosis of colon (without mention of hemorrhage) Diverticulosis Diverticulosis of colon (without mention of hemorrhage) Dysmetabolic syndrome X Dysthymic disorder Depression (non-psychotic) External hemorrhoids without mention of complication Generalized osteoarthrosis, unspecified site Heart palpitations HTN (hypertension) Internal hemorrhoids without mention of complication Mitral valve disorders Mild leaking Obesity, unspecified Osteopenia Personal history of colonic polyps Colon polyps Personal history of 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 for papillary; radioactive iodine treatment X 2 in 2001 (for follicular) Snoring Unspecified essential hypertension Unspecified hemorrhoids without mention of complication Hemorrhoids PAST SURGICAL HISTORY Procedure Laterality Date APPENDECTOMY CARPAL TUNNEL Left long ago Dr. Oakley COLONOSCOPY FLX DX W/COLLJ SPEC WHEN PFRMD 01/29/16 COLONOSCOPY W/BIOPSY SINGLE/MULTIPLE 11/14/07 LAPAROSCOPY SURG CHOLECYSTECTOMY 2003 Cholecystectomy, lap PAST SURGICAL HISTORY OF foot surgery left foot PAST SURGICAL HISTORY OF 2010 partial knee arthroplasty, right PAST SURGICAL HISTORY OF Left partial knee arthroplasty PAST SURGICAL HISTORY OF Bilateral cataract surgery THYROIDECTOMY TOTAL/COMPLETE 2001 history of thyroid cancer--follicular and papillary TOTAL ABDOMINAL HYSTERECT W/WO RMVL TUBE OVARY 1988 Hysterectomy, ROSS ALLERGIES Crestor [Rosuvastatin], Lisinopril, Morphine, Naproxen, Quinapril, Rofecoxib, and Sulfa (Sulfonamide Antibiotics) MEDICATIONS rosuvastatin (CRESTOR) 5 mg tablet^Take 1 tablet by mouth daily at bedtime. As directed^Disp: 30 tablet^Rfl: 1 levothyroxine (SYNTHROID) 100 mcg tablet^Take 1 tablet by mouth once daily.^Disp: 90 tablet^Rfl: 3 losartan (COZAAR) 25 mg tablet^Take 1 tablet by mouth once daily.^Disp: 90 tablet^Rfl: 3 dilTIAZem CD (CARTIA XT) 180 mg 24 hr capsule^Take 1 capsule by mouth once daily.^Disp: 90 capsule^Rfl: 3 PARoxetine (PAXIL) 20 mg tablet^Take 1 tablet by mouth once daily.^Disp: 90 tablet^Rfl: 3 spironolactone (ALDACTONE) 25 mg tablet^Take 1 tablet by mouth once daily.^Disp: 90 tablet^Rfl: 3 ibuprofen 200 mg ORAL tablet^Take 1-2 tablet's) every four(4) to six(6) hours as needed for pain with food^Disp: ^Rfl: 0 ALPRAZolam (XANAX) 0.25 mg tablet^Take 1 tablet by mouth once daily as needed for up to 90 days.^Disp: 10 tablet^Rfl: 0 Cholecalciferol, Vitamin D3, 50 mcg (2,000 unit) cap^Take 1 capsule by mouth one time a week.^Disp: ^Rfl: (Patient taking differently: Take 2,000 Units by mouth every other day in the morning.) FAMILY HISTORY Problem Relation Age of Onset Diabetes Mother Hypertension Mother Arthritis Sister osteo Arthritis Mother osteo other (abdominal aortic aneurysm [Other]) Father 64 Hypertension Sister Social History Tobacco Use Smoking status: Never Smokeless tobacco: Never Vaping Use Vaping Use: Never used Substance Use Topics Alcohol use: Yes Alcohol/week: 60.0 standard drinks of alcohol Comment: two glasses wine a day Drug use: No Review of Systems Constitutional: Negative for fever. HENT: Positive for congestion and sore throat. Negative for ear pain and nosebleeds. Respiratory: Positive for cough. Negative for shortness of breath and wheezing. Gastrointestinal: Negative for diarrhea and vomiting. Musculoskeletal: Negative for neck pain. Skin: Negative for itching and rash. Objective Blood pressure 128/72, pulse 70, temperature 36.5 C (97.7 F), resp. rate 16, weight 83.9 kg (185 lb), SpO2 96 %. Physical Exam Constitutional: General: She is not in acute distress. Appearance: She is not toxic-appearing or diaphoretic. HENT: Head: Normocephalic and atraumatic. Nose: Nose normal. Mouth/Throat: Pharynx: Uvula midline. No pharyngeal swelling, oropharyngeal exudate, posterior oropharyngeal erythema or uvula swelling. Eyes: General: Lids are normal. No scleral icterus. Right eye: No discharge. Left eye: No discharge. Conjunctiva/sclera: Conjunctivae normal. Pupils: Pupils are equal, round, and reactive to light. Neck: Trachea: Trachea normal. Cardiovascular: Rate and Rhythm: Normal rate and regular rhythm. Heart sounds: Normal heart sounds. Pulmonary: Effort: Pulmonary effort is normal. Breath sounds: Normal breath sounds. Musculoskeletal: Cervical back: Normal range of motion and neck supple. Lymphadenopathy: Cervical: No cervical adenopathy. Right cervical: No superficial cervical adenopathy. Left cervical: No superficial cervical adenopathy. Skin: Findings: No rash. Neurological: Mental Status: She is alert and oriented to person, place, and time. ASSESSMENT/PLAN: 1. URI, acute - ICD9: 465.9, ICD10: J06.9 -exam/vs normal today - Discussed viral etiology and rationale for treatment. - Symptomatic treatment with prn analgesia - Supportive care with fluids and rest - Follow up in 3-5 days if symptoms persist or sooner if worsening of symptoms -If you experience chest pain/shortness of breath go to ER - BENZONATATE 100 MG CAPSULE - PREDNISONE 20 MG TABLET - COVID & INFLUENZA A/B & RSV NAAT, ROUTINE - COVID NAAT, UPPER RESPIRATORY, ROUTINE - ROUTINE FLU A/B + RSV Jordon Horvath APRN.LEAK INSPECTOR documented in this encounter [facility] 10-07-2022 Note HNO ID: [id number] Author: Philippe Ledbetter MD Service: ? Author Type: Physician Type: Progress Notes Filed: 11/07/2022 1:14 AM Note Text: This note was created using Postdeckter. Subjective Evelyn Ledesma is a 81 year old female. Patient presents with: F/U 6 months SUBJECTIVE: Evelyn Ledesma is a 81 year old year old lady here today for 6 month follow up appointment for review of medical conditions. Plans to get the COVID vaccine booster in the fall. Reviewed had to lower pravastatin to 10 mg three days weekly because of muscle aches. Not needing Xanax often and only needs half pill. Bowel issues with diarrhea. Cannot figure out a change or a cause. Was never someone who was regular with daily BM. Was doing well after hysterectomy and ovaries out--bowels settled down. No problems till episode incontinence without warning about 6 months ago when just stood up after working on the computer. Now heads to bathroom right away when feels bowel gurgling. No cramping. Gets heavy feeling before gets episode. Last week 2 days in a row. One other episode when urgency while in the car and had to find a bathroom right away. has had constipation issues with small hard stools for a few days before gets the diarrhea. Has had more episodes of urgency and then has a large amount of diarrhea. Happen 2 days in a row last week. Before that was once a week to sometimes non per week. Sometimes goes for 2 to 3 days without BM then has normal BM. Often gets salads when eats out. Does have some variation in diet. Eats out a lot. Gets her salads and veggies when goes out. No blood. No unexplained weight loss. No mucousy stools. No obvious exposure to contaminated water. Does go to [facility] but does not drink water from the brady or tap. Problem started before going on houseboat. PAST MEDICAL HISTORY Diagnosis Date Allergic rhinitis, cause unspecified Allergic rhinitis Diarrhea Diverticulosis of colon (without mention of hemorrhage) Diverticulosis Diverticulosis of colon (without mention of hemorrhage) Dysmetabolic syndrome X Dysthymic disorder Depression (non-psychotic) External hemorrhoids without mention of complication Generalized osteoarthrosis, unspecified site Heart palpitations HTN (hypertension) Internal hemorrhoids without mention of complication Mitral valve disorders Mild leaking Obesity, unspecified Osteopenia Personal history of colonic polyps Colon polyps Personal history of 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 dilTIAZem CD (CARTIA XT) 180 mg 24 hr capsule Take 1 capsule by mouth once daily. PARoxetine (PAXIL) 20 mg tablet Take 1 tablet by mouth once daily. spironolactone (ALDACTONE) 25 mg tablet Take 1 tablet by mouth once daily. pravastatin (PRAVACHOL) 10 mg tablet Take 1 tablet by mouth once daily. levothyroxine (SYNTHROID) 100 mcg tablet Take 1 tablet by mouth once daily. ibuprofen 200 mg ORAL tablet Take 1-2 tablet's) every four(4) to six(6) hours as needed for pain with food ALPRAZolam (XANAX) 0.25 mg tablet Take 1 tablet by mouth once daily as needed for up to 90 days. tiZANidine (ZANAFLEX) 4 mg tablet Take 1 tablet by mouth at bedtime as needed (muscle spasms). Cholecalciferol, Vitamin D3, 50 mcg (2,000 unit) cap Take 1 capsule by mouth one time a week. (Patient taking differently: Take 2,000 Units by mouth every other day in the morning.) Current Facility-Administered Medications Medication Dose Route Frequency perflutren lipid microspheres 1.3 mL in NaCl (PF) 0.9% 10 mL injection (DEFINITY) INTRAVENOUS DIRECTED PRN sodium chloride 0.9 % (flush) 10 mL (BD POSIFLUSH) 10 mL INTRAVENOUS DIRECTED PRN Review of Systems Objective BP 122/62 Pulse 66 Temp 36.4 ?C (97.5 ?F) Resp 18 Wt 83.3 kg (183 lb 9.6 oz) SpO2 96% BMI 31.76 kg/m? Last 5 Encounter Wt Readings: Date: Wt: 10/07/2022 83.3 kg (183 lb 9.6 oz) 06/06/2022 85.3 kg (188 lb) 04/08/2022 84.8 kg (187 lb) 11/08/2021 85.3 kg (188 lb) 10/25/2021 85.7 kg (189 lb) No waist measurement recorded Estimated body mass index is 31.76 kg/m? as calculated from the following: Height as of 10/25/21: 161.9 cm (5' 3.75 ). Weight as of this encounter: 83.3 kg (183 lb 9.6 oz). Last 5 Encounter BP Readings: Date: BP: 10/07/2022 122/62 06/06/2022 128/64 04/08/2022 138/68 11/08/2021 118/64 10/22/2021 124/68 Physical Exam Constitutional: Appearance: Normal appearance. HENT: Head: Normocephalic. Eyes: Conjunctiva/sclera: Conjunctivae normal. Cardiovascular: Rate and Rhythm: Normal rate and regul (more content not included)... [facility] 10-07-2022 Instructions Philippe Ledbetter MD - 10/07/2022 2:36 PM EDT Crestor (rosuvastatin): Started 1/2 pill once weekly. Recommend Monday if going to titrate up dose as tolerated. After 2 weeks, if tolerating med, increase to1/2 pill twice weekly. After another 2 weeks, increase to 1/2 pill three times weekly. If having problems with muscle aches from statin: Get a bottle of creatine monohydrate powder. Each time you take creatine, you must take it with 8 ounces of water. The first day, take one Tablespoon twice a day and continue for 5 days. If the pain from muscle pains improves or stays away on creatine, then decrease to one Tablespoon daily. If the pain does not change, then simply stop the creatine. Please let me know what happens with this. Metamucil (psyllium) can be taken daily to help prevent constipation and diarrhea. Drink at least 4 to 6 glasses of caffeinated fluids daily. Consider what foods get you moving so that if bowels slow rosey, can eat or drink that. If still seeing hard balls of stool, this needs resolved before develop the watery stools. Other option would be to lower the dose to prior tolerated dose if had increased to 2 or 3 days per weeks then stay on that dose for a few weeks and get lipid checked after on stable dose for 4 to 6 weeks. documented in this encounter [facility] 10-07-2022 History of Present illness Narrative This note was created using [employer]. Subjective Evelyn Ledesma is a 81 year old female. Patient presents with: F/U 6 months SUBJECTIVE: Evelyn Ledesma is a 81 year old year old lady here today for 6 month follow up appointment for review of medical conditions. Plans to get the COVID vaccine booster in the fall. Reviewed had to lower pravastatin to 10 mg three days weekly because of muscle aches. Not needing Xanax often and only needs half pill. Bowel issues with diarrhea. Cannot figure out a change or a cause. Was never someone who was regular with daily BM. Was doing well after hysterectomy and ovaries out--bowels settled down. No problems till episode incontinence without warning about 6 months ago when just stood up after working on the computer. Now heads to bathroom right away when feels bowel gurgling. No cramping. Gets heavy feeling before gets episode. Last week 2 days in a row. One other episode when urgency while in the car and had to find a bathroom right away. has had constipation issues with small hard stools for a few days before gets the diarrhea. Has had more episodes of urgency and then has a large amount of diarrhea. Happen 2 days in a row last week. Before that was once a week to sometimes non per week. Sometimes goes for 2 to 3 days without BM then has normal BM. Often gets salads when eats out. Does have some variation in diet. Eats out a lot. Gets her salads and veggies when goes out. No blood. No unexplained weight loss. No mucousy stools. No obvious exposure to contaminated water. Does go to [facility] but does not drink water from the brady or tap. Problem started before going on house[place]. PAST MEDICAL HISTORY Diagnosis Date Allergic rhinitis, cause unspecified Allergic rhinitis Diarrhea Diverticulosis of colon (without mention of hemorrhage) Diverticulosis Diverticulosis of colon (without mention of hemorrhage) Dysmetabolic syndrome X Dysthymic disorder Depression (non-psychotic) External hemorrhoids without mention of complication Generalized osteoarthrosis, unspecified site Heart palpitations HTN (hypertension) Internal hemorrhoids without mention of complication Mitral valve disorders Mild leaking Obesity, unspecified Osteopenia Personal history of colonic polyps Colon polyps Personal history of 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 dilTIAZem CD (CARTIA XT) 180 mg 24 hr capsule Take 1 capsule by mouth once daily. PARoxetine (PAXIL) 20 mg tablet Take 1 tablet by mouth once daily. spironolactone (ALDACTONE) 25 mg tablet Take 1 tablet by mouth once daily. pravastatin (PRAVACHOL) 10 mg tablet Take 1 tablet by mouth once daily. levothyroxine (SYNTHROID) 100 mcg tablet Take 1 tablet by mouth once daily. ibuprofen 200 mg ORAL tablet Take 1-2 tablet's) every four(4) to six(6) hours as needed for pain with food ALPRAZolam (XANAX) 0.25 mg tablet Take 1 tablet by mouth once daily as needed for up to 90 days. tiZANidine (ZANAFLEX) 4 mg tablet Take 1 tablet by mouth at bedtime as needed (muscle spasms). Cholecalciferol, Vitamin D3, 50 mcg (2,000 unit) cap Take 1 capsule by mouth one time a week. (Patient taking differently: Take 2,000 Units by mouth every other day in the morning.) Current Facility-Administered Medications Medication Dose Route Frequency perflutren lipid microspheres 1.3 mL in NaCl (PF) 0.9% 10 mL injection (DEFINITY) INTRAVENOUS DIRECTED PRN sodium chloride 0.9 % (flush) 10 mL (BD POSIFLUSH) 10 mL INTRAVENOUS DIRECTED PRN Review of Systems Objective BP 122/62 Pulse 66 Temp 36.4 C (97.5 F) Resp 18 Wt 83.3 kg (183 lb 9.6 oz) SpO2 96% BMI 31.76 kg/m Last 5 Encounter Wt Readings: Date: Wt: 10/07/2022 83.3 kg (183 lb 9.6 oz) 06/06/2022 85.3 kg (188 lb) 04/08/2022 84.8 kg (187 lb) 11/08/2021 85.3 kg (188 lb) 10/25/2021 85.7 kg (189 lb) No waist measurement recorded Estimated body mass index is 31.76 kg/m as calculated from the following: Height as of 10/25/21: 161.9 cm (5' 3.75 ). Weight as of this encounter: 83.3 kg (183 lb 9.6 oz). Last 5 Encounter BP Readings: Date: BP: 10/07/2022 122/62 06/06/2022 128/64 04/08/2022 138/68 11/08/2021 118/64 10/22/2021 124/68 Physical Exam Constitutional: Appearance: Normal appearance. HENT: Head: Normocephalic. Eyes: Conjunctiva/sclera: Conjunctivae normal. Cardiovascular: Rate and Rhythm: Normal rate and regular rhythm. Heart sounds: Normal heart sounds. Pulmonary: Effort: Pulmonary effort is normal. Breath sounds: Normal breath sounds. Abdominal: General: There is no distension. Palpations: There is no mass. Tenderness: There is no abdominal tenderness. There is no guarding or rebound. Skin: General: Skin is warm and dry. Neurological: General: No focal deficit present. Mental Status: She is alert and oriented to person, place, and time. Psychiatric: Mood and Affect: Mood normal. Behavior: Behavior normal. Thought Content: Thought content normal. Judgment: Judgment normal. Component Latest Ref Rng & Units 09/30/2021 04/05/2022 10/04/2022 WBC 3.70 - 11.00 k/uL 5.59 4.97 5.57 RBC 3.90 - 5.20 m/uL 4.33 4.35 4.52 Hemoglobin 11.5 - 15.5 g/dL 14.3 14.2 14.7 Hematocrit 36.0 - 46.0 % 44.6 44.1 44.6 MCV 80.0 - 100.0 fL 103.0 (H) 101.4 (H) 98.7 MCH 26.0 - 34.0 pg 33.0 32.6 32.5 MCHC 30.5 - 36.0 g/dL 32.1 32.2 33.0 RDW-CV 11.5 - 15.0 % 13.0 12.9 13.0 Platelet Count 150 - 400 k/uL 295 304 291 MPV 9.0 - 12.7 fL 10.5 10.0 9.8 Neut% % 47.5 Abs Neut (ANC) 1.45 - 7.50 k/uL 2.65 Lymph% % 36.8 Abs Lymph 1.00 - 4.00 k/uL 2.05 [place]% % 11.3 Abs [place] <0.87 k/uL 0.63 Eosin% % 3.1 Abs Eosin <0.46 k/uL 0.17 Baso% % 0.9 Abs Baso <0.11 k/uL 0.05 Immature Gran % % 0.4 IMMATURE GRANS (ABS) <0.10 k/uL <0.03 NRBC /100 WBC 0.0 Absolute nRBC <0.01 k/uL <0.01 <0.01 <0.01 DTYPE Auto Protein, Total 6.3 - 8.0 g/dL 6.7 6.9 7.2 Albumin 3.9 - 4.9 g/dL 4.3 4.3 4.4 Calcium 8.5 - 10.2 mg/dL 9.3 9.1 9.4 Bilirubin, Total 0.2 - 1.3 mg/dL 0.4 0.7 0.9 Alkaline Phosphatase 34 - 123 U/L 99 98 115 AST 13 - 35 U/L 21 23 26 ALT 7 - 38 U/L 23 25 26 Glucose 74 - 99 mg/dL 103 (H) 128 (H) 118 (H) BUN 7 - 21 mg/dL 21 14 20 Creatinine 0.58 - 0.96 mg/dL 0.92 0.96 1.06 (H) Sodium 136 - 144 mmol/L 141 141 140 Potassium 3.7 - 5.1 mmol/L 4.5 4.8 4.4 Chloride 97 - 105 mmol/L 107 (H) 106 (H) 103 CO2 22 - 30 mmol/L 25 27 24 Anion Gap 9 - 18 mmol/L 9 8 (L) 13 eGFR >=60 mL/min/1.73m 62 59 (L) 52 (L) Cholesterol, Total <200 mg/dL 183 175 212 (H) Triglyceride <150 mg/dL 88 98 117 HDL Cholesterol >39 mg/dL 57 61 68 Non HDL Cholesterol <130 mg/dL 126 114 144 (H) Fasting Time hrs 14 13 12 VLDL Cholesterol <30 mg/dL 18 20 23 TC:HDL Ratio <5.10 3.21 2.87 3.12 LDL Cholesterol <100 mg/dL 108 (H) 94 121 (H) LDL:HDL Ratio <2.54 1.89 1.54 1.78 Hemoglobin A1C 4.3 - 5.6 % 5.7 (H) 5.8 (H) 5.9 (H) Estimated Average Glucose mg/dL 117 120 123 TSH 0.270 - 4.200 mIU/L 0.355 0.760 1.200 Free T4 0.9 - 1.7 ng/dL 1.4 1.3 Free T3 2.3 - 4.1 pg/mL 2.4 2.5 Vitamin D 25 Hydroxy 31.0 - 80.0 ng/mL 36.6 36.5 Assessment and Plan Encounter Diagnosis ICD-10-CM 1. Hypercholesterolemia E78.00 rosuvastatin (CRESTOR) 5 mg tablet LIPID PANEL BASIC LIPID PANEL BASIC 2. Alternating constipation and diarrhea R19.8 Discussed management with fiber, adequate fluids, diet, etc. 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 Personal history of malignant neoplasm of thyroid Z85.850 levothyroxine (SYNTHROID) 100 mcg tablet THYROGLOBULIN BY MASS SPECTROMETRY 5. Breast cancer screening by mammogram Z12.31 AWA SCREENING 6. Vitamin D deficiency E55.9 VITAMIN D 25 HYDROXY 7. IFG (impaired fasting glucose) R73.01 COMP METABOLIC PANEL HGB A1C 8. Essential hypertension I10 COMP METABOLIC PANEL CBC Above issues addressed with patient. Patient involved in shared decision making for management of medical issues. History and medications reviewed. Epic updated as needed Refills and/or prescriptions taken care of and meds adjusted as indicated after reviewed history, exam and labs. Health Maintenance reviewed. Updated record and/or ordered tests as recorded. Encouraged on efforts at healthy diet and regular exercise and adequate sleep. Philippe Ledbetter MD documented in this encounter [facility] 08-23-2022 Miscellaneous Notes Patient phones requesting refills as follows: Requested Prescriptions Pending Prescriptions Disp Refills losartan (COZAAR) 25 mg tablet 90 tablet 3 Sig: Take 1 tablet by mouth once daily. Please review and advise. Jessica Gillespie LPN documented in this encounter [facility] 06-10-2022 Miscellaneous Notes Last seen [employer] 04/08/22. Next appt 10/07/22. Patient has been identified by name and date of : Yes Requested Prescriptions Pending Prescriptions Disp Refills dilTIAZem CD (CARTIA XT) 180 mg 24 hr capsule 90 capsule 3 Sig: Take 1 capsule by mouth once daily. RX INSTRUCTIONS: Patient aware RX escripted to mail away pharmacy. No need to notify patient. Rebeka Simon documented in this encounter [facility] 06-06-2022 Note HNO ID: [id number] Author: David Cantu MD Service: ? Author Type: Physician Type: Progress Notes Filed: 06/06/2022 4:22 PM Note Text: [facility] Cardiology ([facility]) [address] [id number] OUTPATIENT VISIT DATE 06/06/2022 PRIMARY CARE PHYSICIAN: Philippe Ledbetter [address] [place] [address] HISTORY OF PRESENT ILLNESS: Ms. Ledesma is a 81 year old woman with a history of hypertension, dyslipidemia and palpitations secondary to frequent PVCs who presents for routine follow-up. Patient has been doing well from a functional standpoint. She denies symptoms of chest pain or pressure. Home blood pressure readings have been adequate. She had a list of her most recent readings. She has not had feelings of palpitations, heart racing, dizziness, or syncope. She has not had symptoms concerning for CHF including PND, orthopnea, or lower extremity edema. PAST MEDICAL HISTORY Diagnosis Date Allergic rhinitis, cause unspecified Allergic rhinitis Diarrhea Diverticulosis of colon (without mention of hemorrhage) Diverticulosis Diverticulosis of colon (without mention of hemorrhage) Dysmetabolic syndrome X Dysthymic disorder Depression (non-psychotic) External hemorrhoids without mention of complication Generalized osteoarthrosis, unspecified site Heart palpitations HTN (hypertension) Internal hemorrhoids without mention of complication Mitral valve disorders Mild leaking Obesity, unspecified Osteopenia Personal history of colonic polyps Colon polyps Personal history of malignant neoplasm of thyroid 06/08/2001 s/p thyroidectomy 1961 for papillary; radioactive iodine treatment X 2 in 2001 (for follicular) Snoring Unspecified essential hypertension Unspecified hemorrhoids without mention of complication Hemorrhoids PAST SURGICAL HISTORY Procedure Laterality Date APPENDECTOMY CARPAL TUNNEL Left long ago Dr. Oakley COLONOSCOPY FLX DX W/COLLJ SPEC WHEN PFRMD 01/29/16 COLONOSCOPY W/BIOPSY SINGLE/MULTIPLE 11/14/07 LAPAROSCOPY SURG CHOLECYSTECTOMY 2003 Cholecystectomy, lap PAST SURGICAL HISTORY OF foot surgery left foot PAST SURGICAL HISTORY OF 2010 partial knee arthroplasty, right PAST SURGICAL HISTORY OF Left partial knee arthroplasty PAST SURGICAL HISTORY OF Bilateral cataract surgery THYROIDECTOMY TOTAL/COMPLETE 2001 history of thyroid cancer--follicular and papillary TOTAL ABDOMINAL HYSTERECT W/WO RMVL TUBE OVARY 1988 Hysterectomy, ROSS SOCIAL HISTORY Social History Tobacco Use Smoking status: Never Smokeless tobacco: Never Vaping Use Vaping Use: Never used Substance Use Topics Alcohol use: Yes Alcohol/week: 60.0 standard drinks Comment: two glasses wine a day Drug use: No FAMILY HISTORY Problem Relation Age of Onset Diabetes Mother Hypertension Mother Arthritis Sister osteo Arthritis Mother osteo other (abdominal aortic aneurysm [Other]) Father 64 Hypertension Sister ALLERGIES: ALLERGIES Allergen Reactions Crestor [Rosuvastat* Myalgia muscle aches. Tolerates pravastatin every other day Lisinopril Cough Morphine Mental Status Change Naproxen Other: See Comments, GI Upset nausea Quinapril Cough Rofecoxib GI Upset Sulfa (Sulfonamide * Other: See Comments nausea MEDICATIONS: ALPRAZolam (XANAX) 0.25 mg tabletTake 1 tablet by mouth once daily as needed for up to 90 days.Disp: 10 tabletRfl: 0 losartan (COZAAR) 25 mg tabletTake 1 tablet by mouth once daily.Disp: 90 tabletRfl: 3 tiZANidine (ZANAFLEX) 4 mg tabletTake 1 tablet by mouth at bedtime as needed (muscle spasms).Disp: 30 tabletRfl: 0 PARoxetine (PAXIL) 20 mg tabletTake 1 tablet by mouth once daily.Disp: 90 tabletRfl: 3 spironolactone (ALDACTONE) 25 mg tabletTake 1 tablet by mouth once daily.Disp: 90 tabletRfl: 3 pravastatin (PRAVACHOL) 10 mg tabletTake 1 tablet by mouth once daily.Disp: 90 tabletRfl: 3 levothyroxine (SYNTHROID) 100 mcg tabletTake 1 tablet by mouth once daily.Disp: 90 tabletRfl: 3 dilTIAZem CD (CARTIA XT) 180 mg 24 hr capsuleTake 1 capsule by mouth once daily.Disp: 90 capsuleRfl: 3 ibuprofen 200 mg ORAL tabletTake 1-2 tablet's) every four(4) to six(6) hours as needed for pain with foodDisp: Rfl: 0 Cholecalciferol, Vitamin D3, 50 mcg (2,000 unit) capTake 1 capsule by mouth one time a week.Disp: Rfl: (Patient taking differently: Take 2,000 Units by mouth every other day in the morning.) REVIEW OF SYSTEMS: Review of Systems Constitutional: Negative for chills, fever, malaise/fatigue and weight loss. HENT: Negative for hearing loss and sore throat. Eyes: Negative for blurred vision and double vision. Respiratory: Negative. Cardiovascular: Positive for palpitations. Gastrointestinal: Negative. Genitourinary: Negative for dysuria, frequenc (more content not included)... [facility] 06-06-2022 History of Present illness Narrative Images from the original note were not included. [facility] Cardiology ([facility]) [address] [facility] [id number] OUTPATIENT VISIT DATE 06/06/2022 PRIMARY CARE PHYSICIAN: Philippe Ledbetter [address] [place] [address] HISTORY OF PRESENT ILLNESS: Ms. Ledesma is a 81 year old woman with a history of hypertension, dyslipidemia and palpitations secondary to frequent PVCs who presents for routine follow-up. Patient has been doing well from a functional standpoint. She denies symptoms of chest pain or pressure. Home blood pressure readings have been adequate. She had a list of her most recent readings. She has not had feelings of palpitations, heart racing, dizziness, or syncope. She has not had symptoms concerning for CHF including PND, orthopnea, or lower extremity edema. PAST MEDICAL HISTORY Diagnosis Date Allergic rhinitis, cause unspecified Allergic rhinitis Diarrhea Diverticulosis of colon (without mention of hemorrhage) Diverticulosis Diverticulosis of colon (without mention of hemorrhage) Dysmetabolic syndrome X Dysthymic disorder Depression (non-psychotic) External hemorrhoids without mention of complication Generalized osteoarthrosis, unspecified site Heart palpitations HTN (hypertension) Internal hemorrhoids without mention of complication Mitral valve disorders Mild leaking Obesity, unspecified Osteopenia Personal history of colonic polyps Colon polyps Personal history of malignant neoplasm of thyroid 06/08/2001 s/p thyroidectomy 1961 for papillary; radioactive iodine treatment X 2 in 2001 (for follicular) Snoring Unspecified essential hypertension Unspecified hemorrhoids without mention of complication Hemorrhoids PAST SURGICAL HISTORY Procedure Laterality Date APPENDECTOMY CARPAL TUNNEL Left long ago Dr. Oakley COLONOSCOPY FLX DX W/COLLJ SPEC WHEN PFRMD 01/29/16 COLONOSCOPY W/BIOPSY SINGLE/MULTIPLE 11/14/07 LAPAROSCOPY SURG CHOLECYSTECTOMY 2003 Cholecystectomy, lap PAST SURGICAL HISTORY OF foot surgery left foot PAST SURGICAL HISTORY OF 2010 partial knee arthroplasty, right PAST SURGICAL HISTORY OF Left partial knee arthroplasty PAST SURGICAL HISTORY OF Bilateral cataract surgery THYROIDECTOMY TOTAL/COMPLETE 2001 history of thyroid cancer--follicular and papillary TOTAL ABDOMINAL HYSTERECT W/WO RMVL TUBE OVARY 1988 Hysterectomy, ROSS SOCIAL HISTORY Social History Tobacco Use Smoking status: Never Smokeless tobacco: Never Vaping Use Vaping Use: Never used Substance Use Topics Alcohol use: Yes Alcohol/week: 60.0 standard drinks Comment: two glasses wine a day Drug use: No FAMILY HISTORY Problem Relation Age of Onset Diabetes Mother Hypertension Mother Arthritis Sister osteo Arthritis Mother osteo other (abdominal aortic aneurysm [Other]) Father 64 Hypertension Sister ALLERGIES: ALLERGIES Allergen Reactions Crestor [Rosuvastat* Myalgia muscle aches. Tolerates pravastatin every other day Lisinopril Cough Morphine Mental Status Change Naproxen Other: See Comments, GI Upset nausea Quinapril Cough Rofecoxib GI Upset Sulfa (Sulfonamide * Other: See Comments nausea MEDICATIONS: ALPRAZolam (XANAX) 0.25 mg tablet^Take 1 tablet by mouth once daily as needed for up to 90 days.^Disp: 10 tablet^Rfl: 0 losartan (COZAAR) 25 mg tablet^Take 1 tablet by mouth once daily.^Disp: 90 tablet^Rfl: 3 tiZANidine (ZANAFLEX) 4 mg tablet^Take 1 tablet by mouth at bedtime as needed (muscle spasms).^Disp: 30 tablet^Rfl: 0 PARoxetine (PAXIL) 20 mg tablet^Take 1 tablet by mouth once daily.^Disp: 90 tablet^Rfl: 3 spironolactone (ALDACTONE) 25 mg tablet^Take 1 tablet by mouth once daily.^Disp: 90 tablet^Rfl: 3 pravastatin (PRAVACHOL) 10 mg tablet^Take 1 tablet by mouth once daily.^Disp: 90 tablet^Rfl: 3 levothyroxine (SYNTHROID) 100 mcg tablet^Take 1 tablet by mouth once daily.^Disp: 90 tablet^Rfl: 3 dilTIAZem CD (CARTIA XT) 180 mg 24 hr capsule^Take 1 capsule by mouth once daily.^Disp: 90 capsule^Rfl: 3 ibuprofen 200 mg ORAL tablet^Take 1-2 tablet's) every four(4) to six(6) hours as needed for pain with food^Disp: ^Rfl: 0 Cholecalciferol, Vitamin D3, 50 mcg (2,000 unit) cap^Take 1 capsule by mouth one time a week.^Disp: ^Rfl: (Patient taking differently: Take 2,000 Units by mouth every other day in the morning.) REVIEW OF SYSTEMS: Review of Systems Constitutional: Negative for chills, fever, malaise/fatigue and weight loss. HENT: Negative for hearing loss and sore throat. Eyes: Negative for blurred vision and double vision. Respiratory: Negative. Cardiovascular: Positive for palpitations. Gastrointestinal: Negative. Genitourinary: Negative for dysuria, frequency, hematuria and urgency. Musculoskeletal: Positive for joint pain. Skin: Negative. Neurological: Negative for dizziness, seizures, loss of consciousness, weakness and headaches. Endo/Heme/Allergies: Negative for environmental allergies. Does not bruise/bleed easily. Psychiatric/Behavioral: Negative for depression. PHYSICAL EXAMINATION: BP 128/64 (BP Site: Right Arm, BP Position: Sitting, BP Cuff Size: Large Adult) Pulse 60 Wt 85.3 kg (188 lb) BMI 32.52 kg/m General: Pleasant elderly woman sitting appears comfortable in no apparent distress. She is alert and oriented x3 HEENT: Carotid upstrokes are brisk bilaterally without bruits. No JVD appreciated. Pulmonary: Lungs are clear no rales, wheezes, rhonchi Cardiovascular: Normal S1, S2 with regular rate and rhythm. No murmurs, rubs, or gallops appreciated. Extremities: Warm, well-perfused, no lower extremity edema. 2+ distal pulses. CARDIOVASCULAR MEDICINE TESTING: ECG in the office 07/06/2020: Sinus rhythm normal axis and intervals. No significant ST or T wave changes; normal ECG Echocardiogram 11/25/2021: - Exam indication: Palpitations - The left ventricle is normal in size. Left ventricular systolic function is normal. EF = 66 5% (2D biplane) Indeterminate left ventricular diastolic dysfunction. - The right ventricle is normal in size. Right ventricular systolic function is normal. - The left atrial cavity is mildly dilated. - There are no significant valvular abnormalities. - Exam was compared with the prior echocardiographic exam performed on 05/21/2018, no significant change. Echocardiogram 05/21/2018: - Exam indication: SVT - The left ventricle is normal in size. Left ventricular systolic function is normal. EF = 68 5% (2D biplane) Grade I left ventricular diastolic dysfunction. - The right ventricle is normal in size. Right ventricular systolic function is normal. - The left atrial cavity is mildly dilated. - No apparent valvular heart disease by limitations of this study. 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 IMPRESSION: Ms. Ledesma is a 81 year old woman with a history of hypertension, dyslipidemia, palpitations secondary to PVCs who presents for routine cardiology follow-up. PLAN AND RECOMMENDATIONS: 1. SVT (supraventricular tachycardia) (HCC) - ICD9: 427.89, ICD10: I47.1 (primary diagnosis) Patient doing well with minimal symptoms concerning for SVT. 2. Palpitations - ICD9: 785.1, ICD10: R00.2 Most of her symptoms have resolved since last office visit 3. Essential hypertension - ICD9: 401.9, ICD10: I10 Adequate control on current regimen. 4. Mixed hyperlipidemia - ICD9: 272.2, ICD10: E78.2 Maintained on pravastatin 10 mg daily. Fasting blood work from March 2022 was reviewed. LDL cholesterol 94 mg/dL. David Cantu MD documented in this encounter [facility] 05-16-2022 Note HNO ID: [id number] Author: Selma Lopez, PT Service: ? Author Type: Physical Therapist Type: Progress Notes Filed: 05/16/2022 3:37 PM Note Text: Episode Visit Count: 4 Therapist That Will Accept/Oversee The Plan Of Care: Selma Lopez Start of Care Date: 04/27/22 Onset Date: 01/27/22 Plan of Care Certification Date: 04/27/22 Next Certification Due Date: 06/01/22 REHABILITATION AND SPORTS THERAPY PHYSICAL THERAPY DISCONTINUANCE OF CARE PLAN OF CARE UPDATE: Assessment: Evelyn Ledesma is discontinued from Physical Therapy services due to goal achievement.. Patient was seen for 4 visits from Start of Care Date: 04/27/22 to 05/16/2022 and treatment included: Therapeutic exercise and Self-half-way management. Goals for Episode of Care: created on 04/27/22 through 06/08/22 Goals updated on 05/16/2022. Independent in a Home Exercise Program. -- MET Patient will decrease pain to 1-2/10 with functional activities to allow patient to improve tolerance for ADLs. -- MET Restore pain free cervical ROM to 30 degrees of side flexion each side or greater and 60 degrees of left rotation to allow for improved mobility with less limitation due to pain. -- MET Drive with no aggravation of pain/symptoms. -- MET Sleep throughout the night without pain/symptoms. -- MET Maintain proper sitting posture throughout the session to allow for reduced symptoms. -- MET Patient Goals: reduce neck pain with ADLs and improve mobility of cervical spine -- MET SUBJECTIVE: Patient Reason for Visit: Pt. reports all her goals have been met and she has not pain today. She would like for this to be her last visit because she is doing very well.. Pain: Pain Pain Level: 0 Pain Location: Neck - Left Frequency: With movement Post Treatment Pain Post Treatment Pain Level: 0 Post Treatment Pain Location: Neck - Left PROMIS Scales Higher is Better 04/26/2022 Phys Func - Score 36 (moderate dysfunction) Phys Func - Percentile 8 % Self-Eff Symptom - Score 49 (Average) Self-Eff Symptom - Percentile 46 % T-scores: mean of general population = 50. 5 points is clinically meaningfully difference Percentiles provide an indication of how the patient's score ranks in relation to the general population. Higher percentile rankings indicate better function/quality of life. 50th percentile is the average of the general population and indicates half of respondents had a worse score. OBJECTIVE MEASURES WITH LEVEL OF FUNCTION: Cervical Spine ROM Cervical Side-Bend Right AROM (degrees): 33 Degrees Cervical Side-Bend Left AROM (degrees) : 40 Degrees Cervical Rotation Right AROM (degrees) : 78 Degrees Cervical Rotation Left AROM (degrees) : 78 Degrees TREATMENT: Therapeutic Exercise: 2: seated towel W isometric hold 5x30 sec 3: seated scapular retraction 2x15 (optional HEP) 6: seated L cervical rotation snag with towel 2x10, 10 sec hold to the L 7: seated cervical retraction with extension snag using towel at lower cervical spine 2x10, 10 sec hold Skilled Intervention: Patient was educated in proper exercise technique and purpose for exercises. Skilled judgment was provided in selection of appropriate interventions. Correct performance of therapeutic exercises was facilitated with verbal and visual cuing. Additional time necessary for assessing progress toward goals due to discharge today. Educated patient on rationale for performing exercises in regards to decreasing fatigue , increase ease of ADL, and ROM and function . Patient education as noted. Billing Therapeutic Exercise Treatment Minutes: 30 Total Treatment Time Minutes (timed/untimed): 30 Selma Lopez, PT [facility] 05-16-2022 History of Present illness Narrative Episode Visit Count: 4 Therapist That Will Accept/Oversee The Plan Of Care: Selma Lopez Start of Care Date: 04/27/22 Onset Date: 01/27/22 Plan of Care Certification Date: 04/27/22 Next Certification Due Date: 06/01/22 REHABILITATION AND SPORTS THERAPY PHYSICAL THERAPY DISCONTINUANCE OF CARE PLAN OF CARE UPDATE: Assessment: Evelyn Ledesma is discontinued from Physical Therapy services due to goal achievement.. Patient was seen for 4 visits from Start of Care Date: 04/27/22 to 05/16/2022 and treatment included: Therapeutic exercise and Self-half-way management. Goals for Episode of Care: created on 04/27/22 through 06/08/22 Goals updated on 05/16/2022. Independent in a Home Exercise Program. -- MET Patient will decrease pain to 1-2/10 with functional activities to allow patient to improve tolerance for ADLs. -- MET Restore pain free cervical ROM to 30 degrees of side flexion each side or greater and 60 degrees of left rotation to allow for improved mobility with less limitation due to pain. -- MET Drive with no aggravation of pain/symptoms. -- MET Sleep throughout the night without pain/symptoms. -- MET Maintain proper sitting posture throughout the session to allow for reduced symptoms. -- MET Patient Goals: reduce neck pain with ADLs and improve mobility of cervical spine -- MET SUBJECTIVE: Patient Reason for Visit: Pt. reports all her goals have been met and she has not pain today. She would like for this to be her last visit because she is doing very well.. Pain: Pain Pain Level: 0 Pain Location: Neck - Left Frequency: With movement Post Treatment Pain Post Treatment Pain Level: 0 Post Treatment Pain Location: Neck - Left PROMIS Scales Higher is Better 04/26/2022 Phys Func - Score 36 (moderate dysfunction) Phys Func - Percentile 8 % Self-Eff Symptom - Score 49 (Average) Self-Eff Symptom - Percentile 46 % T-scores: mean of general population = 50. 5 points is clinically meaningfully difference Percentiles provide an indication of how the patient's score ranks in relation to the general population. Higher percentile rankings indicate better function/quality of life. 50th percentile is the average of the general population and indicates half of respondents had a worse score. OBJECTIVE MEASURES WITH LEVEL OF FUNCTION: Cervical Spine ROM Cervical Side-Bend Right AROM (degrees): 33 Degrees Cervical Side-Bend Left AROM (degrees) : 40 Degrees Cervical Rotation Right AROM (degrees) : 78 Degrees Cervical Rotation Left AROM (degrees) : 78 Degrees TREATMENT: Therapeutic Exercise: 2: seated towel W isometric hold 5x30 sec 3: seated scapular retraction 2x15 (optional HEP) 6: seated L cervical rotation snag with towel 2x10, 10 sec hold to the L 7: seated cervical retraction with extension snag using towel at lower cervical spine 2x10, 10 sec hold Skilled Intervention: Patient was educated in proper exercise technique and purpose for exercises. Skilled judgment was provided in selection of appropriate interventions. Correct performance of therapeutic exercises was facilitated with verbal and visual cuing. Additional time necessary for assessing progress toward goals due to discharge today. Educated patient on rationale for performing exercises in regards to decreasing fatigue , increase ease of ADL, and ROM and function . Patient education as noted. Billing Therapeutic Exercise Treatment Minutes: 30 Total Treatment Time Minutes (timed/untimed): 30 Selma Lopez PT documented in this encounter [facility] 05-10-2022 Note HNO ID: [id number] Author: Selma Lopez PT Service: ? Author Type: Physical Therapist Type: Progress Notes Filed: 05/10/2022 6:24 PM Note Text: Episode Visit Count: 3 Therapist That Will Accept/Oversee The Plan Of Care: Selma Lopez Start of Care Date: 04/27/22 Onset Date: 01/27/22 Plan of Care Certification Date: 04/27/22 Next Certification Due Date: 06/01/22 REHABILITATION AND SPORTS THERAPY PHYSICAL THERAPY TREATMENT NOTE ASSESSMENT: Evelyn Ledesma tolerated the session with decreased symptoms. She demonstrated improvements in cervical side flexion and rotation each side but continues to have tightness and limited AROM with R side flexion. The patient will continue to benefit from ongoing skilled physical therapy to progress toward set goals. PLAN FOR NEXT VISIT: assess AROM and symptoms with side flexion to the R SUBJECTIVE: Patient Reason for Visit: She only has some L side neck stiffness in the morning when she wakes up. This improves with movement throughout the day. Pt. is completing her exercises once daily and this is managing her symptoms well. Pain: Pain Pain Level: 0 Pain Location: Neck - Left Frequency: With movement Post Treatment Pain Post Treatment Pain Level: Better Post Treatment Pain Location: Neck - Left Post Treatment Symptoms: tightness with side flexion R OBJECTIVE MEASURES WITH LEVEL OF FUNCTION: Cervical Spine ROM Cervical Side-Bend Right AROM (degrees): 35 Degrees ( some pulling L side) Cervical Side-Bend Left AROM (degrees) : 31 Degrees Cervical Rotation Right AROM (degrees) : 75 Degrees Cervical Rotation Left AROM (degrees) : 75 Degrees TREATMENT: Therapeutic Exercise: 1: seated cervical retraction 2x10 towel at posterior neck for over pressure 2: *seated towel W isometric hold 5x30 sec 3: *seated scapular retraction 2x15 (optional HEP) 4: cervical side flexion R 1x10 5: cervical rotation 1x each side for measurement 6: scapular circles forward and reverse 2x15 each direction 7: seated B towel shoulder ER isometric at 0 abd 3x30 sec 8: seated cervical retraction 2x10 Skilled Intervention: Patient was educated in proper exercise technique and purpose for exercises. Reviewed and educated patient on additions/changes for home exercise program as above (*). Skilled judgment was provided in selection of appropriate interventions. Correct performance of therapeutic exercises was facilitated with verbal, visual, and tactile cuing. Educated patient on rationale for performing exercises in regards to decreasing fatigue , increase ease of ADL, and ROM and function . Patient education as noted. Billing Therapeutic Exercise Treatment Minutes: 40 Total Treatment Time Minutes (timed/untimed): 40 Selma Lopez, PT [facility] 05-10-2022 History of Present illness Narrative Episode Visit Count: 3 Therapist That Will Accept/Oversee The Plan Of Care: Selma Lopez Start of Care Date: 04/27/22 Onset Date: 01/27/22 Plan of Care Certification Date: 04/27/22 Next Certification Due Date: 06/01/22 REHABILITATION AND SPORTS THERAPY PHYSICAL THERAPY TREATMENT NOTE ASSESSMENT: Evelyn Ledesma tolerated the session with decreased symptoms. She demonstrated improvements in cervical side flexion and rotation each side but continues to have tightness and limited AROM with R side flexion. The patient will continue to benefit from ongoing skilled physical therapy to progress toward set goals. PLAN FOR NEXT VISIT: assess AROM and symptoms with side flexion to the R SUBJECTIVE: Patient Reason for Visit: She only has some L side neck stiffness in the morning when she wakes up. This improves with movement throughout the day. Pt. is completing her exercises once daily and this is managing her symptoms well. Pain: Pain Pain Level: 0 Pain Location: Neck - Left Frequency: With movement Post Treatment Pain Post Treatment Pain Level: Better Post Treatment Pain Location: Neck - Left Post Treatment Symptoms: tightness with side flexion R OBJECTIVE MEASURES WITH LEVEL OF FUNCTION: Cervical Spine ROM Cervical Side-Bend Right AROM (degrees): 35 Degrees ( some pulling L side) Cervical Side-Bend Left AROM (degrees) : 31 Degrees Cervical Rotation Right AROM (degrees) : 75 Degrees Cervical Rotation Left AROM (degrees) : 75 Degrees TREATMENT: Therapeutic Exercise: 1: seated cervical retraction 2x10 towel at posterior neck for over pressure 2: *seated towel W isometric hold 5x30 sec 3: *seated scapular retraction 2x15 (optional HEP) 4: cervical side flexion R 1x10 5: cervical rotation 1x each side for measurement 6: scapular circles forward and reverse 2x15 each direction 7: seated B towel shoulder ER isometric at 0 abd 3x30 sec 8: seated cervical retraction 2x10 Skilled Intervention: Patient was educated in proper exercise technique and purpose for exercises. Reviewed and educated patient on additions/changes for home exercise program as above (*). Skilled judgment was provided in selection of appropriate interventions. Correct performance of therapeutic exercises was facilitated with verbal, visual, and tactile cuing. Educated patient on rationale for performing exercises in regards to decreasing fatigue , increase ease of ADL, and ROM and function . Patient education as noted. Billing Therapeutic Exercise Treatment Minutes: 40 Total Treatment Time Minutes (timed/untimed): 40 Selma Lopez PT documented in this encounter [facility] 05-10-2022 Miscellaneous Notes Encounter being closed in error as created with an invalid department. New encounter created and routed to the authorizing provider. Nichole Ireland I tried to refill this too and am getting the same alert. Something wrong with escript and PDMP--cannot escript since no address on file and cannot open PDMP since facility state: Can't be blank, is not a valid state code Will have to try later Patient requesting medication pended to encounter. Patient would like medications sent to [facility]. Please review and advise patient. Jackie Feliciano LPN documented in this encounter [facility] 05-10-2022 Miscellaneous Notes PDMP website checked and validated. All prescriptions have been APPROPRIATELY filled. No suspicious activity was identified. 05/10/2022 by Shari Head APRN.LEAK INSPECTOR Patient phones requesting refills as follows: Requested Prescriptions Pending Prescriptions Disp Refills ALPRAZolam (XANAX) 0.25 mg tablet 10 tablet 0 Sig: Take 1 tablet by mouth once daily as needed for up to 90 days. Please review and advise. Nichole Ireland documented in this encounter [facility] 05-09-2022 Miscellaneous Notes Patient requesting medication pended to encounter. Patient would like medications sent to [facility] [place] [address] [address] [facility] [phone]. Please review and advise patient. Jackie Feliciano LPN documented in this encounter [facility] 05-04-2022 Note HNO ID: [id number] Author: Selma Lopez, PT Service: ? Author Type: Physical Therapist Type: Progress Notes Filed: 05/04/2022 3:42 PM Note Text: Episode Visit Count: 2 Therapist That Will Accept/Oversee The Plan Of Care: Selma Lopez Start of Care Date: 04/27/22 Onset Date: 01/27/22 Plan of Care Certification Date: 04/27/22 Next Certification Due Date: 06/01/22 REHABILITATION AND SPORTS THERAPY PHYSICAL THERAPY TREATMENT NOTE ASSESSMENT: Evelyn Ledesma tolerated the session with decreased symptoms. She demonstrated improvements in cervical rotation to the L AROM to 60 degrees. The patient will continue to benefit from ongoing skilled physical therapy to progress toward set goals. PLAN FOR NEXT VISIT: Scapular stabilization strengthening SUBJECTIVE: Patient Reason for Visit: Pt. reports feeling crawling when doing the cervical rotation isometrics. Pt. did her HEP at least 1x/day. Patient Goals: reduce neck pain with ADLs and improve mobility of cervical spine Pain: Pain Pain Location: Neck - Left Frequency: With movement Post Treatment Pain Post Treatment Pain Level: Better Post Treatment Pain Location: Neck - Left Post Treatment Symptoms: only tightness felt with rotation to the L OBJECTIVE MEASURES WITH LEVEL OF FUNCTION: Cervical Spine ROM Cervical Side-Bend Right AROM (degrees): 20 Degrees Cervical Side-Bend Left AROM (degrees) : 28 Degrees Cervical Rotation Right AROM (degrees) : 65 Degrees Cervical Rotation Left AROM (degrees) : 60 Degrees (54 degrees at start of visit) TREATMENT: Therapeutic Exercise: 1: seated cervical retraction 1x10 2: seated cervical rotation 5x each direction, improved to 60 degrees of rotation L by end of visit following stretching. 3: seated cervical retraction occiput into ball on wall 2x10 4: seated cervical retraction occiput into ball on wall 2x10 with rotation R and L 5: seated cervical rotation 2x10 each direction, with upright head posture, without the ball verbal cues to maintain upright posture 6: *seated L cervical rotation snag with towel 2x10 to the L 2-3x/day 7: *seated cervical retraction with extension snag using towel at lower cervical spine 2x10 2-3x/day 8: scapular circles fwd and rev 1x10 each direction 9: *dc cervical rotation L isometrics Skilled Intervention: Patient was educated in proper exercise technique and purpose for exercises. Reviewed and educated patient on additions/changes for home exercise program as above (*). Skilled judgment was provided in selection of appropriate interventions. Provided written instruction for home exercise program to facilitate proper performance and compliance. Correct performance of therapeutic exercises was facilitated with verbal, visual, and tactile cuing. Educated patient on rationale for performing exercises in regards to decreasing fatigue , increase ease of ADL, and ROM and function . Patient education as noted. Billing Therapeutic Exercise Treatment Minutes: 40 Total Treatment Time Minutes (timed/untimed): 40 Selma Lopez, PT [facility] 05-04-2022 History of Present illness Narrative Episode Visit Count: 2 Therapist That Will Accept/Oversee The Plan Of Care: Selma Lopez Start of Care Date: 04/27/22 Onset Date: 01/27/22 Plan of Care Certification Date: 04/27/22 Next Certification Due Date: 06/01/22 REHABILITATION AND SPORTS THERAPY PHYSICAL THERAPY TREATMENT NOTE ASSESSMENT: Evelyn Ledesma tolerated the session with decreased symptoms. She demonstrated improvements in cervical rotation to the L AROM to 60 degrees. The patient will continue to benefit from ongoing skilled physical therapy to progress toward set goals. PLAN FOR NEXT VISIT: Scapular stabilization strengthening SUBJECTIVE: Patient Reason for Visit: Pt. reports feeling crawling when doing the cervical rotation isometrics. Pt. did her HEP at least 1x/day. Patient Goals: reduce neck pain with ADLs and improve mobility of cervical spine Pain: Pain Pain Location: Neck - Left Frequency: With movement Post Treatment Pain Post Treatment Pain Level: Better Post Treatment Pain Location: Neck - Left Post Treatment Symptoms: only tightness felt with rotation to the L OBJECTIVE MEASURES WITH LEVEL OF FUNCTION: Cervical Spine ROM Cervical Side-Bend Right AROM (degrees): 20 Degrees Cervical Side-Bend Left AROM (degrees) : 28 Degrees Cervical Rotation Right AROM (degrees) : 65 Degrees Cervical Rotation Left AROM (degrees) : 60 Degrees (54 degrees at start of visit) TREATMENT: Therapeutic Exercise: 1: seated cervical retraction 1x10 2: seated cervical rotation 5x each direction, improved to 60 degrees of rotation L by end of visit following stretching. 3: seated cervical retraction occiput into ball on wall 2x10 4: seated cervical retraction occiput into ball on wall 2x10 with rotation R and L 5: seated cervical rotation 2x10 each direction, with upright head posture, without the ball verbal cues to maintain upright posture 6: *seated L cervical rotation snag with towel 2x10 to the L 2-3x/day 7: *seated cervical retraction with extension snag using towel at lower cervical spine 2x10 2-3x/day 8: scapular circles fwd and rev 1x10 each direction 9: *dc cervical rotation L isometrics Skilled Intervention: Patient was educated in proper exercise technique and purpose for exercises. Reviewed and educated patient on additions/changes for home exercise program as above (*). Skilled judgment was provided in selection of appropriate interventions. Provided written instruction for home exercise program to facilitate proper performance and compliance. Correct performance of therapeutic exercises was facilitated with verbal, visual, and tactile cuing. Educated patient on rationale for performing exercises in regards to decreasing fatigue , increase ease of ADL, and ROM and function . Patient education as noted. Billing Therapeutic Exercise Treatment Minutes: 40 Total Treatment Time Minutes (timed/untimed): 40 Selma Lopez PT documented in this encounter [facility] 04-27-2022 Note HNO ID: [id number] Author: Selma Lopez PT Service: ? Author Type: Physical Therapist Type: Progress Notes Filed: 04/27/2022 5:25 PM Note Text: Episode Visit Count: 1 Therapist That Will Accept/Oversee The Plan Of Care: Selma Lopez Start of Care Date: 04/27/22 Onset Date: 01/27/22 Plan of Care Certification Date: 04/27/22 Next Certification Due Date: 06/01/22 Patient Identified by Name and Date of : Yes REHABILITATION AND SPORTS THERAPY PHYSICAL THERAPY EVALUATION PLAN OF CARE: Assessment: Evelyn Ledesma presents with diagnosis of degenerative disc disease of the cervical spine that interferes with sleeping (turning and side flexion) . She presents with impairments in ADL's, flexibility, independence in exercise, joint mobility, overall function, patient reported outcome measures, posture, range of motion, strength, symptom management, and tissue tenderness. PROMIS? (Patient-Reported Outcomes Measurement Information System) scores were reviewed and physical function domain identified as a rehabilitation concern. Prognosis for therapy is Good due to: within-session changes, positive past response to therapy, good overall health status, current objective clinical presentation, good support system/ coping skills, acuteness of condition . She will benefit from skilled therapy services to meet the goals established for this plan of care as noted below. Goals for Episode of Care: created on 04/27/22 through 06/08/22 Independent in a Home Exercise Program. Patient will decrease pain to 1-2/10 with functional activities to allow patient to improve tolerance for ADLs. Restore pain free cervical ROM to 30 degrees of side flexion each side or greater and 60 degrees of left rotation to allow for improved mobility with less limitation due to pain. Drive with no aggravation of pain/symptoms. Sleep throughout the night without pain/symptoms. Maintain proper sitting posture throughout the session to allow for reduced symptoms. Patient Goals: reduce neck pain with ADLs and improve mobility of cervical spine Planned Interventions, Frequency, and Duration: Current Frequency: 2x/week Duration: 6 weeks Total Number of Visits Planned: 12 Planned Treatment Interventions: Therapeutic exercise (74677), Neuromuscular re-education (91391), Manual therapy (78088), Therapeutic activities (58501), Self-half-way management (18675), Patient/Family/Caregiver Education, Gait Training (27883) PLAN FOR NEXT VISIT: assess L cervical rotation AROM and symptom response to repeated isometrics as well as postural education Patient demonstrates good understanding of plan of care and treatment. The above goals and plan of care were discussed and agreed upon by patient/family. SUBJECTIVE: Evelyn Ledesma is a 81 year old female seen today for left neck pain since she woke with 02/11/22 without specific known cause or injury. She has seen chiropractor and had adjustments and ultrasound and is mostly improved, pt. reports (90% improvement.) Continues to have difficulty with turning the neck left. Pt. has tried using a neck roll in her pillow case without relief. Heat is helpful, ice makes it worse. She has tried stretches to improve cervical rotation. 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 Cervical Arterial Dysfunction Clinical Reasoning: No identified risk factors Cervical Myelopathy: Age > 45 yo Cervical Myelopathy Diagnostic Rule: Proceed with caution Red Flags - Cervical Cancer Red Flags: Age >50 or <20 Cancer Clinical Reasoning: Proceed with caution Infection Clinical Reasoning: No identified risk factors. Cervical Arterial Dysfunction Clinical Reasoning: No identified risk factors Cervical Myelopathy: Age > 45 yo Cervical Myelopathy Diagnostic Rule: Proceed with caution Spine History Symptoms Location at Onset: Neck Symptoms Since Onset: Improving Pain is Worse Always: Turning Pain is Better Sometimes: Rest Pain: Pain Pain Level: 4 Pain Location: Neck - Left Description: Aching Frequency: With movement Post Treatment Pain Post Treatment Pain Location: Neck - Left PROMIS Scales Higher is Better 04/26/2022 Phys Func - Score 36 (moderate dysfunction) Phys Fu (more content not included)... [facility] 04-27-2022 History of Present illness Narrative Episode Visit Count: 1 Therapist That Will Accept/Oversee The Plan Of Care: Selma Lopez Start of Care Date: 04/27/22 Onset Date: 01/27/22 Plan of Care Certification Date: 04/27/22 Next Certification Due Date: 06/01/22 Patient Identified by Name and Date of : Yes REHABILITATION AND SPORTS THERAPY PHYSICAL THERAPY EVALUATION PLAN OF CARE: Assessment: Evelyn Ledesma presents with diagnosis of degenerative disc disease of the cervical spine that interferes with sleeping (turning and side flexion) . She presents with impairments in ADL's, flexibility, independence in exercise, joint mobility, overall function, patient reported outcome measures, posture, range of motion, strength, symptom management, and tissue tenderness. PROMIS (Patient-Reported Outcomes Measurement Information System) scores were reviewed and physical function domain identified as a rehabilitation concern. Prognosis for therapy is Good due to: within-session changes, positive past response to therapy, good overall health status, current objective clinical presentation, good support system/ coping skills, acuteness of condition . She will benefit from skilled therapy services to meet the goals established for this plan of care as noted below. Goals for Episode of Care: created on 04/27/22 through 06/08/22 Independent in a Home Exercise Program. Patient will decrease pain to 1-2/10 with functional activities to allow patient to improve tolerance for ADLs. Restore pain free cervical ROM to 30 degrees of side flexion each side or greater and 60 degrees of left rotation to allow for improved mobility with less limitation due to pain. Drive with no aggravation of pain/symptoms. Sleep throughout the night without pain/symptoms. Maintain proper sitting posture throughout the session to allow for reduced symptoms. Patient Goals: reduce neck pain with ADLs and improve mobility of cervical spine Planned Interventions, Frequency, and Duration: Current Frequency: 2x/week Duration: 6 weeks Total Number of Visits Planned: 12 Planned Treatment Interventions: Therapeutic exercise (16121), Neuromuscular re-education (64880), Manual therapy (34542), Therapeutic activities (07444), Self-half-way management (97409), Patient/Family/Caregiver Education, Gait Training (39400) PLAN FOR NEXT VISIT: assess L cervical rotation AROM and symptom response to repeated isometrics as well as postural education Patient demonstrates good understanding of plan of care and treatment. The above goals and plan of care were discussed and agreed upon by patient/family. SUBJECTIVE: Evelyn Ledesma is a 81 year old female seen today for left neck pain since she woke with 02/11/22 without specific known cause or injury. She has seen chiropractor and had adjustments and ultrasound and is mostly improved, pt. reports (90% improvement.) Continues to have difficulty with turning the neck left. Pt. has tried using a neck roll in her pillow case without relief. Heat is helpful, ice makes it worse. She has tried stretches to improve cervical rotation. 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 Cervical Arterial Dysfunction Clinical Reasoning: No identified risk factors Cervical Myelopathy: Age > 45 yo Cervical Myelopathy Diagnostic Rule: Proceed with caution Red Flags - Cervical Cancer Red Flags: Age >50 or <20 Cancer Clinical Reasoning: Proceed with caution Infection Clinical Reasoning: No identified risk factors. Cervical Arterial Dysfunction Clinical Reasoning: No identified risk factors Cervical Myelopathy: Age > 45 yo Cervical Myelopathy Diagnostic Rule: Proceed with caution Spine History Symptoms Location at Onset: Neck Symptoms Since Onset: Improving Pain is Worse Always: Turning Pain is Better Sometimes: Rest Pain: Pain Pain Level: 4 Pain Location: Neck - Left Description: Aching Frequency: With movement Post Treatment Pain Post Treatment Pain Location: Neck - Left PROMIS Scales Higher is Better 04/26/2022 Phys Func - Score 36 (moderate dysfunction) Phys Func - Percentile 8 % Self-Eff Symptom - Score 49 (Average) Self-Eff Symptom - Percentile 46 % T-scores: mean of general population = 50. 5 points is clinically meaningfully difference Percentiles provide an indication of how the patient's score ranks in relation to the general population. Higher percentile rankings indicate better function/quality of life. 50th percentile is the average of the general population and indicates half of respondents had a worse score. OBJECTIVE MEASURES WITH LEVEL OF FUNCTION: Posture / Alignment Posture: Forward head, Increased thoracic kyphosis Effects of Posture Correction: improves Sensation - Cervical Spine Cervical Spine Sensation: Grossly Intact Cervical Spine ROM Cervical ROM : Limitation AROM, Measurement AROM Cervical Protrusion AROM: Normal Cervical Retraction AROM: Normal Cervical Flexion AROM: Normal Cervical Extension AROM: Normal Cervical Side-Bend Right AROM: Major limitation, Pain during movement Cervical Side-Bend Right AROM (degrees): 21 Degrees Cervical Side-Bend Left AROM: Major limitation, Decreased pain Cervical Side-Bend Left AROM (degrees) : 21 Degrees Cervical Rotation Right AROM (degrees) : 60 Degrees Cervical Rotation Left AROM (degrees) : 46 Degrees (improved to 48 degrees following isometrics L rotation) Spine Joint Mobility Spine Joint Mobility : Cervical/Thoracic Joint Mobility - C2: Hypomobile Joint Mobility - C3: Hypomobile Joint Mobility - C4: WNL Joint Mobility - C5: WNL Joint Mobility - C6: Hypomobile (tenderness) Joint Mobility - C7: Hypomobile (tenderness) Education: Education Learning Preferences: Demonstration, Explanation, Performance, Printed Materials Barriers: None Learning/educational needs: Home exercise program, Plan of Care, Posture Education Provided: Yes, see treatment interventions for education provided Education Provided To: Patient Education Mode/Type: Demonstration, Explanation/Discussion, Literature/Printed Materials, Performance Response to Education/Teach Back: States/Identifies, Return Demonstration TREATMENT: PT Treatment Interventions: Therapeutic Exercise, Self-Intermediate Management Evaluation Therapeutic Exercise: 1: seated cervical retraction 1x5 2: *seated cervical rotation L isometric into hand 5 sets of 10 sec hold, 3 times a day 3: cervical side flexion R and L with 15 second hold each side Skilled Intervention: Patient was educated in proper exercise technique and purpose for exercises. Reviewed and educated patient on additions/changes for home exercise program as above (*). Skilled judgment was provided in selection of appropriate interventions. Provided written instruction for home exercise program to facilitate proper performance and compliance. Correct performance of therapeutic exercises was facilitated with verbal, visual, and tactile cuing. Educated patient on rationale for performing exercises in regards to increase ease of ADL and ROM and function . Patient education as noted. Self-Intermediate Management: 1: *postural awareness education 2: *discussed muscle guarding/spasm symptoms vs. pinched nerve symptom presentation 3: *discussed goals and normative values for cervical rotation Skilled Intervention: Skilled judgment in the selection of proper modification for activity of daily living/home management based on clinical presentation, deficits, and needs. Educated the patient regarding recommendations and provided written instruction to facilitate compliance. Provided written instruction for activities of daily living techniques to facilitate proper performance and compliance. Reviewed patient specific diagnosis in relation to activities of daily living/home management. Activity progression based on professional judgement. Moderate verbal cues for maintaining neutral spine alignment. Reviewed and educated patient on additions/changes for home program as noted above with an (*). Billing * Evaluation Low Complexity: 1 Unit Therapeutic Exercise Treatment Minutes: 10 Self-Care/Home Management Treatment Minutes: 15 Total Treatment Time Minutes (timed/untimed): 45 Selma Lopez PT documented in this encounter [facility] 04-08-2022 Note HNO ID: [id number] Author: Colleen Cardona APRN.[employer] Service: ? 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 Last seen by Philippe Ledbetter MD September 2021. Mammogram ordered. Seen by Dr Araujo 09/2021 for closed nondisplaced fracture of distal phalanx of left thumb. Thumb spica slint placed in . Subsequently seen by Dr Araujo 1220 orthopedic surgeon and aluminum finger splint with [employer] is Dr. Cantu. She was last seen November 08, 2021. Noted palpitations that seem different than her usual PVCs. Echocardiogram advised for further evaluation and consideration for repeat of Holter monitor. Noted if recurrent weakness in her legs consider alternate to pravastatin every other day. Today notes she has had left-sided neck pain since around [place] time. She has seen chiropractor and had adjustments and ultrasound and is mostly improved. Does continue with some deafness and discomfort on the left side of her neck. X-rays not completed. No medications prescribed. Notes typically drinking 2 glasses of wine per day.. Avoids sweets. Patient's last HgA1C was Hemoglobin A1C (%) Date Value 04/05/2022 5.8 09/30/2021 5.7 03/18/2021 5.8 11/30/2020 6.0 ) Hypothyroidism. She is doing well on her current dose of Synthroid. Does not see credit investigator. TSH Date Value 04/05/2022 0.760 mIU/L 09/30/2021 0.355 mIU/L 03/18/2021 2.460 uU/mL 08/04/2020 0.512 uU/mL ) HTN: Without report of headache, chest pain, palpitations, dyspnea, peripheral edema, orthopnea, fatigue and PND. Last 14 Encounter BP Readings: Date: BP: 04/08/2022 138/68 11/08/2021 118/64 10/22/2021 124/68 10/06/2021 122/68 09/04/2021 118/66 04/12/2021 118/52 03/15/2021 130/78 12/07/2020 148/64 08/06/2020 122/62 07/06/2020 148/62 03/19/2019 122/62 05/21/2018 138/70 04/01/2018 136/78 03/28/2018 138/78 Mood stable on current medication, no voiced complaints, SI or HI. She notes usual bowel habits most of the time, but has had 2 loose stools with some urgency over the last few months. Perhaps related to fast foods. No reported nausea vomiting abdominal pain constipation BRBPR black or tarry. Review of Systems Constitutional: Negative. Musculoskeletal: Positive for arthralgias and neck pain. Objective BP 138/68 Pulse 60 Resp 16 Wt 84.8 kg (187 lb) BMI 32.35 kg/m? Physical Exam Vitals and nursing note reviewed. Constitutional: Appearance: Normal appearance. HENT: Head: Normocephalic and atraumatic. Eyes: Conjunctiva/sclera: Conjunctivae normal. Neck: Thyroid: No thyromegaly or thyroid tenderness. Vascular: No carotid bruit. Comments: TTP lower cervical region on left, some decreased ROM neck Cardiovascular: Rate and Rhythm: Normal rate and regular rhythm. Pulses: Carotid pulses are 2+ on the right side and 2+ on the left side. Radial pulses are 2+ on the right side and 2+ on the left side. Heart sounds: Normal heart sounds. Pulmonary: Effort: Pulmonary effort is normal. Breath sounds: Normal breath sounds. Abdominal: General: Bowel sounds are normal. Palpations: Abdomen is soft. Musculoskeletal: Right lower leg: No edema. Left lower leg: No edema. Skin: General: Skin is warm. Neurological: General: No focal deficit present. Mental Status: She is alert and oriented to person, place, and time. Psychiatric: Mood and Affect: Mood normal. Behavior: Behavior normal. ALLERGIES Allergen Reactions Crestor [Rosuvastat* Myalgia muscle aches. Tolerates pravastatin every other day Lisinopril Cough Morphine Mental Status Change Naproxen Other: See Comments, GI Upset nausea Quinapril Cough Rofecoxib GI Upset Sulfa (Sulfonamide * Other: See Comments nausea PARoxetine (PAXIL) 20 mg tabletTake 1 tablet by mouth once daily.Disp: 90 tabletRfl: 3 spironolactone (ALDACTONE) 25 mg tabletTake 1 tablet by mouth once daily.Disp: 90 tabletRfl: 3 pravastatin (PRAVACHOL) 10 mg tabletTake 1 tablet by mouth once daily.Disp: 90 tabletRfl: 3 levothyroxine (SYNTHROID) 100 mcg tabletTake 1 tablet by mouth once daily.Disp: 90 tabletRfl: 3 losartan (COZAAR) 25 mg tabletTake 1 tablet by mouth once daily.Disp: 90 tabletRfl: 3 dilTIAZem CD (CARTIA XT) 180 mg 24 hr capsuleTake 1 capsule by mouth once daily.Disp: 90 capsuleRfl: 3 ibuprofen 200 mg ORAL tabletTake 1-2 tablet's) every four(4) to six(6) hours as needed for pain with foodDisp: Rfl: 0 tiZANidine (ZANAFLEX) 4 mg tabletTake 1 tablet by mouth at bedtime as needed (muscle spasms).Disp: 30 tabletRfl: 0 pravastatin (PRAVACHOL) 10 mg tabletTake 1 tablet by mouth daily at bedtime.Disp: 30 tabletRfl (more content not included)... [facility] 04-08-2022 Instructions Colleen Cardona APRN.CNS - 04/08/2022 1:52 PM EST Avoid fast foods to see if loose stools stop occuring. 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 Last seen by Philippe Ledbetter MD September 2021. Mammogram ordered. Seen by Dr Araujo 09/2021 for closed nondisplaced fracture of distal phalanx of left thumb. Thumb spica slint placed in . Subsequently seen by Dr Araujo 1220 orthopedic surgeon and aluminum finger splint with [employer] is Dr. Cantu. She was last seen November 08, 2021. Noted palpitations that seem different than her usual PVCs. Echocardiogram advised for further evaluation and consideration for repeat of Holter monitor. Noted if recurrent weakness in her legs consider alternate to pravastatin every other day. Today notes she has had left-sided neck pain since around [place] time. She has seen chiropractor and had adjustments and ultrasound and is mostly improved. Does continue with some deafness and discomfort on the left side of her neck. X-rays not completed. No medications prescribed. Notes typically drinking 2 glasses of wine per day.. Avoids sweets. Patient's last HgA1C was Hemoglobin A1C (%) Date Value 04/05/2022 5.8 09/30/2021 5.7 03/18/2021 5.8 11/30/2020 6.0 ) Hypothyroidism. She is doing well on her current dose of Synthroid. Does not see credit investigator. TSH Date Value 04/05/2022 0.760 mIU/L 09/30/2021 0.355 mIU/L 03/18/2021 2.460 uU/mL 08/04/2020 0.512 uU/mL ) HTN: Without report of headache, chest pain, palpitations, dyspnea, peripheral edema, orthopnea, fatigue and PND. Last 14 Encounter BP Readings: Date: BP: 04/08/2022 138/68 11/08/2021 118/64 10/22/2021 124/68 10/06/2021 122/68 09/04/2021 118/66 04/12/2021 118/52 03/15/2021 130/78 12/07/2020 148/64 08/06/2020 122/62 07/06/2020 148/62 03/19/2019 122/62 05/21/2018 138/70 04/01/2018 136/78 03/28/2018 138/78 Mood stable on current medication, no voiced complaints, SI or HI. She notes usual bowel habits most of the time, but has had 2 loose stools with some urgency over the last few months. Perhaps related to fast foods. No reported nausea vomiting abdominal pain constipation BRBPR black or tarry. Review of Systems Constitutional: Negative. Musculoskeletal: Positive for arthralgias and neck pain. Objective BP 138/68 Pulse 60 Resp 16 Wt 84.8 kg (187 lb) BMI 32.35 kg/m Physical Exam Vitals and nursing note reviewed. Constitutional: Appearance: Normal appearance. HENT: Head: Normocephalic and atraumatic. Eyes: Conjunctiva/sclera: Conjunctivae normal. Neck: Thyroid: No thyromegaly or thyroid tenderness. Vascular: No carotid bruit. Comments: TTP lower cervical region on left, some decreased ROM neck Cardiovascular: Rate and Rhythm: Normal rate and regular rhythm. Pulses: Carotid pulses are 2+ on the right side and 2+ on the left side. Radial pulses are 2+ on the right side and 2+ on the left side. Heart sounds: Normal heart sounds. Pulmonary: Effort: Pulmonary effort is normal. Breath sounds: Normal breath sounds. Abdominal: General: Bowel sounds are normal. Palpations: Abdomen is soft. Musculoskeletal: Right lower leg: No edema. Left lower leg: No edema. Skin: General: Skin is warm. Neurological: General: No focal deficit present. Mental Status: She is alert and oriented to person, place, and time. Psychiatric: Mood and Affect: Mood normal. Behavior: Behavior normal. ALLERGIES Allergen Reactions Crestor [Rosuvastat* Myalgia muscle aches. Tolerates pravastatin every other day Lisinopril Cough Morphine Mental Status Change Naproxen Other: See Comments, GI Upset nausea Quinapril Cough Rofecoxib GI Upset Sulfa (Sulfonamide * Other: See Comments nausea PARoxetine (PAXIL) 20 mg tablet^Take 1 tablet by mouth once daily.^Disp: 90 tablet^Rfl: 3 spironolactone (ALDACTONE) 25 mg tablet^Take 1 tablet by mouth once daily.^Disp: 90 tablet^Rfl: 3 pravastatin (PRAVACHOL) 10 mg tablet^Take 1 tablet by mouth once daily.^Disp: 90 tablet^Rfl: 3 levothyroxine (SYNTHROID) 100 mcg tablet^Take 1 tablet by mouth once daily.^Disp: 90 tablet^Rfl: 3 losartan (COZAAR) 25 mg tablet^Take 1 tablet by mouth once daily.^Disp: 90 tablet^Rfl: 3 dilTIAZem CD (CARTIA XT) 180 mg 24 hr capsule^Take 1 capsule by mouth once daily.^Disp: 90 capsule^Rfl: 3 ibuprofen 200 mg ORAL tablet^Take 1-2 tablet's) every four(4) to six(6) hours as needed for pain with food^Disp: ^Rfl: 0 tiZANidine (ZANAFLEX) 4 mg tablet^Take 1 tablet by mouth at bedtime as needed (muscle spasms).^Disp: 30 tablet^Rfl: 0 pravastatin (PRAVACHOL) 10 mg tablet^Take 1 tablet by mouth daily at bedtime.^Disp: 30 tablet^Rfl: 11 ALPRAZolam (XANAX) 0.25 mg tablet^Take 1 tablet by mouth once daily as needed for up to 90 days.^Disp: 10 tablet^Rfl: 0 Cholecalciferol, Vitamin D3, 50 mcg (2,000 unit) cap^Take 1 capsule by mouth one time a week.^Disp: ^Rfl: (Patient taking differently: Take 2,000 Units by mouth every other day in the morning.) PAST MEDICAL HISTORY Diagnosis Date Allergic rhinitis, cause unspecified Allergic rhinitis Diarrhea Diverticulosis of colon (without mention of hemorrhage) Diverticulosis Diverticulosis of colon (without mention of hemorrhage) Dysmetabolic syndrome X Dysthymic disorder Depression (non-psychotic) External hemorrhoids without mention of complication Generalized osteoarthrosis, unspecified site Heart palpitations HTN (hypertension) Internal hemorrhoids without mention of complication Mitral valve disorders Mild leaking Obesity, unspecified Osteopenia Personal history of colonic polyps Colon polyps Personal history of 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 for papillary; radioactive iodine treatment X 2 in 2001 (for follicular) Snoring Unspecified essential hypertension Unspecified hemorrhoids without mention of complication Hemorrhoids Social History Tobacco Use Smoking status: Never Smokeless tobacco: Never Vaping Use Vaping Use: Never used Substance Use Topics Alcohol use: Yes Alcohol/week: 60.0 standard drinks Comment: two glasses wine a day Drug use: No Component Latest Ref Rng & Units 09/30/2021 04/05/2022 Protein, Total 6.3 - 8.0 g/dL 6.7 6.9 Albumin 3.9 - 4.9 g/dL 4.3 4.3 Calcium 8.5 - 10.2 mg/dL 9.3 9.1 Bilirubin, Total 0.2 - 1.3 mg/dL 0.4 0.7 Alkaline Phosphatase 34 - 123 U/L 99 98 AST 13 - 35 U/L 21 23 ALT 7 - 38 U/L 23 25 Glucose 74 - 99 mg/dL 103 (H) 128 (H) BUN 7 - 21 mg/dL 21 14 Creatinine 0.58 - 0.96 mg/dL 0.92 0.96 Sodium 136 - 144 mmol/L 141 141 Potassium 3.7 - 5.1 mmol/L 4.5 4.8 Chloride 97 - 105 mmol/L 107 (H) 106 (H) CO2 22 - 30 mmol/L 25 27 Anion Gap 9 - 18 mmol/L 9 8 (L) eGFR >=60 mL/min/1.73m 62 59 (L) WBC 3.70 - 11.00 k/uL 5.59 4.97 RBC 3.90 - 5.20 m/uL 4.33 4.35 Hemoglobin 11.5 - 15.5 g/dL 14.3 14.2 Hematocrit 36.0 - 46.0 % 44.6 44.1 MCV 80.0 - 100.0 fL 103.0 (H) 101.4 (H) MCH 26.0 - 34.0 pg 33.0 32.6 MCHC 30.5 - 36.0 g/dL 32.1 32.2 RDW-CV 11.5 - 15.0 % 13.0 12.9 Platelet Count 150 - 400 k/uL 295 304 MPV 9.0 - 12.7 fL 10.5 10.0 Absolute nRBC <0.01 k/uL <0.01 <0.01 Cholesterol, Total <200 mg/dL 183 175 Triglyceride <150 mg/dL 88 98 HDL Cholesterol >39 mg/dL 57 61 Non HDL Cholesterol <130 mg/dL 126 114 Fasting Time hrs 14 13 VLDL Cholesterol <30 mg/dL 18 20 TC:HDL Ratio <5.10 3.21 2.87 LDL Cholesterol <100 mg/dL 108 (H) 94 LDL:HDL Ratio <2.54 1.89 1.54 Hemoglobin A1C 4.3 - 5.6 % 5.7 (H) 5.8 (H) Estimated Average Glucose mg/dL 117 120 TSH 0.270 - 4.200 mIU/L 0.355 0.760 Free T4 0.9 - 1.7 ng/dL 1.4 1.3 Free T3 2.3 - 4.1 pg/mL 2.4 2.5 Vitamin D 25 Hydroxy 31.0 - 80.0 ng/mL 36.6 36.5 ASSESSMENT/PLAN: 1. IFG (impaired fasting glucose) - ICD9: 790.21, ICD10: R73.01 (primary diagnosis) Recommend avoiding excess carbohydrates in diet - HGB A1C 2. Mixed hyperlipidemia - ICD9: 272.2, ICD10: E78.2 Recommend she start taking rosuvastatin 5 mg once daily, she will let us know if any problems. Check labs in 3 months - LIPID PANEL, NONFASTING - COMP METABOLIC PANEL 3. Stress incontinence - ICD9: [id number], ICD10: N39.3 Provided with bladder retraining information, advise discontinue caffeine to see if this helps. She will let us know if not feeling improved with these measures 4. Postablative hypothyroidism - ICD9: 244.1, ICD10: E89.0 Continue current treatment unchanged for now, continue to monitor. 5. Essential hypertension - ICD9: 401.9, ICD10: I10 Currently well controlled, continue unchanged, continue to monitor 6. DDD cervical M50.30 Continue with chiropractor and ultrasound as needed. If not continuing to improve consider taking tizanidine at bedtime, cervical x-ray and we can refer to [facility] if needed. 7. Loose stools R19.5 She reports a couple of loose stools with urgency since last seen. May be related to fast foods. She will avoid fast foods and see if this resolves. If not, she will let us know. She notes that loose stools may be related to the time line where she started B vitamin supplement. 6 mo follow up Philippe Ledbetter MD. 6 mo follow up with yoni Cardona APRN.CNS Medical Decision Making: Problems: Moderate: 2+ stable chronic illnesses Data: Unique test(s) ordered: 3+ Risk: Moderate: Drug management Medical Decision Making Level: 4 - Moderate documented in this encounter [facility] 03-22-2022 Miscellaneous Notes Last OV 10/06/21 Next OV 04/08/22 Patient has been identified by name and date of : Yes Requested Prescriptions Pending Prescriptions Disp Refills PARoxetine (PAXIL) 20 mg tablet 90 tablet 3 Sig: Take 1 tablet by mouth once daily. spironolactone (ALDACTONE) 25 mg tablet 90 tablet 3 Sig: Take 1 tablet by mouth once daily. RX INSTRUCTIONS: Patient aware RX escripted to mail away pharmacy. No need to notify patient. Bethany Xavier Pss documented in this encounter [facility] 03-18-2022 Miscellaneous Notes Patient contacted and notified. Mily Isaac RN OK, filed. Patient calls and states that she has appointment with provider on 04/08/2022. Patient asking for lab orders to be placed. Please review and advise, Ann Ramirez RN documented in this encounter [facility] 01-31-2022 Miscellaneous Notes January 31, 2022 PID: [id number] Evelyn Foster Saida [address] [facility] [address] [place] [address] Dear Ms. Ledesma, We are pleased to inform you that the results of your recent breast imaging exam on 01/28/2022 are normal. Early detection of cancer is very important. We also understand recommendations regarding breast cancer screening are controversial. Please discuss with your primary care provider which strategy is best for you and whether a mammogram is right for you. Your imaging studies and report will be kept on file at [facility] as part of your permanent medical record and are available for your continuing care. Thank you for allowing us to help in meeting your health care needs. Sincerely, Dr. Murdock Interpreting Radiologist [facility] (Normal over 40) documented in this encounter [facility] 01-28-2022 Miscellaneous Notes Benign findings. 1 yr follow up documented in this encounter [facility] 12-30-2021 Miscellaneous Notes Evelyn called. She would like a refill on her pravastatin sent to [facility]. This is her new mail away pharmacy. She does not want automatic refills. Karen Edmond RN documented in this encounter [facility] 11-25-2021 Miscellaneous Notes Last appointment 10/06/21 Next appointment 04/08/22 Patient has been identified by name and date of : Yes Requested Prescriptions Pending Prescriptions Disp Refills levothyroxine (SYNTHROID) 100 mcg tablet 90 tablet 3 Sig: Take 1 tablet by mouth once daily. RX INSTRUCTIONS: Patient aware RX escripted to mail away pharmacy. No need to notify patient. Rebeka Simon documented in this encounter [facility] 11-08-2021 History of Present illness Narrative Images from the original note were not included. [facility] CARDIOLOGY Cardiology ([facility]) [address] [facility] [address] OUTPATIENT VISIT DATE 11/08/2021 PRIMARY CARE PHYSICIAN: Philippe Ledbetter [address] [place] [address] HISTORY OF PRESENT ILLNESS: Ms. Ledesma is a 81 year old woman with a history of hypertension, dyslipidemia and palpitations secondary to frequent PVCs who presents for routine follow-up. She reports that her blood pressures been well controlled on her current regimen. She has had no symptoms of lightheadedness or dizziness. Home blood pressure readings have typically been between 110-130 mmHg. She had 1 episode where she developed sudden onset seizure-like activity in her legs with severe shaking. She was not lightheaded or dizzy. However, she did lose her balance and fell to the floor. She has had no further episodes of shaking in her legs. She did have weakness and muscle soreness on pravastatin 10 mg daily and decrease to 10 mg every other day. She has not had symptoms concerning for CHF including PND, orthopnea, or lower extremity edema. PAST MEDICAL HISTORY Diagnosis Date Allergic rhinitis, cause unspecified Allergic rhinitis Diarrhea Diverticulosis of colon (without mention of hemorrhage) Diverticulosis Diverticulosis of colon (without mention of hemorrhage) Dysmetabolic syndrome X Dysthymic disorder Depression (non-psychotic) External hemorrhoids without mention of complication Generalized osteoarthrosis, unspecified site Heart palpitations HTN (hypertension) Internal hemorrhoids without mention of complication Mitral valve disorders Mild leaking Obesity, unspecified Osteopenia Personal history of colonic polyps Colon polyps Personal history of 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 for papillary; radioactive iodine treatment X 2 in 2001 (for follicular) Snoring Unspecified essential hypertension Unspecified hemorrhoids without mention of complication Hemorrhoids PAST SURGICAL HISTORY Procedure Laterality Date APPENDECTOMY CARPAL TUNNEL Left long ago Dr. Oakley COLONOSCOPY FLX DX W/COLLJ SPEC WHEN PFRMD 01/29/16 COLONOSCOPY W/BIOPSY SINGLE/MULTIPLE 11/14/07 LAPAROSCOPY SURG CHOLECYSTECTOMY 2003 Cholecystectomy, lap PAST SURGICAL HISTORY OF foot surgery left foot PAST SURGICAL HISTORY OF 2010 partial knee arthroplasty, right PAST SURGICAL HISTORY OF Left partial knee arthroplasty PAST SURGICAL HISTORY OF Bilateral cataract surgery THYROIDECTOMY TOTAL/COMPLETE 2001 history of thyroid cancer--follicular and papillary TOTAL ABDOMINAL HYSTERECT W/WO RMVL TUBE OVARY 1988 Hysterectomy, ROSS SOCIAL HISTORY Social History Tobacco Use Smoking status: Never Smokeless tobacco: Never Vaping Use Vaping Use: Never used Substance Use Topics Alcohol use: Yes Alcohol/week: 60.0 standard drinks Comment: two glasses wine a day Drug use: No FAMILY HISTORY Problem Relation Age of Onset Diabetes Mother Hypertension Mother Arthritis Sister osteo Arthritis Mother osteo other (abdominal aortic aneurysm [Other]) Father 64 Hypertension Sister ALLERGIES: ALLERGIES Allergen Reactions Accupril [Quinapril] Cough Crestor [Rosuvastat* Myalgia muscle aches. Tolerates pravastatin every other day Lisinopril Cough Morphine Mental Status Change Naprosyn [Naproxen] Other: See Comments nausea Sulfa (Sulfonamide * Other: See Comments nausea Vioxx [Rofecoxib] MEDICATIONS: mv-min/folic/vit K/lycop/coQ10 (DAILY MULTIVITAMIN ORAL) Take by mouth once daily. losartan (COZAAR) 25 mg tablet Take 1 tablet by mouth once daily. pravastatin (PRAVACHOL) 10 mg tablet Take 1 tablet by mouth daily at bedtime. PARoxetine (PAXIL) 20 mg tablet Take 1 tablet by mouth once daily. dilTIAZem CD (CARTIA XT) 180 mg 24 hr capsule Take 1 capsule by mouth once daily. spironolactone (ALDACTONE) 25 mg tablet Take 1 tablet by mouth once daily. levothyroxine (SYNTHROID) 100 mcg tablet Take 1 tablet by mouth once daily. Cholecalciferol, Vitamin D3, 50 mcg (2,000 unit) cap Take 1 capsule by mouth one time a week. (Patient taking differently: Take 2,000 Units by mouth every other day in the morning.) ibuprofen 200 mg ORAL tablet Take 1-2 tablet's) every four(4) to six(6) hours as needed for pain with food ALPRAZolam (XANAX) 0.25 mg tablet Take 1 tablet by mouth once daily as needed for up to 90 days. REVIEW OF SYSTEMS: Review of Systems Constitutional: Negative for chills, fever, malaise/fatigue and weight loss. HENT: Negative for hearing loss and sore throat. Eyes: Negative for blurred vision and double vision. Respiratory: Negative. Cardiovascular: Positive for palpitations. Gastrointestinal: Negative. Genitourinary: Negative for dysuria, frequency, hematuria and urgency. Musculoskeletal: Positive for joint pain. Skin: Negative. Neurological: Negative for dizziness, seizures, loss of consciousness, weakness and headaches. Endo/Heme/Allergies: Negative for environmental allergies. Does not bruise/bleed easily. Psychiatric/Behavioral: Negative for depression. PHYSICAL EXAMINATION: BP 118/64 (BP Site: Right Arm, BP Position: Sitting, BP Cuff Size: Large Adult) Pulse 68 Wt 85.3 kg (188 lb) BMI 32.52 kg/m General: Pleasant elderly woman sitting appears comfortable in no apparent distress. She is alert and oriented x3 HEENT: Carotid upstrokes are brisk bilaterally without bruits. No JVD appreciated. Pulmonary: Lungs are clear no rales, wheezes, rhonchi Cardiovascular: Normal S1, S2 with regular rate and rhythm. No murmurs, rubs, or gallops appreciated. Extremities: Warm, well-perfused, no lower extremity edema. 2+ distal pulses. CARDIOVASCULAR MEDICINE TESTING: ECG in the office 07/06/2020: Sinus rhythm normal axis and intervals. No significant ST or T wave changes; normal ECG Echocardiogram 05/21/2018: - Exam indication: SVT - The left ventricle is normal in size. Left ventricular systolic function is normal. EF = 68 5% (2D biplane) Grade I left ventricular diastolic dysfunction. - The right ventricle is normal in size. Right ventricular systolic function is normal. - The left atrial cavity is mildly dilated. - No apparent valvular heart disease by limitations of this study. 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 IMPRESSION: Ms. [place] is a 81 year old woman with a history of hypertension, dyslipidemia, palpitations secondary to PVCs who presents for routine cardiology follow-up. PLAN AND RECOMMENDATIONS: 1. SVT (supraventricular tachycardia) (HCC) - ICD9: 427.89, ICD10: I47.1 (primary diagnosis) Patient still with occasional episodes of heart racing. Her symptoms seem different than those related to her PVCs. We will check an echocardiogram. May consider repeat Holter monitor. - PERFLUTREN LIPID MICROSPHERES 1.1 MG/ML INJECTION IN NS 10 ML - SODIUM CHLORIDE 0.9 % (FLUSH) INJECTION SYRINGE - ECHO 2. Palpitations - ICD9: 785.1, ICD10: R00.2 - PERFLUTREN LIPID MICROSPHERES 1.1 MG/ML INJECTION IN NS 10 ML - SODIUM CHLORIDE 0.9 % (FLUSH) INJECTION SYRINGE - ECHO 3. Essential hypertension - ICD9: 401.9, ICD10: I10 Well-controlled on current regimen 4. Mixed hyperlipidemia - ICD9: 272.2, ICD10: E78.2 History of severe statin intolerance. Currently taking pravastatin 10 mg every other day. If she has recurrent symptoms of sudden onset leg weakness may need to consider medication adjustment. David Cantu MD documented in this encounter [facility] 10-25-2021 History of Present illness Narrative PT ASSESSMENT - CASTING ROOM [place] presents for Application of splint. Applied Aluminum finger splint with coban to Left thumb. Patient tolerated well. Patient has been instructed in Care and proper application of splint. Patient verbalized understanding. Ary Guevara Ma Ari Araujo MD Department of Orthopaedics Orthopaedics [facility] [address] Dept: [phone] Dept October 25, 2021 CHIEF COMPLAINT: Fracture and New of the Left Thumb HPI Intake information documented in the prior visit with Cynthia Kelly on 10/22/21. Patient states on she was standing at her kitchen counter and had a spasm in both of her legs and gave out on her falling to the floor. Later that night she started having bruising and swelling in her left thumb. Seen in Urgent care the next day. X-rays done and splinted. Patient denies any pain only when she moves her left thumb. Splint was rubbing at the the top of her thumb and at there forearm. Patient had pulled some of the stockinette to cover the fiberglass. Splint intact and removed for exam. Patent is right hand dominant. ASSESSMENT: S62.525A Closed nondisplaced fracture of distal phalanx of left thumb, initial encounter (primary encounter diagnosis) PLAN: Just a small splint for comfort. She can resume activities as tolerated. FOLLOW UP INSTRUCTIONS: As needed Ms. Evelyn Ledesma was advised as to contrast therapies and/or to take analgesics/anti-inflammatories as needed and all contraindications were reviewed. OBJECTIVE: Ms. Evelyn Ledesma is a pleasant 80 year old in no apparent distress. Gen:There were no vitals taken for this visit. nl development, non obese, no deformities ENT: Normocephalic, normal hearing, moist mucosa CV: Pulses:Radial= 2+ and symmetric, capillary refill < 2 secs, no peripheral edema/varicosities Skin: no rash, bruising or lesions. Good turgor. Psych: cooperative and appropriate, alert and oriented x 3, good mood and affect. Musculoskeletal: Mild swelling and resolving ecchymoses consistent with the injury. Gentle flexion extension of the terminal digit without any problems. IMAGING: IMPRESSION: Nondisplaced fracture of the base of the distal phalanx of the left Metal Roaster: PSCB Transcribe Date/Time: Oct 22 2021 2:04P Dictated by : RUT MADDEN MD This examination was interpreted and the report reviewed and electronically signed by: RUT MADDEN MD on Oct 22 2021 2:05PM EST Results-Findings * * *Final Report* * * DATE OF EXAM: Oct 22 2021 2:01PM WOX [id number] - XR DIGIT 3V FRONTAL/LAT/OBL LT / PROCEDURE REASON: Injury of left thumb, initial encounter * * * * Physician Interpretation * * * * EXAMINATION: XR DIGIT 3V FRONTAL/LAT/OBL LT CLINICAL HISTORY: Left thumb pain after fall Technique: XR DIGIT 3V FRONTAL/LAT/OBL LT -- LEFT with 3 views on 3 images Comparison: None RESULT: Nondisplaced fracture of the palmar base of the distal phalanx of the left thumb best seen in the lateral projection. No dislocation. There is narrowing of the triscaphe joint, first carpometacarpal joint, first metacarpophalangeal joint and interphalangeal joint of the thumb with subchondral sclerosis and marginal osteophytes. Supporting Subjective Information Below: Past Medical History: PAST MEDICAL HISTORY Diagnosis Date Allergic rhinitis, cause unspecified Allergic rhinitis Diarrhea Diverticulosis of colon (without mention of hemorrhage) Diverticulosis Diverticulosis of colon (without mention of hemorrhage) Dysmetabolic syndrome X Dysthymic disorder Depression (non-psychotic) External hemorrhoids without mention of complication Generalized osteoarthrosis, unspecified site Heart palpitations HTN (hypertension) Internal hemorrhoids without mention of complication Mitral valve disorders Mild leaking Obesity, unspecified Osteopenia Personal history of colonic polyps Colon polyps Personal history of malignant neoplasm of thyroid 06/08/2001 s/p thyroidectomy 1961 for papillary; radioactive iodine treatment X 2 in 2001 (for follicular) Snoring Unspecified essential hypertension Unspecified hemorrhoids without mention of complication Hemorrhoids Past Surgical History: PAST SURGICAL HISTORY Procedure Laterality Date APPENDECTOMY CARPAL TUNNEL Left long ago Dr. Oakley COLONOSCOPY FLX DX W/COLLJ SPEC WHEN PFRMD 01/29/16 COLONOSCOPY W/BIOPSY SINGLE/MULTIPLE 11/14/07 LAPAROSCOPY SURG CHOLECYSTECTOMY 2003 Cholecystectomy, lap PAST SURGICAL HISTORY OF foot surgery left foot PAST SURGICAL HISTORY OF 2010 partial knee arthroplasty, right PAST SURGICAL HISTORY OF Left partial knee arthroplasty PAST SURGICAL HISTORY OF Bilateral cataract surgery THYROIDECTOMY TOTAL/COMPLETE 2001 history of thyroid cancer--follicular and papillary TOTAL ABDOMINAL HYSTERECT W/WO RMVL TUBE OVARY 1988 Hysterectomy, ROSS Family History: FAMILY HISTORY Problem Relation Age of Onset Diabetes Mother Hypertension Mother Arthritis Sister osteo Arthritis Mother osteo other (abdominal aortic aneurysm [Other]) Father 64 Hypertension Sister Social History: Social History Tobacco Use Smoking status: Never Smokeless tobacco: Never Vaping Use Vaping Use: Never used Substance Use Topics Alcohol use: Yes Alcohol/week: 60.0 standard drinks Comment: two glasses wine a day Drug use: No Medications: Current Outpatient Medications Medication Sig losartan (COZAAR) 25 mg tablet Take 1 tablet by mouth once daily. pravastatin (PRAVACHOL) 10 mg tablet Take 1 tablet by mouth daily at bedtime. PARoxetine (PAXIL) 20 mg tablet Take 1 tablet by mouth once daily. dilTIAZem CD (CARTIA XT) 180 mg 24 hr capsule Take 1 capsule by mouth once daily. spironolactone (ALDACTONE) 25 mg tablet Take 1 tablet by mouth once daily. ALPRAZolam (XANAX) 0.25 mg tablet Take 1 tablet by mouth once daily as needed for up to 90 days. levothyroxine (SYNTHROID) 100 mcg tablet Take 1 tablet by mouth once daily. Cholecalciferol, Vitamin D3, 50 mcg (2,000 unit) cap Take 1 capsule by mouth one time a week. (Patient taking differently: Take 2,000 Units by mouth every other day in the morning.) ibuprofen 200 mg ORAL tablet Take 1-2 tablet's) every four(4) to six(6) hours as needed for pain with food mv-min/folic/vit K/lycop/coQ10 (DAILY MULTIVITAMIN ORAL) Take by mouth once daily. No current facility-administered medications for this visit. Allergies: Accupril [Quinapril], Crestor [Rosuvastatin], Lisinopril, Morphine, Naprosyn [Naproxen], Sulfa (Sulfonamide Antibiotics), and Vioxx [Rofecoxib] ROS: General (negative for fatigue, malaise, weight loss/gain) HEENT (negative for headache, earache, recent vision changes, sinus pain, sore throat) Respiratory (no recent shortness of breath, hemoptysis) CV (negative for chest tightness, palpitations) Musculoskeletal (see HPI) Psych (no depression, anxiety) REFERRING PHYSICIAN: Ms. Evelyn Ledesma was referred to sc for consultation by the following physician. This consultation note will be sent to the following physician by either mail or electronic medical record. Cynthia Kelly [address] [facility] [address] Philippe Ledbetter MD [address] [facility] [address] Ari Araujo MD documented in this encounter [facility] 10-13-2021 Miscellaneous Notes Patient's mammogram screening order will prior to scheduled appointment on 01/28/2022. Patient is not due for annual mammogram until 01/20/22. Thank you. documented in this encounter [facility] 10-06-2021 Instructions Philippe Ledbetter MD - 10/06/2021 3:03 PM EDT Try taking levothyroxine half pill once weekly and whole pill daily the other 7 days. Take B Complex vitamin daily. Do not take with thyroid med. Stay hydrated. documented in this encounter [facility] 10-06-2021 History of Present illness Narrative This note was created using [employer]. Subjective Evelyn Ledesma is a 80 year old female. Patient presents with: F/U 6 months SUBJECTIVE: Evelyn Ledesma is a 80 year old year old lady here today for 6 month follow up appointment for review of medical conditions. Some increased depression with current stressors. Feeling tired all the the time. Sleeping fine. Taking 2 of her BP meds at night so sleeping better. Taking pravastatin every other day. Taking dairy caused diarrhea. Has had episodes of low BPs in 110 range. Does not feel well in 110s. Can be woozy if sits for too long. To have a 3rd back injection. Not in constant pain. 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 Resting helps. Discussed that has HCDPOA and dtr Yanelis is her surrogate decision maker. PAST MEDICAL HISTORY Diagnosis Date Allergic rhinitis, cause unspecified Allergic rhinitis Diarrhea Diverticulosis of colon (without mention of hemorrhage) Diverticulosis Diverticulosis of colon (without mention of hemorrhage) Dysmetabolic syndrome X Dysthymic disorder Depression (non-psychotic) External hemorrhoids without mention of complication Generalized osteoarthrosis, unspecified site Heart palpitations HTN (hypertension) Internal hemorrhoids without mention of complication Mitral valve disorders Mild leaking Obesity, unspecified Osteopenia Personal history of colonic polyps Colon polyps Personal history of 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 pravastatin (PRAVACHOL) 10 mg tablet Take 1 tablet by mouth daily at bedtime. PARoxetine (PAXIL) 20 mg tablet Take 1 tablet by mouth once daily. dilTIAZem CD (CARTIA XT) 180 mg 24 hr capsule Take 1 capsule by mouth once daily. spironolactone (ALDACTONE) 25 mg tablet Take 1 tablet by mouth once daily. levothyroxine (SYNTHROID) 100 mcg tablet Take 1 tablet by mouth once daily. Cholecalciferol, Vitamin D3, 50 mcg (2,000 unit) cap Take 1 capsule by mouth one time a week. (Patient taking differently: Take 2,000 Units by mouth every other day in the morning.) ibuprofen 200 mg ORAL tablet Take 1-2 tablet's) every four(4) to six(6) hours as needed for pain with food doxycycline monohydrate 100 mg tablet Take 1 tablet by mouth twice daily. May transfer to [facility] if less expensive. ALPRAZolam (XANAX) 0.25 mg tablet Take 1 tablet by mouth once daily as needed for up to 90 days. No current facility-administered medications for this visit. Review of Systems Objective BP 122/68 Pulse (!) 59 Wt 84.8 kg (187 lb) SpO2 98% BMI 33.13 kg/m Physical Exam Constitutional: Appearance: Normal appearance. HENT: Head: Normocephalic. Eyes: Conjunctiva/sclera: Conjunctivae normal. Cardiovascular: Rate and Rhythm: Normal rate and regular rhythm. Heart sounds: Normal heart sounds. Pulmonary: Effort: Pulmonary effort is normal. Breath sounds: Normal breath sounds. Musculoskeletal: Right lower leg: Edema (trace edema) present. Skin: General: Skin is warm and dry. Neurological: General: No focal deficit present. Mental Status: She is alert and oriented to person, place, and time. Psychiatric: Mood and Affect: Mood normal. Behavior: Behavior normal. Thought Content: Thought content normal. Judgment: Judgment normal. Right cardona wound healed (fall with abrasion on houseboat)--skin still pink Component Latest Ref Rng & Units 03/18/2021 09/30/2021 Protein, Total 6.3 - 8.0 g/dL 6.7 Albumin 3.9 - 4.9 g/dL 4.3 Calcium 8.5 - 10.2 mg/dL 9.1 9.3 Bilirubin, Total 0.2 - 1.3 mg/dL 0.4 Alkaline Phosphatase 34 - 123 U/L 99 AST 13 - 35 U/L 21 ALT 7 - 38 U/L 23 Glucose 74 - 99 mg/dL 113 (H) 103 (H) BUN 7 - 21 mg/dL 20 21 Creatinine 0.58 - 0.96 mg/dL 1.03 (H) 0.92 Sodium 136 - 144 mmol/L 140 141 Potassium 3.7 - 5.1 mmol/L 4.3 4.5 Chloride 97 - 105 mmol/L 104 107 (H) CO2 22 - 30 mmol/L 25 25 Anion Gap 9 - 18 mmol/L 11 9 eGFR >=60 mL/min/1.73m 62 eGFR- >60 eGFR-All Other Races . 51 WBC 3.70 - 11.00 k/uL 5.59 RBC 3.90 - 5.20 m/uL 4.33 Hemoglobin 11.5 - 15.5 g/dL 14.3 Hematocrit 36.0 - 46.0 % 44.6 MCV 80.0 - 100.0 fL 103.0 (H) MCH 26.0 - 34.0 pg 33.0 MCHC 30.5 - 36.0 g/dL 32.1 RDW-CV 11.5 - 15.0 % 13.0 Platelet Count 150 - 400 k/uL 295 MPV 9.0 - 12.7 fL 10.5 Absolute nRBC <0.01 k/uL <0.01 Cholesterol, Total <200 mg/dL 217 (H) 183 Triglyceride <150 mg/dL 65 88 HDL Cholesterol >39 mg/dL 60 57 LDL Cholesterol <100 mg/dL 144 (H) 108 (H) Non HDL Cholesterol <130 mg/dL 157 (H) 126 Fasting Time hrs 12 14 VLDL Cholesterol <30 mg/dL 13 18 TC:HDL Ratio <5.10 3.62 3.21 LDL:HDL Ratio <2.54 2.40 1.89 Hemoglobin A1C 4.3 - 5.6 % 5.8 (H) 5.7 (H) Estimated Average Glucose mg/dL 120 117 Thyroglobulin 1.6 - 59.9 ng/mL <0.2 (L) TG Antibody Screen <14.4 IU/mL <1.0 Free T3 2.3 - 4.1 pg/mL 1.9 (L) 2.4 TSH 0.270 - 4.200 mIU/L 2.460 0.355 Free T4 0.9 - 1.7 ng/dL 1.2 1.4 Vitamin D 25 Hydroxy 31.0 - 80.0 ng/mL 33.9 36.6 Assessment and Plan ASSESSMENT/PLAN: 1. IFG (impaired fasting glucose) - ICD9: 790.21, ICD10: R73.01 (primary diagnosis) Improved glucose and HgA1C Continue present management. Needs to keep working on diet and exercise with lifestyle changes for effective weight loss as well as prevention of DM, and control of BP and lipids. - COMP METABOLIC PANEL 2. Anxiety and depression - ICD9: 300.00, 311, ICD10: F41.9, F32.A Stable overall but recent stressors with worrying about son (life in general) and granddaughter (she is moving to [facility]). Not overwhelming or severe enough needs change in meds or counseling. Further evaluation and treatment as indicated. 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 Clinically euthyroid. TSH fine. Continue to adjust dose of replacement as indicated based on symptoms and labs. - TSH BLD - T4 FREE/FREE THYROX - T3 FREE BLD - TSH BLD - T4 FREE/FREE THYROX - T3 FREE BLD 4. Mixed hyperlipidemia - ICD9: 272.2, ICD10: E78.2 - good control and - improved control LDL - Continue current medication. - Discussed the benefits of regular aerobic exercise and weight loss. 5. Vitamin D deficiency - ICD9: 268.9, ICD10: E55.9 Level in 30s within normal limits . Continue present management. 6. Class 1 obesity due to excess calories without serious comorbidity with body mass index (BMI) of 31.0 to 31.9 in adult - ICD9: 278.00, V85.31, ICD10: E66.09, Z68.31 Weight coming down. Continue present management. 7. Macrocytosis without anemia - ICD9: 289.89, ICD10: D75.89 Further evaluation and treatment as indicated. - VITAMIN B12 BLOOD - FOLATE SERUM - VITAMIN B6/PYRIDOXIN - CBC - VITAMIN B12 BLOOD - FOLATE SERUM - CBC - VITAMIN B6/PYRIDOXIN 8. Breast cancer screening by mammogram - ICD9: V76.12, ICD10: Z12.31 - Set up for mammogram, yearly mammogram recommended - [facility] SCREENING Philippe Ledbetter MD documented in this encounter [facility] 09-23-2021 Miscellaneous Notes Pt has been called and notified that Rx has been sent into the pharmacy. Colleen Castañeda Ma The following approved medication requests have been transmitted electronically. Signed Prescriptions Disp Refills fluconazole (DIFLUCAN) 150 mg tablet 2 tablet 0 Sig: Take 1 tablet by mouth one time only for 1 dose. Repeat in 3 days as needed. Authorizing Provider: PHILIPPE LEDBETTER MD Follow up as needed. Patient calls to ask provider if she would send in a prescription for vaginal yeast infection. Patient was taking doxycycline for skin infection which is completed but about a week ago patient started having burning/itching with vaginal discharge. Patient has tried OTC creams with no relief. Patient has history of yeast infections but usually able to treat with OTC. Pharmacy is [facility]. Please review and advise, Rhea Lang RN documented in this encounter [facility] 09-09-2021 Miscellaneous Notes Patient's request for medication is as follows: Refused Prescriptions Disp Refills pravastatin (PRAVACHOL) 10 mg tablet [Pharmacy Med Name: PRAVASTATIN SODIUM 10 MG TAB] 90 tablet 11 Sig: take 1 tablet by mouth at bedtime RUY: No Refused By: SELMA WILLIAMSON Reason for Refusal: Patient has requested refill too soon Reason for Refusal Comment: Refilled 04/12/2021 for 30 tabs and 11 refills to [facility]. Prescription(s) as above. Please process accordingly. Selma Williamson LPN documented in this encounter [facility] 09-04-2021 History of Present illness Narrative Images from the original note were not included. Subjective HPI HPI Evelyn Ledesma is a 80 year old female who presents today for CC of wound of right leg, now getting red. This started 5 days ago. Has tried otc atb ointment. Symptoms are worsened by nothing. Denies fever, numbness/tingling of right lower extremity. Last tetanus 2003. Denies pain with ambulation. .Patient presents with: Derm Problem: scrape on right cardona x 08/30 PAST MEDICAL HISTORY Diagnosis Date Allergic rhinitis, cause unspecified Allergic rhinitis Diarrhea Diverticulosis of colon (without mention of hemorrhage) Diverticulosis Diverticulosis of colon (without mention of hemorrhage) Dysmetabolic syndrome X Dysthymic disorder Depression (non-psychotic) External hemorrhoids without mention of complication Generalized osteoarthrosis, unspecified site Heart palpitations HTN (hypertension) Internal hemorrhoids without mention of complication Mitral valve disorders Mild leaking Obesity, unspecified Osteopenia Personal history of colonic polyps Colon polyps Personal history of 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 for papillary; radioactive iodine treatment X 2 in 2001 (for follicular) Snoring Unspecified essential hypertension Unspecified hemorrhoids without mention of complication Hemorrhoids PAST SURGICAL HISTORY Procedure Laterality Date APPENDECTOMY CARPAL TUNNEL Left long ago Dr. Oakley COLONOSCOPY FLX DX W/COLLJ SPEC WHEN PFRMD 01/29/16 COLONOSCOPY W/BIOPSY SINGLE/MULTIPLE 11/14/07 LAPAROSCOPY SURG CHOLECYSTECTOMY 2002 Cholecystectomy, lap PAST SURGICAL HISTORY OF foot surgery left foot PAST SURGICAL HISTORY OF 2010 partial knee arthroplasty, right PAST SURGICAL HISTORY OF Left partial knee arthroplasty PAST SURGICAL HISTORY OF Bilateral cataract surgery THYROIDECTOMY TOTAL/COMPLETE 2001 history of thyroid cancer--follicular and papillary TOTAL ABDOMINAL HYSTERECT W/WO RMVL TUBE OVARY 1988 Hysterectomy, ROSS ALLERGIES Accupril [Quinapril], Lisinopril, Morphine, Naprosyn [Naproxen], Sulfa (Sulfonamide Antibiotics), and Vioxx [Rofecoxib] MEDICATIONS losartan (COZAAR) 25 mg tablet Take 1 tablet by mouth once daily. pravastatin (PRAVACHOL) 10 mg tablet Take 1 tablet by mouth daily at bedtime. PARoxetine (PAXIL) 20 mg tablet Take 1 tablet by mouth once daily. dilTIAZem CD (CARTIA XT) 180 mg 24 hr capsule Take 1 capsule by mouth once daily. spironolactone (ALDACTONE) 25 mg tablet Take 1 tablet by mouth once daily. ALPRAZolam (XANAX) 0.25 mg tablet Take 1 tablet by mouth once daily as needed for up to 90 days. levothyroxine (SYNTHROID) 100 mcg tablet Take 1 tablet by mouth once daily. Cholecalciferol, Vitamin D3, 50 mcg (2,000 unit) cap Take 1 capsule by mouth one time a week. ibuprofen 200 mg ORAL tablet Take 1-2 tablet's) every four(4) to six(6) hours as needed for pain with food doxycycline monohydrate 100 mg tablet Take 1 tablet by mouth twice daily. May transfer to [facility] if less expensive. FAMILY HISTORY Problem Relation Age of Onset Diabetes Mother Hypertension Mother Arthritis Sister osteo Arthritis Mother osteo other (abdominal aortic aneurysm [Other]) Father 64 Hypertension Sister Social History Tobacco Use Smoking status: Never Smoker Smokeless tobacco: Never Used Vaping Use Vaping Use: Never used Substance Use Topics Alcohol use: Yes Alcohol/week: 60.0 standard drinks Comment: two glasses wine a day Drug use: No ROS Objective Blood pressure 118/66, pulse 66, temperature 37 C (98.6 F), resp. rate 16, weight 84.8 kg (187 lb). Component Latest Ref Rng & Units 11/30/2020 Protein, Total 6.3 - 8.0 g/dL 6.8 Albumin 3.9 - 4.9 g/dL 4.5 Calcium 8.5 - 10.2 mg/dL 9.7 Bilirubin, Total 0.2 - 1.3 mg/dL 0.5 Alkaline Phosphatase 34 - 123 U/L 103 AST 13 - 35 U/L 35 Glucose 74 - 99 mg/dL 85 BUN 7 - 21 mg/dL 21 Creatinine 0.58 - 0.96 mg/dL 1.02 (H) Sodium 136 - 144 mmol/L 139 Potassium 3.7 - 5.1 mmol/L 4.2 Chloride 97 - 105 mmol/L 104 CO2 22 - 30 mmol/L 24 Anion Gap 9 - 18 mmol/L 11 ALT 7 - 38 U/L 37 eGFR- >60 eGFR-All Other Races . 52 Physical Exam Constitutional: General: She is not in acute distress. Appearance: She is not toxic-appearing or diaphoretic. HENT: Head: Normocephalic and atraumatic. Pulmonary: Effort: Pulmonary effort is normal. No accessory muscle usage or respiratory distress. Skin: Neurological: Mental Status: She is alert and oriented to person, place, and time. ASSESSMENT/PLAN: 1. Skin infection - ICD9: 686.9, ICD10: L08.9 (primary diagnosis) - Begin treatment with doxycycline - No lymphangetic streaking, this was defined for patient to watch for and to seek medical care immediately if appears - Follow up for recheck in three days if no improvement, sooner if worsening s/s. - DOXYCYCLINE MONOHYDRATE 100 MG TABLET - MUPIROCIN 2 % TOPICAL OINTMENT 2. Need for tetanus booster - ICD9: V03.7, ICD10: Z23 - TETANUS/DIPTHERIA BOOSTER (OVER 7), ADSORBED IM Updated. Agrees to plan Jordon Horvath APRN.CNP documented in this encounter [facility] documented as of this encounter (statuses as of 09/04/2021) [facility]12[facility] History of Past illness Narrative* Problem Noted Date Resolved Date Unspecified vitamin D deficiency 02/15/2006 12/22/2011 documented as of this encounter (statuses as of 09/09/2021) [facility] History of Past illness Narrative* Problem Noted Date Resolved Date Unspecified vitamin D deficiency 02/15/2006 12/22/2011 documented as of this encounter (statuses as of 09/23/2021) [facility] History of Past illness Narrative* Problem Noted Date Resolved Date Unspecified vitamin D deficiency 02/15/2006 12/22/2011 documented as of this encounter (statuses as of 10/08/2021) [address]20-2006 History of Past illness Narrative* Problem Noted Date Resolved Date Unspecified vitamin D deficiency 02/15/2006 12/22/2011 documented as of this encounter (statuses as of 10/13/2021) [address]2006 History of Past illness Narrative* Problem Noted Date Resolved Date Unspecified vitamin D deficiency 02/15/2006 12/22/2011 documented as of this encounter (statuses as of 10/25/2021) [address]2006 History of Past illness Narrative* Problem Noted Date Resolved Date Unspecified vitamin D deficiency 02/15/2006 12/22/2011 Mitral valve disorders(424.0) documented as of this encounter (statuses as of 11/08/2021) [address]2006 History of Past illness Narrative* Problem Noted Date Resolved Date Unspecified vitamin D deficiency 02/15/2006 12/22/2011 Mitral valve disorders(424.0) documented as of this encounter (statuses as of 11/25/2021) [address]-2006 History of Past illness Narrative* Problem Noted Date Resolved Date Unspecified vitamin D deficiency 02/15/2006 12/22/2011 Mitral valve disorders(424.0) documented as of this encounter (statuses as of 12/30/2021) [address]2006 History of Past illness Narrative* Problem Noted Date Resolved Date Unspecified vitamin D deficiency 02/15/2006 12/22/2011 Mitral valve disorders(424.0) documented as of this encounter (statuses as of 02/02/2022) [address]2006 History of Past illness Narrative* Problem Noted Date Resolved Date Unspecified vitamin D deficiency 02/15/2006 12/22/2011 Mitral valve disorders(424.0) documented as of this encounter (statuses as of 03/18/2022) [address]2006 History of Past illness Narrative* Problem Noted Date Resolved Date Unspecified vitamin D deficiency 02/15/2006 12/22/2011 Mitral valve disorders(424.0) documented as of this encounter (statuses as of 03/23/2022) [place] [address]-20-2006 History of Past illness Narrative* Problem Noted Date Resolved Date Unspecified vitamin D deficiency 02/15/2006 12/22/2011 Mitral valve disorders(424.0) documented as of this encounter (statuses as of 04/08/2022) [address]2006 History of Past illness Narrative* Problem Noted Date Resolved Date Unspecified vitamin D deficiency 02/15/2006 12/22/2011 Mitral valve disorders(424.0) documented as of this encounter (statuses as of 04/28/2022) [address]2006 History of Past illness Narrative* Problem Noted Date Resolved Date Unspecified vitamin D deficiency 02/15/2006 12/22/2011 Mitral valve disorders(424.0) documented as of this encounter (statuses as of 05/04/2022) [address]2006 History of Past illness Narrative* Problem Noted Date Resolved Date Unspecified vitamin D deficiency 02/15/2006 12/22/2011 Mitral valve disorders(424.0) documented as of this encounter (statuses as of 05/10/2022) [address]2006 History of Past illness Narrative* Problem Noted Date Resolved Date Unspecified vitamin D deficiency 02/15/2006 12/22/2011 Mitral valve disorders(424.0) documented as of this encounter (statuses as of 05/10/2022) [address]2006 History of Past illness Narrative* Problem Noted Date Resolved Date Unspecified vitamin D deficiency 02/15/2006 12/22/2011 Mitral valve disorders(424.0) documented as of this encounter (statuses as of 05/11/2022) [facility] History of Past illness Narrative* Problem Noted Date Resolved Date Unspecified vitamin D deficiency 02/15/2006 12/22/2011 Mitral valve disorders(424.0) documented as of this encounter (statuses as of 05/16/2022) [place] [address]20-2006 History of Past illness Narrative* Problem Noted Date Resolved Date Unspecified vitamin D deficiency 02/15/2006 12/22/2011 Mitral valve disorders(424.0) documented as of this encounter (statuses as of 06/07/2022) [facility] History of Past illness Narrative* Problem Noted Date Resolved Date Unspecified vitamin D deficiency 02/15/2006 12/22/2011 Mitral valve disorders(424.0) documented as of this encounter (statuses as of 06/11/2022) [facility] History of Past illness Narrative* Problem Noted Date Resolved Date Unspecified vitamin D deficiency 02/15/2006 12/22/2011 Mitral valve disorders(424.0) documented as of this encounter (statuses as of 08/23/2022) [facility] History of Past illness Narrative* Problem Noted Date Diagnosed Date Resolved Date Unspecified vitamin D deficiency 02/15/2006 12/22/2011 Mitral valve disorders(424.0) 11/08/2021 documented as of this encounter (statuses as of 11/07/2022) [facility] History of Past illness Narrative* Problem Noted Date Diagnosed Date Resolved Date Unspecified vitamin D deficiency 02/15/2006 12/22/2011 Mitral valve disorders(424.0) 11/08/2021 documented as of this encounter (statuses as of 12/17/2022) [facility] History of Past illness Narrative* Problem Noted Date Diagnosed Date Resolved Date Unspecified vitamin D deficiency 02/15/2006 12/22/2011 Mitral valve disorders(424.0) 11/08/2021 documented as of this encounter (statuses as of 12/30/2022) [facility] History of Past illness Narrative* Problem Noted Date Diagnosed Date Resolved Date Unspecified vitamin D deficiency 02/15/2006 12/22/2011 Mitral valve disorders(424.0) 11/08/2021 documented as of this encounter (statuses as of 01/12/2023) [facility] History of Past illness Narrative* Problem Noted Date Diagnosed Date Resolved Date Unspecified vitamin D deficiency 02/15/2006 12/22/2011 Mitral valve disorders(424.0) 11/08/2021 documented as of this encounter (statuses as of 01/31/2023) [facility] History of Past illness Narrative* Problem Noted Date Diagnosed Date Resolved Date Unspecified vitamin D deficiency 02/15/2006 12/22/2011 Mitral valve disorders(424.0) 11/08/2021 documented as of this encounter (statuses as of 02/02/2023) [facility] History of Past illness Narrative* Problem Noted Date Diagnosed Date Resolved Date Unspecified vitamin D deficiency 02/15/2006 12/22/2011 Mitral valve disorders(424.0) 11/08/2021 documented as of this encounter (statuses as of 02/03/2023) [facility] History of Past illness Narrative* Problem Noted Date Diagnosed Date Resolved Date Unspecified vitamin D deficiency 02/15/2006 12/22/2011 Mitral valve disorders(424.0) 11/08/2021 documented as of this encounter (statuses as of 02/04/2023) [facility] [place] Diagnosis Skin infection- Primary Unspecified local infection of skin and subcutaneous tissue Need for tetanus booster Need for prophylactic vaccination with tetanus toxoid alone [facility] Diagnosis IFG (impaired fasting glucose)- Primary Impaired fasting glucose Anxiety and depression Dysthymic disorder Postablative hypothyroidism Other postablative hypothyroidism Mixed hyperlipidemia Vitamin D deficiency Unspecified vitamin D deficiency Class 1 obesity due to excess calories without serious comorbidity with body mass index (BMI) of 31.0 to 31.9 in adult Macrocytosis without anemia Other specified diseases of blood and blood-forming organs Breast cancer screening by mammogram [facility] [place] [facility] Diagnosis Closed nondisplaced fracture of distal phalanx of left thumb, initial encounter- Primary [facility] Diagnosis SVT (supraventricular tachycardia) (HCC)- Primary Other specified cardiac dysrhythmias Palpitations Essential hypertension Unspecified essential hypertension Mixed hyperlipidemia [facility] Diagnosis Personal history of malignant neoplasm of thyroid Postablative hypothyroidism Other postablative hypothyroidism [facility] Diagnosis IFG (impaired fasting glucose)- Primary Impaired fasting glucose Essential hypertension Unspecified essential hypertension Postablative hypothyroidism Other postablative hypothyroidism Vitamin D deficiency Unspecified vitamin D deficiency Mixed hyperlipidemia [facility] Diagnosis Anxiety and depression Dysthymic disorder documented in this encounter [facility] note* Diagnosis IFG (impaired fasting glucose)- Primary Impaired fasting glucose DDD (degenerative disc disease), cervical Degeneration of cervical intervertebral disc Mixed hyperlipidemia Stress incontinence Female stress incontinence Postablative hypothyroidism Other postablative hypothyroidism Essential hypertension Unspecified essential hypertension Loose stools Abnormal feces documented in this encounter [facility] note* Diagnosis DDD (degenerative disc disease), cervical- Primary Degeneration of cervical intervertebral disc documented in this encounter [facility] note* Diagnosis DDD (degenerative disc disease), cervical- Primary Degeneration of cervical intervertebral disc documented in this encounter [facility] note* Diagnosis Essential hypertension Unspecified essential hypertension documented in this encounter [facility] note* Diagnosis Anxiety and depression Dysthymic disorder documented in this encounter [facility] note* Diagnosis DDD (degenerative disc disease), cervical- Primary Degeneration of cervical intervertebral disc documented in this encounter [facility] note* Diagnosis SVT (supraventricular tachycardia) (HCC)- Primary Other specified cardiac dysrhythmias Palpitations Essential hypertension Unspecified essential hypertension Mixed hyperlipidemia documented in this encounter [facility] note* Diagnosis Essential hypertension Unspecified essential hypertension documented in this encounter [facility] note* Diagnosis Hypercholesterolemia- Primary Pure hypercholesterolemia Alternating constipation and diarrhea Other symptoms involving digestive system Postablative hypothyroidism Other postablative hypothyroidism Personal history of malignant neoplasm of thyroid Breast cancer screening by mammogram Vitamin D deficiency Unspecified vitamin D deficiency IFG (impaired fasting glucose) Impaired fasting glucose Essential hypertension Unspecified essential hypertension documented in this encounter [facility] note* Diagnosis URI, acute- Primary Acute upper respiratory infections of unspecified site documented in this encounter [facility] note* Diagnosis Encounter for screening mammogram for malignant neoplasm of breast Other screening mammogram documented in this encounter [facility] note* Diagnosis SVT (supraventricular tachycardia)- Primary Other specified cardiac dysrhythmias Palpitations Essential hypertension Unspecified essential hypertension Mixed hyperlipidemia documented in this encounter [facility] note* Diagnosis Breast cancer screening by mammogram documented in this encounter [facility] for referral (narrative)* Outpatient Procedure (Routine) - Authorized Specialty Diagnoses / Procedures Referred By Contac t Referred To [facility] Diagnoses SVT (supraventricular tachycardia) (HCC) Palpitations Procedures ECHO ECHO TTHRC R-T 2D W/WOM-MODE COMPL SPEC&COLR D David Cantu MD [address] [place] [address] [facility] [place] [address] [place] [id number] Referral ID Status Reason Start Date Expiration Date Visits Requested Visits Authorized [id number] Authorized Auto-Generat ed Referral 11/08/2021 11/08/2022 1 1 [facility] for referral (narrative)* Diagnostic Procedure Only (Routine) - Closed Specialty Diagnoses / Procedures Referred By Contac t Referred To Contact [facility] Diagnoses Encounter for screening mammogram for malignant neoplasm of breast Procedures AWA SCREENING SCREENING MAMMOGRAPHY BI 2-VIEW BREAST INC Colleen Hall, [employer] [address] [place] [address] [facility] [address] [place] [id number] Referral ID Status Reason Start Date Expiration Date V isits Requested Visits Authorized [id number] Closed Auto-Generate d Referral 01/28/2022 02/27/2023 1 1 [facility] for referral (narrative)* Outpatient Procedure (Routine) - Pending Review Specialty Diagnoses / Procedures Referred By Contac t Referred To Contact [facility] Diagnoses Palpitations Procedures ECG COMPLETE ECG ROUTINE ECG W/LEAST 12 LDS W/I&R David Cantu MD [address] [place] [address] [facility] [place] [address] [place] [address] Referral ID Status Reason Start Date Expiration Date Visits Requested Visits Authorized [id number] Pending Review Auto-Generat ed Referral 3 01/25/2024 1 1 [facility] for visit Narrative* Diagnostic Procedure Only (Routine) - Closed Specialty Diagnoses / Procedures Referred By Contac t Referred To Contact [facility] Diagnoses Encounter for screening mammogram for malignant neoplasm of breast Procedures AWA SCREENING SCREENING MAMMOGRAPHY BI 2-VIEW BREAST INC CAD Colleen Cardona, GLYCERINE PLANT OPERATOR.CORRECTIONS LIEUTENANT [address] [place] [address] [facility] [address] [place] [address] Referral ID Status Reason Start Date Expiration Date V isits Requested Visits Authorized [id number] Closed Auto-Generate d Referral 01/28/2022 02/27/2023 1 1 [facility] Summary Purpose Family History No Family History Records FoundNo Family History Records FoundNo Family History Records Found Advance Directives No Advanced Directives Records FoundDocuments on File Type Date 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 Advance Directive(s) 01/29/2016 9:20 AM Advance Directive(s) 01/20/2016 4:10 PM Reason for Referral Specialty Diagnoses / Procedures Referred By Contac t Referred To Contact [facility] Diagnoses Breast cancer screening by mammogram Procedures AWA SCREENING SCREENING MAMMOGRAPHY BI 2-VIEW BREAST INC CAD Philippe Ledbetter MD [address] [place] [address] [facility] [address] [place] [address] Referral ID Status Reason Start Date Expiration Date Visits Requested Visits Authorized [id number] Pending Review Auto-Generat ed Referral 10/08/2021 01/06/2022 3 1 Specialty Diagnoses / Procedures Referred By Contac t Referred To Contact [facility] Diagnoses DDD (degenerative disc disease), cervical Procedures CONSULT TO PHYSICAL THERAPY PHYSICAL THERAPY EVALUATION HIGH COMPLEX 45 MINS Colleen Cardona, GLYCERINE PLANT OPERATOR.CORRECTIONS LIEUTENANT [address] [place] [address] [facility] [place] [address] [place] [id number] Referral ID Status Reason Start Date Expiration Date Visits Requested Visits Authorized [id number] Authorized PCP Requested Referral Auto-Generate d Referral 04/08/2022 04/08/2023 99 99 Specialty Diagnoses / Procedures Referred By Contac t Referred To Contact XR IMAGING Diagnoses DDD (degenerative disc disease), cervical Procedures XR CERV GENERAL 2V AP/LAT RADEX SPINE CERVICAL 2 OR 3 VIEWS Colleen Cardona, GLYCERINE PLANT OPERATOR.CORRECTIONS LIEUTENANT [address] [place] [address] Xr Imaging Referral ID Status Reason Start Date Expiration Date Visits Requested Visits Authorized [id number] Pending Review Auto-Generat ed Referral 04/08/2022 05/08/2023 1 1 Specialty Diagnoses / Procedures Referred By Contac t Referred To Contact [facility] Diagnoses DDD (degenerative disc disease), cervical Procedures PT REHAB FOLLOW UP ORDER PT REHAB FOLLOW UP ORDER THERAPEUTIC EXERCISES RE, EA 15 MIN. Selma Lopez, PT [facility] [place] [address] [place] [address] Referral ID Status Reason Start Date Expiration Date Visits Requested Visits Authorized [id number] Pending Review PCP Requested Referral Auto-Generate d Referral 04/27/2022 07/26/2022 1 1 Referral ID Status Reason Start Date Expiration Date Visits Requested Visits Authorized [id number] Authorized Auto-Generat ed Referral 10/07/2022 01/05/2023 3 1 Health Concerns Infection Onset Date Last Indicated Resolved Time COVID-19 Confirmed 01/11/2023 01/11/2023 Additional Source Comments INFORMATION SOURCE (unrecogn ized section and content) DATE CREATED AUTHOR AUTHOR'S ORGANIZ ATION 08/16/2017 [facility] DATE CREATED AUTHOR AUTHOR'S ORGANIZ ATION 03/02/2023 [facility] Source Comments (unrecognize d section and content) In the event this informatio n is protected by the Federal Confidentiality of Alcohol and Drug Abuse Patient Records regulations: The Federal rules restrict any use of the information to criminally investigate or prosecute any alcohol or drug abuse patient.[facility] the event this information is protected by the Federal Confidentiality of Alcohol and Drug Abuse Patient Records regulations: The Federal rules restrict any use of the information to criminally investigate or prosecute any alcohol or drug abuse patient.[facility] Center[facility] the event this information is protected by the Federal Confidentiality of Alcohol and Drug Abuse Patient Records regulations: The Federal rules restrict any use of the information to criminally investigate or prosecute any alcohol or drug abuse patient.[facility] Center[facility] the event this information is protected by the Federal Confidentiality of Alcohol and Drug Abuse Patient Records regulations: The Federal rules restrict any use of the information to criminally investigate or prosecute any alcohol or drug abuse patient.[facility] Center[facility] the event this information is protected by the Federal Confidentiality of Alcohol and Drug Abuse Patient Records regulations: The Federal rules restrict any use of the information to criminally investigate or prosecute any alcohol or drug abuse patient.[facility] Center[facility] the event this information is protected by the Federal Confidentiality of Alcohol and Drug Abuse Patient Records regulations: The Federal rules restrict any use of the information to criminally investigate or prosecute any alcohol or drug abuse patient.[facility] CenterIn the event this information is protected by the Federal Confidentiality of Alcohol and Drug Abuse Patient Records regulations: The Federal rules restrict any use of the information to criminally investigate or prosecute any alcohol or drug abuse patient.[facility] Center[facility] the event this information is protected by the Federal Confidentiality of Alcohol and Drug Abuse Patient Records regulations: The Federal rules restrict any use of the information to criminally investigate or prosecute any alcohol or drug abuse patient.[facility] Center[facility] the event this information is protected by the Federal Confidentiality of Alcohol and Drug Abuse Patient Records regulations: The Federal rules restrict any use of the information to criminally investigate or prosecute any alcohol or drug abuse patient.[facility] CenterIn the event this information is protected by the Federal Confidentiality of Alcohol and Drug Abuse Patient Records regulations: The Federal rules restrict any use of the information to criminally investigate or prosecute any alcohol or drug abuse patient.[facility] CenterIn the event this information is protected by the Federal Confidentiality of Alcohol and Drug Abuse Patient Records regulations: The Federal rules restrict any use of the information to criminally investigate or prosecute any alcohol or drug abuse patient.[facility] CenterIn the event this information is protected by the Federal Confidentiality of Alcohol and Drug Abuse Patient Records regulations: The Federal rules restrict any use of the information to criminally investigate or prosecute any alcohol or drug abuse patient.[facility] CenterIn the event this information is protected by the Federal Confidentiality of Alcohol and Drug Abuse Patient Records regulations: The Federal rules restrict any use of the information to criminally investigate or prosecute any alcohol or drug abuse patient.[facility] CenterIn the event this information is protected by the Federal Confidentiality of Alcohol and Drug Abuse Patient Records regulations: The Federal rules restrict any use of the information to criminally investigate or prosecute any alcohol or drug abuse patient.[facility] CenterIn the event this information is protected by the Federal Confidentiality of Alcohol and Drug Abuse Patient Records regulations: The Federal rules restrict any use of the information to criminally investigate or prosecute any alcohol or drug abuse patient.[facility] CenterIn the event this information is protected by the Federal Confidentiality of Alcohol and Drug Abuse Patient Records regulations: The Federal rules restrict any use of the information to criminally investigate or prosecute any alcohol or drug abuse patient.[facility] CenterIn the event this information is protected by the Federal Confidentiality of Alcohol and Drug Abuse Patient Records regulations: The Federal rules restrict any use of the information to criminally investigate or prosecute any alcohol or drug abuse patient.[facility] CenterIn the event this information is protected by the Federal Confidentiality of Alcohol and Drug Abuse Patient Records regulations: The Federal rules restrict any use of the information to criminally investigate or prosecute any alcohol or drug abuse patient.[facility] CenterIn the event this information is protected by the Federal Confidentiality of Alcohol and Drug Abuse Patient Records regulations: The Federal rules restrict any use of the information to criminally investigate or prosecute any alcohol or drug abuse patient.[facility] CenterIn the event this information is protected by the Federal Confidentiality of Alcohol and Drug Abuse Patient Records regulations: The Federal rules restrict any use of the information to criminally investigate or prosecute any alcohol or drug abuse patient.[facility] CenterIn the event this information is protected by the Federal Confidentiality of Alcohol and Drug Abuse Patient Records regulations: The Federal rules restrict any use of the information to criminally investigate or prosecute any alcohol or drug abuse patient.[facility] CenterIn the event this information is protected by the Federal Confidentiality of Alcohol and Drug Abuse Patient Records regulations: The Federal rules restrict any use of the information to criminally investigate or prosecute any alcohol or drug abuse patient.[facility] CenterIn the event this information is protected by the Federal Confidentiality of Alcohol and Drug Abuse Patient Records regulations: The Federal rules restrict any use of the information to criminally investigate or prosecute any alcohol or drug abuse patient.[facility] CenterIn the event this information is protected by the Federal Confidentiality of Alcohol and Drug Abuse Patient Records regulations: The Federal rules restrict any use of the information to criminally investigate or prosecute any alcohol or drug abuse patient.[facility] CenterIn the event this information is protected by the Federal Confidentiality of Alcohol and Drug Abuse Patient Records regulations: The Federal rules restrict any use of the information to criminally investigate or prosecute any alcohol or drug abuse patient.[facility] CenterIn the event this information is protected by the Federal Confidentiality of Alcohol and Drug Abuse Patient Records regulations: The Federal rules restrict any use of the information to criminally investigate or prosecute any alcohol or drug abuse patient.[facility] CenterIn the event this information is protected by the Federal Confidentiality of Alcohol and Drug Abuse Patient Records regulations: The Federal rules restrict any use of the information to criminally investigate or prosecute any alcohol or drug abuse patient.[facility] CenterIn the event this information is protected by the Federal Confidentiality of Alcohol and Drug Abuse Patient Records regulations: The Federal rules restrict any use of the information to criminally investigate or prosecute any alcohol or drug abuse patient.[facility] CenterIn the event this information is protected by the Federal Confidentiality of Alcohol and Drug Abuse Patient Records regulations: The Federal rules restrict any use of the information to criminally investigate or prosecute any alcohol or drug abuse patient.[facility] CenterIn the event this information is protected by the Federal Confidentiality of Alcohol and Drug Abuse Patient Records regulations: The Federal rules restrict any use of the information to criminally investigate or prosecute any alcohol or drug abuse patient.[facility] CenterIn the event this information is protected by the Federal Confidentiality of Alcohol and Drug Abuse Patient Records regulations: The Federal rules restrict any use of the information to criminally investigate or prosecute any alcohol or drug abuse patient.[facility] CenterIn the event this information is protected by the Federal Confidentiality of Alcohol and Drug Abuse Patient Records regulations: The Federal rules restrict any use of the information to criminally investigate or prosecute any alcohol or drug abuse patient.[facility] Reason for Visit (unrecogniz ed section and content) Specialty Diagnoses / Procedures Referred By Contac t Referred To Contact [facility] Diagnoses DDD (degenerative disc disease), cervical Procedures CONSULT TO PHYSICAL THERAPY PHYSICAL THERAPY EVALUATION HIGH COMPLEX 45 MINS Colleen Cardona, GLYCERINE PLANT OPERATOR.CORRECTIONS LIEUTENANT [address] [place] [address] [facility] [address] [place] [address] Referral ID Status Reason Start Date Expiration Date Visits Requested Visits Authorized [id number] Authorized PCP Requested Referral Auto-Generate d Referral 04/08/2022 04/08/2023 99 99 Reason Comments Derm Problem scrape on right cardona x 7/ Reason Comments Refill Request Reason Comments Patient Question Reason Onset Date Comments F/U 6 months Breast Problem 10/08/2021 Mammogram at [facility] Reason Comments Orders Reason Comments Fracture New Reason Comments Established Patient Follow-Up Reason Onset Date Comments Refill Request 11/24/2021 Reason Comments Refill Request Pravastatin Reason Comments Lab Orders Reason Onset Date Comments Refill Request 03/22/2022 Reason Comments F/U 6 Month Reason Comments PT Eval Specialty Diagnoses / Procedures Referred By Contac t Referred To Contact [facility] Diagnoses DDD (degenerative disc disease), cervical Procedures CONSULT TO PHYSICAL THERAPY PHYSICAL THERAPY EVALUATION HIGH COMPLEX 45 MINS Colleen Cardona, GLYCERINE PLANT OPERATOR.CORRECTIONS LIEUTENANT [address] [place] [address] [facility] [address] [place] [address] Reason Comments Physical Therapy Reason Onset Date Comments Refill Request 05/09/2022 Reason Onset Date Comments Refill Request 05/10/2022 Reason Onset Date Comments Incorrect department 05/09/2022 Reason Comments Established Patient Follow-Up Reason Onset Date Comments Refill Request 06/10/2022 Reason Onset Date Comments Refill Request 08/23/2022 Reason Onset Date Comments F/U 6 months Breast Problem 10/07/2022 Mammogram at [facility] Reason Comments Cough chest congestion, na omayra drainage, throat burning x 3 days Reason Comments Results Specialty Diagnoses / Procedures Referred By Contac t Referred To Contact [facility] Diagnoses Breast cancer screening by mammogram Procedures AWA SCREENING SCREENING MAMMOGRAPHY BI 2-VIEW BREAST INC Philippe García MD [address] [place] [id number] [facility] [address] [place] [address] Referral ID Status Reason Start Date Expiration Date V isits Requested Visits Authorized [id number] Closed Auto-Generate d Referral 10/07/2022 01/05/2023 3 1 Care Teams (unrecognized sec tion and content) Mine Patrol Relationship Specialty Start Date End Date Philippe Ledbetter MD [address] [place] [id number] PCP - General 07/11/01 Mine Patrol Relationship Specialty Start Date End Date Philippe Ledbetter MD [address] [place] [address] PCP - General 07/11/01 Mine Patrol Relationship Specialty Start Date End Date Philippe Ledbetter MD [address] [place] [address] PCP - General 07/11/01 Mine Patrol Relationship Specialty Start Date End Date Philippe Ledbetter MD [address] [place] [id number] PCP - General 07/11/01 Mine Patrol Relationship Specialty Start Date End Date Philippe Ledbetter MD [address] [place] [address] PCP - General 07/11/01 Mine Patrol Relationship Specialty Start Date End Date Philippe Ledbetter MD [address] [place] [id number] PCP - General 07/11/01 Mine Patrol Relationship Specialty Start Date End Date Philippe Ledbetter MD [address] [place] [address] PCP - General 07/11/01 Mine Patrol Relationship Specialty Start Date End Date Philippe Ledbetter MD [address] [facility] [place] [address] PCP - General 07/11/01 Mine Patrol Relationship Specialty Start Date End Date Philippe Ledbetter MD [address] [facility] [place] [address] PCP - General 07/11/01 Mine Patrol Relationship Specialty Start Date End Date Philippe Ledbetter MD [facility] [place] [address] PCP - General 07/11/01 Mine Patrol Relationship Specialty Start Date End Date Philippe Ledbetter MD [address] [place] [address], [place] [address] PCP - General 07/11/01 Mine Patrol Relationship Specialty Start Date End Date Philippe Ledbetter MD [address] [place] [address], [place] [address] PCP - General 07/11/01 Mine Patrol Relationship Specialty Start Date End Date Philippe Ledbetter MD [facility] [place] [address] PCP - General 07/11/01 Mine Patrol Relationship Specialty Start Date End Date Philippe Ledbetter MD [address] [place] [address], [place] [address] PCP - General Internal Medicine 05/10/22 Mine Patrol Relationship Specialty Start Date End Date Philippe Ledbetter MD [facility] [place] [address] PCP - General 07/11/01 05/09/22 Philippe Ledbetter MD [address] [place] [address], [place] [address] PCP - General Internal Medicine 05/10/22 Mine Patrol Relationship Specialty Start Date End Date Philippe Ledbetter MD [address] [facility] [place] [address] PCP - General Internal Medicine 05/10/22 Mine Patrol Relationship Specialty Start Date End Date Philippe Ledbetter MD [address] [facility] [place] [address] PCP - General Internal Medicine 05/10/22 Mine Patrol Relationship Specialty Start Date End Date Philippe Ledbetter MD [address] [facility] [place] [address] PCP - General Internal Medicine 05/10/22 Mine Patrol Relationship Specialty Start Date End Date Philippe Ledbetter MD [address] [facility] [place] [address] PCP - General Internal Medicine 05/10/22 Mine Patrol Relationship Specialty Start Date End Date Philippe Ledbetter MD [address] [facility] [place] [address] PCP - General 07/11/01 05/09/22 Mine Patrol Relationship Specialty Start Date End Date Philippe Ledbetter MD [address] [facility] [place] [address] PCP - General Internal Medicine 05/10/22 Mine Patrol Relationship Specialty Start Date End Date Philippe Ledbetter MD [address] [facility] [place] [address] PCP - General Internal Medicine 05/10/22 Mine Patrol Relationship Specialty Start Date End Date Philippe Ledbetter MD [address] [facility] [place] [address] PCP - General Internal Medicine 05/10/22 Mine Patrol Relationship Specialty Start Date End Date Philippe Ledbetter MD [address] [place] [address] PCP - General Internal Medicine 05/10/22 Mine Patrol Relationship Specialty Start Date End Date Philippe Ledbetter MD [address] [place] [address] PCP - General Internal Medicine 05/10/22 FOR RECORDS PERTAINING TO PATIENTS WHO ARE OR HAVE BEEN ENROLLED IN A CHEMICAL DEPENDENCY/SUBSTANCEABUSE PROGRAM, SOME INFORMATION MAY BE OMITTED. This clinical summary was aggregated from multiple sources. Caution should be exercised in using it in the provision of clinical care. This summary normalizes information from multiple sources, and as a consequence, information in this document may materially change the coding, format and clinical context of patient data. In addition, data may be omitted in some cases. CLINICAL DECISIONS SHOULD BE BASED ON THE PRIMARY CLINICAL RECORDS. [facility] [employer] [facility]. provides no warranty or guarantee of the accuracy or completeness of information in this document.
--- NOTE | 2023-03-06 21:55 | RAD_ITS ---
INDICATION: TRAUMA EXAMINATION/TECHNIQUE: X-RAY - RIGHT XR Hand Min 3 Views COMPARISON: None. FINDINGS: 4 views the right hand. BONES: Normal anatomic alignment without evidence of fracture or subluxation. No concerning bony lesion or abnormal sclerosis to suggest lesion. JOINTS: Moderate to severe diffuse DIP and PIP joint joint space narrowing, periarticular sclerosis, and prominent osteophyte formation. Severe first CMC joint degenerative change. SOFT TISSUES: Unremarkable. RAD/Hand Min 3 Views IMPRESSION: Severe right hand degenerative change without acute osseous abnormality. Electronically Signed: Jamison White MD at 23:34 EST ,
--- NOTE | 2023-03-06 21:55 | RAD_ITS ---
INDICATION: cough and trauma EXAMINATION/TECHNIQUE: X-RAY - XR Chest 2 Views COMPARISON: Chest radiograph 01/23/2023. Findings: Single frontal view of the chest. LUNG PARENCHYMA: Minimal bibasilar atelectasis versus scarring. No significant acute focal airspace disease or mass lesion. PLEURA: No pleural effusion. No pneumothorax. HEART/GREAT VESSELS: Cardiomediastinal silhouette is unremarkable. BONES: Osseous structures are unremarkable for age. RAD/Chest PA and Lateral IMPRESSION: Minimal bibasilar atelectasis versus scarring. No significant acute focal airspace disease. Electronically Signed: Jamison White MD at 23:41 EST ,
--- NOTE | 2023-03-06 21:55 | RAD_ITS ---
INDICATION: trauma EXAMINATION/TECHNIQUE: X-RAY - LEFT XR Hand Min 3 Views COMPARISON: None. FINDINGS: 4 views the left hand. Proximal phalanx of the ring finger suboptimally visualized secondary to ring left in place. BONES: Normal anatomic alignment without evidence of fracture or subluxation. No concerning bony lesion or abnormal sclerosis to suggest lesion. JOINTS: Moderate to severe diffuse DIP and PIP joint joint space narrowing, periarticular sclerosis, and prominent osteophyte formation. Severe first CMC joint degenerative change. SOFT TISSUES: Unremarkable. RAD/Hand Min 3 Views IMPRESSION: Proximal phalanx of the left ring finger suboptimally visualized secondary to ring left in place. Severe left hand degenerative change without acute osseous abnormality. Electronically Signed: Jamison White MD at 23:45 EST ,
[2023-03-06] MEDS: Acetaminophen 500 MG Tablet 1000 MG PO (22:22)
[2023-03-06] MEDS: oxyCODONE 5 MG Tablet PO (22:22)
[2023-03-07 00:35] VITALS: BP 141/72; PULSE 79; RESP 16; O2SAT 100
--- NOTE | 2023-03-07 01:02 | ED.RN ---
Pt ambulates to the restroom using walker without difficulties.
== END 2023-03-07 01:02 | disposition home or self-care (01) ==
PROVIDERS: Emergency Provider Emergency Medicine; PCP Internal Medicine; Visit Provider Emergency Medicine
DX: S00.33XA Contusion of nose, initial encounter (principal); S09.90XA Unspecified injury of head, initial encounter; R20.2 Paresthesia of skin; S16.1XXA Strain of muscle, fascia and tendon at neck level, initial encounter; S00.31XA Abrasion of nose, initial encounter; E78.5 Hyperlipidemia, unspecified; E66.9 Obesity, unspecified; M18.0 Bilateral primary osteoarthritis of first carpometacarpal joints; W01.0XXA Fall on same level from slipping, tripping and stumbling without subsequent striking against object, initial encounter
CPT/HCPCS: 70450; 70486; 71046; 72125; 73130; 99284

== ENCOUNTER → 2024-05-10 | Outpatient (CLI) | payer MEDICARE, OTHER, SELFPAY ==
--- NOTE | 2024-05-10 16:18 | MRI_ITS ---
PROCEDURE: MRI cervical spine without IV contrast REASON FOR EXAM: PAIN TECHNIQUE: Multisequence multiplanar MR images of the cervical spine were obtained without the administration of intravenous contrast. COMPARISON: 03/06/2023 FINDINGS: Vertebral body heights are within normal limits. Negative for acute fracture or marrow replacement. Severe degenerative disc disease from C4 through C7. No significant malalignment. Spinal cord is of normal caliber, contour and signal intensity. No paraspinal mass. C2-3: No focal disc abnormality, spinal stenosis or foraminal narrowing. Mild/moderate bilateral facet arthropathy. C3-4: No focal disc abnormality or significant spinal stenosis. Mild bilateral uncovertebral and facet arthropathy. Mild/moderate bilateral foraminal narrowing. C4-5: Posterior disc osteophyte complex. Bilateral facet and uncovertebral arthrosis. Severe spinal stenosis. Severe bilateral foraminal narrowing, greater on the left. C5-6: Posterior disc osteophyte complex. Bilateral facet and uncovertebral arthrosis. Moderate spinal stenosis. Moderate/severe bilateral foraminal narrowing. C6-7: Posterior disc osteophyte complex. Bilateral uncovertebral arthrosis. Mild spinal stenosis. Mild/moderate left foraminal narrowing. C7-T1: No focal disc abnormality, spinal stenosis or significant foraminal narrowing. MRI/Spine Cervical (Routine) IMPRESSION: 1. Acquired severe and moderate spinal stenosis at C4-5 and C5-C6 respectively. 2. Acquired multilevel foraminal narrowing, greatest at C4-5 and C5-C6 as above . Reading Location: [facility]
== END | disposition home or self-care (01) ==
LOC: MRI 16:13
PROVIDERS: PCP Internal Medicine; Referring Provider Student in an Organized Health Care Education/Training Program; Visit Provider Student in an Organized Health Care Education/Training Program
DX: M50.10 Cervical disc disorder with radiculopathy, unspecified cervical region (principal)
CPT/HCPCS: 72141